=== PATIENT | female | born 1945 | race Caucasian/White ===

== ENCOUNTER 2024-11-10 23:19 | Inpatient (IN) | payer OTHER, MEDICARE, SELFPAY ==
[2024-11-10 17:27] VITALS: BP 95/51
[2024-11-10 17:58] LABS: Hematocrit 33.6 % (37.0-47.0); Hemoglobin 11.1 g/dL (12.0-16.0); Mean Corp Hgb Conc. 33.0 g/dL (33.0-37.0); Mean Corpuscular Volume 87.3 fL (81.0-99.0); Nucleated Red Blood Cells % 0 %; Platelet Count 364 10^3/uL (130-400); Red Cell Dist. Width 14.9 % (11.5-14.5)
[2024-11-10 18:18] LABS: ALT (SGPT) 15 U/L (0-35); AST (SGOT) 16 U/L (14-36); Albumin 3.5 g/dl (3.5-5.0); Alkaline Phosphatase 42 U/L (38-126); Blood Urea Nitrogen 48 mg/dl (7-17); Calcium 8.9 mg/dl (8.4-10.2); Carbon Dioxide 20 mmol/L (22-30); Chloride 105 mmol/L (98-107); Glucose 97 mg/dl (70-99); Potassium 4.3 mmol/L (3.5-5.1); Sodium 132 mmol/L (135-145); Total Protein 5.9 g/dl (6.3-8.2); eGFR 29.94
[2024-11-10 18:30] VITALS: BP 102/81
[2024-11-10 18:42] VITALS: BMI 23.0
--- NOTE | 2024-11-10 18:48 | ED.GENMED ---
History of Present Illness
General
Chief Complaint: Urinary Symptoms
Source: patient
Exam Limitations: none
Time Seen by Provider: 11/10/24 18:41
History of Present Illness
History of Present Illness:
See MDM
Past History
Past History
ED Past Medical History: HTN and NIDDM
ED Past Surgical History: Orthopedic
Social History
Tobacco: Non-smoker
Alcohol: None
Phy Exam
Physical Exam
Physical Exam:
See MDM
Course
Orders/Labs/Results
Orders:
Orders
11/10/24 17:46
CBC/With Diff [Complete Blood Count/With Diff] Urgent
Comprehensive Metabolic Panel Urgent
11/10/24 18:48
0.9% Sodium Chloride 1000 ml [Nss] 1,000 ml IV BOLUS
11/10/24 19:37
STOOL [C difficile Antigen & Toxins] Urgent
[facility] Source: Feces/Stool
Specimen Description:
Stool Culture Urgent
[facility] Source: Feces/Stool
Specimen Description:
11/10/24 20:37
Urinalysis Reflex To Culture Urgent
Abnormal Lab Results
11/10/24
17:46
WBC 11.4 H 10^3/uL
(4.8-10.8)
RBC 3.85 L 10^6/uL
(4.20-5.40)
Hgb 11.1 L g/dL
(12.0-16.0)
Hct 33.6 L %
(37.0-47.0)
RDW 14.9 H %
(11.5-14.5)
Abs Immat Gran (auto) 0.1 H 10^3/uL
(0-0.05)
Absolute Neuts (auto) 7.8 H 10^3/uL
(1.4-6.5)
Absolute Monos (auto) 0.9 H 10^3/uL
(0.1-0.6)
Immature Gran % 0.6 H %
(0-0.5)
Sodium 132 L mmol/L
(135-145)
Carbon Dioxide 20 L mmol/L
(22-30)
BUN 48 H mg/dl
(7-17)
Creatinine 1.7 H mg/dL
(0.6-1.0)
Total Protein 5.9 L g/dl
(6.3-8.2)
11/10/24 17:46
11/10/24 17:46
Vital Signs
Initial and Last Documented VS:
Initial Vital Signs
Temp Pulse Resp BP Pulse Ox
98.9 F 89 16 95/51 98
11/10/24 17:27 11/10/24 17:27 11/10/24 17:27 11/10/24 17:27 11/10/24 17:27
Last Documented Vital Signs
Temp Pulse Resp BP Pulse Ox
98.9 F 89 16 102/81 87
11/10/24 17:27 11/10/24 17:27 11/10/24 17:27 11/10/24 18:30 11/10/24 18:50
MDM/Problems Addressed
Differential Diagnosis Includes:
Note:
CHIEF COMPLAINT(S)
Diarrhea for a couple of days, concern for urinary tract infection.
HISTORY OF PRESENT ILLNESS
The patient is an 79-year-old female presenting with diarrhea for several days. She reports that the diarrhea is not constant and occasionally she takes medication, possibly loperamide, to stop it. She denies any associated abdominal pain except for
a non-tender sensation in the upper abdomen on self-examination. The patient also mentions feeling 'a little off,' as noted by family members, with respect to responding to questions. She has not experienced diarrhea today.
The patient denies any recent antibiotic use and has no history of Clostridioides difficile infection. Concerns were raised by her daughter, who is a nurse and suspects a possible urinary tract infection. The patients dehydration was noted and
likely contributes to her symptoms. There is no significant recent pain, and there was no tenderness upon abdominal palpation.
PAST MEDICAL AND SURGICAL HISTORY
The patient mentioned a past consideration for testing related to diverticulitis or diverticulosis, but she is uncertain about the specifics or outcomes of those considerations.
ADDITIONAL HISTORY OBTAINED FROM SOURCES OTHER THAN THE PATIENT
Per the patient�s daughter, there is a concern for a urinary tract infection and a suggestion of the patient being 'a little off' when answering questions.
REVIEW OF SYSTEMS
- Gastrointestinal: Diarrhea for the past few days, no abdominal pain on palpation.
- Neurological: Family reports the patient sometimes appears 'a little off' in her responses.
PHYSICAL EXAM
General: Alert, no acute distress.
Skin: Warm, dry.
Head: Normocephalic, atraumatic
Neck: Appears supple, trachea midline.
Eyes, Ears, Nose, Mouth, and Throat: Mildly dry mucous membranes
Cardiovascular: No signs of cyanosis
Respiratory: Respirations are non-labored.
Abdomen: Non-distended. Soft nontender
Musculoskeletal: No deformities
Neurological: No focal neurological deficit observed.
Psychiatric: Cooperative, appropriate mood and affect.
PLAN
1. Administer intravenous fluids to manage dehydration.
2. Obtain a urine sample to rule out a urinary tract infection.
3. Consider collecting a stool sample if diarrhea persists and symptoms warrant further investigation.
4. Monitor the patient�s overall condition and mental status.
5. Discussion with the patients daughter for continued home care and observation for further abnormalities.
DIFFERENTIAL DIAGNOSIS
The Differential Diagnosis includes, in no particular order and is not limited to:
1. Viral gastroenteritis
2. Bacterial gastroenteritis
3. Diverticulitis
4. Urinary tract infection
5. Medication-induced diarrhea
6. Clostridioides difficile infection
7. Electrolyte imbalance
8. Dehydration
9. Depression or anxiety
10. Cognitive dysfunction or delirium
11/10/24 - 19:37
Patient exhibits elevated creatinine and decreased GFR, suggesting pre-renal etiology, likely due to dehydration. Admittance for IV fluids is planned. Urinalysis is pending for further evaluation. Patient has a history of chronic pain and has not
taken morphine for four days, raising the possibility of mild opiate withdrawal contributing to diarrhea.
SUMMARY OF ENCOUNTER
The patient, an 79-year-old female, presented with diarrhea for several days and concerns for a urinary tract infection. In the emergency department, she was found to be dehydrated, with elevated creatinine and decreased GFR, suggesting acute kidney
injury. Due to her inability to provide urine and stool samples for immediate analysis and considering her age and presenting symptoms, she was admitted for further evaluation and treatment with intravenous fluids.
DISPOSITION
Admit
ASSESSMENT
The patient displays signs of acute kidney injury, dehydration, and possible urinary tract infection or gastroenteritis. Concerns for C. difficile infection are less likely as the patient was unable to provide a stool sample.
PLAN
1. Admit the patient for further evaluation.
2. Administer intravenous fluids to address dehydration and potential acute kidney injury.
3. Obtain urine and stool samples for further diagnostic investigation once feasible.
4. Conduct a comprehensive workup to assess renal function and potential infections.
5. Consultation with the hospitalist service for inpatient management and further workup.
INDEPENDENT REVIEW OF LABS AND INTERPRETATION OF TESTS
My independent review indicates elevated creatinine and decreased GFR, consistent with pre-renal etiology likely due to dehydration. Urinalysis is pending.
MEDICAL DECISION MAKING
-Complexity of Data Reviewed: Chronic conditions affecting care, including potential diverticulitis, diverticulosis, and suspicion of urinary tract infection. Differential Diagnosis includes viral gastroenteritis, bacterial gastroenteritis,
diverticulitis, urinary tract infection, medication-induced diarrhea, Clostridioides difficile infection, electrolyte imbalance, dehydration, depression or anxiety, cognitive dysfunction, or delirium.
-Data:
Category 1
Clinical information was obtained from an independent historian, the patients daughter, raising concerns about the patients condition. Testing was considered, but stool samples were not collected due to the patients inability to provide, making C.
difficile less likely.
-Risk:
The decision for hospitalization was made to ensure proper management of the patients acute kidney injury, dehydration, and potential infectious process due to her symptoms and age.
DIAGNOSIS
Acute Kidney Injury (N17.9)
Dehydration (E86.0)
Suspicion of Urinary Tract Infection (N39.0)
Suspected Viral Gastroenteritis (A08.4), pending further investigation
*Pulse Oximetry
SaO2: 87
Oxygen Mode of Delivery: Room air
Patient hypoxic: no
*Critical Care Note
Total Time (30-74mins, 75-104mins- exclusive of procedures): Not Applicable
ED Attending Note
-
Portions of this chart may have been created with voice recognition software.� Occasional wrong word or��sound alike� substitutions may have occurred due to the inherent limitations of voice recognition software.
Discharge Plan
Departure
Patient Disposition: Admit
Date of Disposition: 11/10/24
Time of Disposition: 21:51
Admit to: Med/Surg
Presentation/result/management discussed w/ accepting MD/DO: Hospitalist
Discharge Problem:
Acute dehydration, HECTOR (acute kidney injury)
Prescriptions:
No Action
diltiazem HCl [Cardizem CD] 240 MG capsule,extended release 24hr
240 mg PO DAILY
pediatric multivitamin 1 EACH tablet,chewable
1 ea PO DAILY
aspirin 81 MG tablet,delayed release (DR/EC)
81 mg PO DAILY
esomeprazole magnesium [Nexium] 40 MG capsule,delayed release(DR/EC)
40 mg PO DAILY
escitalopram oxalate 20 MG tablet
20 mg PO DAILY
fenofibrate nanocrystallized 145 MG tablet
145 mg PO DAILY
cholecalciferol (vitamin D3) [Vitamin D3] 1,000 UNIT tablet
1,000 unit PO DAILY
Referrals:
Carissa Barreto MD [Family Provider, Family Practice]
Interventions
Interventions:
*Risk Screen - Suicide Last Done: 11/10/24 17:27
*General Assessment Last Done: 11/10/24 18:43
*Neglect/Abuse Screening Last Done: 11/10/24 17:27
*ED- Fall Risk Assessment Last Done: 11/10/24 18:43
*ED COVID-19 Vaccine History Last Done: 11/10/24 18:43
ED-Female Genitourinary Assessment Last Done: 11/10/24 18:43
Discharge Date and Time
Print Language: EAST [place]
[2024-11-10] MEDS: NSS 1000 IV (18:51)
[2024-11-10 20:51] VITALS: BP 121/55
[2024-11-10 21:00] VITALS: BP 114/47
[2024-11-10 22:00] VITALS: BP 118/56
[2024-11-10 22:06] LABS: Urine Character Clear (Clear)
[2024-11-10 22:19] LABS: Urine Squamous Cell 0-2 /LPF (Few)
[2024-11-10 22:20] LABS: Urine Red Blood Cell 0-2 /HPF (0-2); Urine White Cell 0-2 /HPF (0-5)
--- NOTE | 2024-11-10 22:22 | HPS.HSE ---
Family Physician
-
Family Physician: Carissa Barreto
Chief Complaint
-
diarrhea and weakness
History of Present Illness
Ms. Sue Sexton is a 79 yo woman with hx spinal stenosis, essential HTN, NIDDM, DVT who presents to the ER complaining of several days of diarrhea and progressive weakness.
History obtained from patient and I called daughter. Patient states diarrhea started several days ago. It has been decreasing in frequency. Non-bloody. Per daughter she has been progressively weak, and not eating well. Daughter noticed some
reflux/vomit on patient's pillow. Patient denies abdominal pain.
No fevers/chills. No chest pain or trouble breathing.
Medical History
Past Medical History
Past Medical History: Reports Other (spinal stenosis, essential HTN, NIDDM, DVT )
Past Surgical History: Reports Orthopedic
Social History
Tobacco: Non-smoker
Alcohol: None
Family History
Family History: Not pertinent
Allergies / Home Medications
Allergies reflects when Allergies were last updated in [facility].
Home Medications with original date entered in [facility]
Allergy/Medication List:
Allergies
Allergy/AdvReac Type Severity Reaction Status Date / Time
No Known Allergies Allergy Verified 06/02/13 07:39
Home Medications
diltiazem HCl 240 mg capsule,extended release 24 hr (Cardizem CD) 300 mg PO DAILY 06/02/13
fenofibrate nanocrystallized 145 mg tablet 145 mg PO DAILY 06/02/13
apixaban 2.5 mg tablet (Eliquis) 2.5 mg PO BID 11/10/24
buspirone 10 mg tablet 10 mg PO BID 11/10/24
lisinopril 40 mg tablet (Zestril) 40 mg PO DAILY 11/10/24
metformin 500 mg tablet 500 mg PO DAILY 11/10/24
mirtazapine 15 mg tablet 15 mg PO HS 11/10/24
montelukast 10 mg tablet (Singulair) 10 mg PO DAILY 11/10/24
morphine 15 mg immediate release tablet 15 mg DAILY 11/10/24
oxycodone-acetaminophen 10 mg-325 mg tablet (Percocet) 1 tab PO Q4H PRN severe pain 11/10/24
trazodone 150 mg tablet 150 mg HS 11/10/24
venlafaxine 100 mg tablet 225 mg PO DAILY 11/10/24
Review of Systems
-
History Source: Patient
A 12 point ROS was completed and negative except as noted: Yes
Physical Exam
Vital Signs
Vital Signs
Temp Pulse Resp BP Pulse Ox
98.9 F 89 16 118/56 90
11/10/24 17:27 11/10/24 17:27 11/10/24 17:27 11/10/24 22:00 11/10/24 22:04
Physical Exam
General: No Apparent Distress
HEENT: PERRLA
Respiratory: Clear; No Wheezes
Cardiac: S1/S2 and Regular Rhythm
GI: Soft and Non Tender
Musculoskeletal: No Edema
Skin: Warm and Dry; No Rash
Neuro: AO x 3
Psych: Calm
Laboratory Results
-
11/10/24 17:46
11/10/24 17:46
Laboratory Results
Total Bilirubin 0.5 mg/dl (0.2-1.3) 11/10/24 17:46
AST 16 U/L (14-36) 11/10/24 17:46
ALT 15 U/L (0-35) 11/10/24 17:46
Alkaline Phosphatase 42 U/L (38-126) 11/10/24 17:46
Data Reviewed
-
Diagnostic Radiology: Report Reviewed by me
Lab Data: Labs Reviewed by me
Impression/Plan
-
Ms. Sue Sexton is a 79 yo woman with hx spinal stenosis, essential HTN, NIDDM, DVT who presents to the ER complaining of several days of diarrhea and progressive weakness.
Triage VS: T 98.9, P 89, RR 16, BP 95/51, SpO2 98%
LABS: WBC 11.4, Hg 11.1, PLT 364, Na 132, K+ 4.3, CO2 20, BUN 48, Cr 1.7, Glucose 97, liver enzymes WNL
UA with 0-2 WBC
MAR: 1L IVF
Diarrhea
Weakness
HECTOR with creatinine 1.7
-follow up C. Diff, stool culture, norovirus
-continue IVF (LR) overnight
-patient has no abdominal pain, reports being hungry - diet ordered
-PT/OT
-hold BENDING FRAME OPERATOR Lisinopril
-monitor renal function
-add on magnesium
Essential HTN
-hold Lisinopril as above
-continue BENDING FRAME OPERATOR Diltiazem
Spinal Stenosis
Hx Spinal Surgery
Chronic Pain, Opiate Dependence
-daughter states that patient hasn't received her morning Morphine in several days. Currently patient denying pain
-will continue PRN Percocet 10
-resume standing Morphine if patient has significant pain
-PT/OT
NIDDM
-hold BENDING FRAME OPERATOR Metformin
Hx DVT
-BENDING FRAME OPERATOR Eliquis, patient has not yet taken evening dose
Depression
-BENDING FRAME OPERATOR Remeron
-BENDING FRAME OPERATOR Buspar
-BENDING FRAME OPERATOR Effexor ER 225mg daily
I confirmed med rec with daughter (RN) at home
DVT PPx Eliquis
FULL CODE
[2024-11-10 23:05] VITALS: BP 132/102
[2024-11-10] MEDS: BUSPAR 10 MG PO (23:12)
[2024-11-10] MEDS: ELIQUIS 2.5 MG PO (23:12)
[2024-11-10] MEDS: REMERON 15 MG PO (23:12)
[2024-11-10 23:42] LABS: Magnesium 1.6 mg/dl (1.6-2.3)
[2024-11-11] VITALS (7 sets, daily range): BP systolic 123–169; BP diastolic 64–103; PULSE 102; O2SAT 94; BMI 23.4
[2024-11-11 00:53] LABS: Glucose - Point of Care 98 mg/dl (70-99)
[2024-11-11] MEDS: LR 1000 IV ×2 (01:09→13:27)
[2024-11-11 07:49] LABS: Glucose - Point of Care 114 mg/dl (70-99)
[2024-11-11 07:57] LABS: Hematocrit 33.4 % (37.0-47.0); Hemoglobin 11.1 g/dL (12.0-16.0); Mean Corp Hgb Conc. 33.2 g/dL (33.0-37.0); Mean Corpuscular Volume 86.5 fL (81.0-99.0); Platelet Count 363 10^3/uL (130-400); Red Cell Dist. Width 14.6 % (11.5-14.5)
[2024-11-11] MEDS: DESENEX/MITRAZOL/ZEASORB 1 APPLIC TOPICAL ×2 (08:02→19:07)
[2024-11-11] MEDS: NOVOLOG FLEXPEN-LOW RESISTANCE SC ×2 (08:02→12:51)
[2024-11-11] MEDS: ELIQUIS 2.5 MG PO ×2 (08:02→19:11)
[2024-11-11] MEDS: BUSPAR 10 MG PO ×2 (08:02→19:06)
[2024-11-11] MEDS: EFFEXOR XR 225 MG PO (08:03)
[2024-11-11] MEDS: SINGULAIR 10 MG PO (08:03)
[2024-11-11] MEDS: CARDIZEM CD 300 MG PO ×2 (08:15→08:31)
[2024-11-11 08:23] LABS: Blood Urea Nitrogen 33 mg/dl (7-17); Calcium 9.3 mg/dl (8.4-10.2); Carbon Dioxide 24 mmol/L (22-30); Chloride 109 mmol/L (98-107); Estimated Creatinine Clearance 33 ml/min; Glucose 100 mg/dl (70-99); Magnesium 1.6 mg/dl (1.6-2.3); Potassium 4.4 mmol/L (3.5-5.1); Sodium 138 mmol/L (135-145); eGFR 50.48
[2024-11-11 08:54] LABS: Glycohemoglobin (HgbA1c) 6.5 % (4.0-5.6)
[2024-11-11 12:26] LABS: Glucose - Point of Care 117 mg/dl (70-99)
--- NOTE | 2024-11-11 12:48 | W.PN.HOSP.TC ---
Today's Communication/Plan
-
Assessment / Plan
Assessment / Plan
General: No Apparent Distress, uncomfortable due to copious loose stools
HEENT: NormoCephalic, Moist mucous membranes, Atraumatic
Respiratory: Clear and Non Labored Respirations
Cardiac: S1/S2 and Regular Rhythm; No Rub or Gallop
GI: Soft, mild TTP, Non Distended and Normal Bowel Sounds
Musculoskeletal: No Edema, no deformity
Skin: Warm and dry
: NO Walls
Neuro: Awake, Alert, Nonfocal/grossly intact
Psych: Calm and cooperative
Ms. Sexton is an 79-year-old female with a medical history of spinal stenosis (on chronic pain medications), hypertension, DVT (on low-dose Eliquis), COPD/asthma, glaucoma, polymyositis, and [id number] diabetes mellitus who presented
with nonbloody diarrhea and progressive weakness. She was mildly hypotensive and found to have an HECTOR with a creatinine of 1.7. She was started on IV fluids and has been admitted for further evaluation and management.
Diarrhea:
- Unclear etiology, infectious versus possible withdrawal symptom after missing several days of her oral morphine sulfate which she takes for back pain
- Stool studies including C. difficile and norovirus pending
- Continuing IV fluids, monitor electrolytes and replete as needed
- Restarting home dose of morphine sulfate, will monitor for symptom improvement
- If infectious workup is negative, will treat supportively with loperamide as needed
HECTOR:
- Suspect prerenal in the setting of hypovolemia due to diarrhea
- Initial creatinine 1.7, improved to 1.1 on labs today
- Will continue resuscitative fluids and monitor renal function
Hypertension:
-Presenting hypotension is now resolved
- Will resume home lisinopril 40 mg daily
Spinal stenosis, chronic back pain:
- Opiate dependent, will continue home dose of morphine sulfate
- Additional Percocet as needed which is her home regimen
NIDDM:
- Holding home metformin due to presenting renal dysfunction
- Treating with sliding scale insulin for now
- Blood glucose currently well-controlled, continue Accu-Cheks
- Hemoglobin A1c 6.5%
History of DVT:
- Continue home low-dose Eliquis
Depression:
- Continue home Remeron 15 mg at night, buspirone 10 mg twice daily, and venlafaxine 225 mg daily
DVT prophylaxis: Eliquis
CODE STATUS: Full code
Total time spent on today's encounter was 41 minutes
Anticipated Discharge: 24 - 48 hours
Subjective/Interval History
-
Date of Service: November 11, 2024
Patient was seen and examined at bedside this morning. Having multiple episodes of watery diarrhea. Now experiencing abdominal pain and cramping. C. difficile testing pending.
Objective Data
-
Labs:
Laboratory Results
11/11/24
07:33
WBC 8.9
Hgb 11.1 L
Hct 33.4 L
Plt Count 363
Sodium 138
Potassium 4.4
Chloride 109 H
Carbon Dioxide 24
BUN 33 H
Creatinine 1.1 H
Glucose 100 H
Calcium 9.3
Vital Signs:
Vital Signs
Temp Pulse Resp BP Pulse Ox
98 F 98 16 165/86 96
11/11/24 07:45 11/11/24 08:31 11/11/24 07:45 11/11/24 08:31 11/11/24 07:45
I&O
11/10/24 11/11/24 11/12/24
06:59 06:59 06:59
Intake Total 680 / 680
Output Total 100 / 100
Balance 680 / 680 -100 / -100
Review of Systems
-
History Source: Patient
All other systems: Reviewed and negative
Abdomen/GI: Reports Abdominal Pain and Diarrhea
Physical Exam
-
General: No Apparent Distress
[2024-11-11] MEDS: MS CONTIN (EXTENDED RELEASE) PO (13:27)
[2024-11-11] MEDS: ZESTRIL 40 MG PO (13:27)
[2024-11-11] MEDS: ROXICODONE 5 MG PO (15:14)
[2024-11-11 17:11] LABS: Glucose - Point of Care 165 mg/dl (70-99)
[2024-11-11] MEDS: NOVOLOG FLEXPEN-LOW RESISTANCE 1 UNITS SC (17:43)
[2024-11-11] MEDS: MS CONTIN (EXTENDED RELEASE) 15 MG PO (19:06)
[2024-11-11] MEDS: DESYREL 150 MG PO (21:01)
[2024-11-11] MEDS: REMERON 15 MG PO (21:02)
[2024-11-11 21:58] LABS: Glucose - Point of Care 105 mg/dl (70-99)
[2024-11-12] MEDS: LR 1000 IV (02:13)
[2024-11-12 07:24] VITALS: BP 145/79
[2024-11-12] MEDS: ZESTRIL 40 MG PO (07:49)
[2024-11-12] MEDS: EFFEXOR XR 225 MG PO (07:49)
[2024-11-12] MEDS: SINGULAIR 10 MG PO (07:50)
[2024-11-12] MEDS: ELIQUIS 2.5 MG PO ×2 (07:50→21:01)
[2024-11-12] MEDS: BUSPAR 10 MG PO ×2 (07:50→21:01)
[2024-11-12] MEDS: MS CONTIN (EXTENDED RELEASE) 15 MG PO ×2 (07:50→20:59)
[2024-11-12] MEDS: DESENEX/MITRAZOL/ZEASORB 1 APPLIC TOPICAL ×2 (07:51→21:02)
[2024-11-12 08:04] LABS: Hematocrit 31.5 % (37.0-47.0); Hemoglobin 10.6 g/dL (12.0-16.0); Mean Corp Hgb Conc. 33.7 g/dL (33.0-37.0); Mean Corpuscular Volume 84.5 fL (81.0-99.0); Nucleated Red Blood Cells % 0 %; Red Cell Dist. Width 14.4 % (11.5-14.5)
[2024-11-12 08:17] LABS: Glucose - Point of Care 102 mg/dl (70-99)
[2024-11-12 08:23] LABS: Blood Urea Nitrogen 19 mg/dl (7-17); Calcium 9.3 mg/dl (8.4-10.2); Carbon Dioxide 23 mmol/L (22-30); Chloride 111 mmol/L (98-107); Estimated Creatinine Clearance 52 ml/min; Glucose 94 mg/dl (70-99); Magnesium 1.5 mg/dl (1.6-2.3); Potassium 4.5 mmol/L (3.5-5.1); Sodium 138 mmol/L (135-145); eGFR > 60.00
[2024-11-12] MEDS: NOVOLOG FLEXPEN-LOW RESISTANCE SC ×2 (08:26→12:02)
[2024-11-12 11:19] LABS: Glucose - Point of Care 138 mg/dl (70-99)
--- NOTE | 2024-11-12 11:31 | W.PN.HOSP.TC ---
Today's Communication/Plan
-
Assessment / Plan
Assessment / Plan
General: No Apparent Distress, uncomfortable due to copious loose stools
HEENT: NormoCephalic, Moist mucous membranes, Atraumatic
Respiratory: Clear and Non Labored Respirations
Cardiac: S1/S2 and Regular Rhythm; No Rub or Gallop
GI: Soft, mild TTP, Non Distended and Normal Bowel Sounds
Musculoskeletal: No Edema, no deformity
Skin: Warm and dry
: NO Walls
Neuro: Awake, Alert, Nonfocal/grossly intact
Psych: Calm and cooperative
Ms. Sexton is an 79-year-old female with a medical history of spinal stenosis (on chronic pain medications), hypertension, DVT (on low-dose Eliquis), COPD/asthma, glaucoma, polymyositis, and fbt-lrrffrk-ekyqgskit diabetes mellitus who presented
with nonbloody diarrhea and progressive weakness. She was mildly hypotensive and found to have an HECTOR with a creatinine of 1.7. She was started on IV fluids and has been admitted for further evaluation and management.
Diarrhea:
- Unclear etiology
- Stool studies negative for C. difficile, Salmonella/Shigella/Campylobacter pending
- No longer requiring IV fluids
- Mild hypomagnesemia today with serum level of 1.5, repleting IV
- Started loperamide for supportive care now that C. difficile is negative
- Possible that her home metformin has been causing her GI symptoms, have been holding metformin while inpatient and symptoms have resolved
- If GI symptoms remain stable and she is able to tolerate diet then would be medically stable for discharge
- Avoid overuse of laxatives
HECTOR:
- Suspect prerenal in the setting of hypovolemia due to diarrhea
- Initial creatinine 1.7, resolved to 0.7 on labs today
- No longer requiring IV fluids
Hypertension:
-Presenting hypotension is now resolved
- Resumed home lisinopril 40 mg daily
Spinal stenosis, chronic back pain:
- Opiate dependent, will continue home dose of morphine sulfate
- Additional Percocet as needed which is her home regimen
- If using bowel regimen for constipation should have holding parameters for diarrhea
NIDDM:
- Holding home metformin due to presenting renal dysfunction, will continue to hold metformin due to possible GI side effects
- Starting pioglitazone
- Additional sliding scale insulin as needed
- Blood glucose currently well-controlled, continue Accu-Cheks
- Hemoglobin A1c 6.5%
History of DVT:
- Continue home low-dose Eliquis
Depression:
- Continue home Remeron 15 mg at night, buspirone 10 mg twice daily, and venlafaxine 225 mg daily
DVT prophylaxis: Eliquis
CODE STATUS: Full code
Total time spent on today's encounter was 54 minutes
Anticipated Discharge: 24 - 48 hours
Subjective/Interval History
-
Date of Service: November 12, 2024
Patient was seen and examined at bedside this morning. Diarrhea and abdominal pain have resolved. C. difficile is negative.
Objective Data
-
Labs:
Laboratory Results
11/12/24
07:10
WBC 8.4
Hgb 10.6 L
Hct 31.5 L
Plt Count
Sodium 138
Potassium 4.5
Chloride 111 H
Carbon Dioxide 23
BUN 19 H
Creatinine 0.7
Glucose 94
Calcium 9.3
Vital Signs:
Vital Signs
Temp Pulse Resp BP Pulse Ox
98.0 F 81 16 145/79 93
11/12/24 07:24 11/12/24 07:24 11/12/24 07:24 11/12/24 07:24 11/12/24 07:24
I&O
11/11/24 11/12/24 11/13/24
06:59 06:59 06:59
Intake Total 680 / 680 480 / 480
Output Total 1000 / 1000
Balance 680 / 680 -520 / -520
Review of Systems
-
History Source: Patient
All other systems: Reviewed and negative
Physical Exam
-
General: No Apparent Distress
[2024-11-12] MEDS: MAGNESIUM SULFATE 100 IV (11:34)
[2024-11-12] MEDS: ACTOS 15 MG PO (11:34)
--- NOTE | 2024-11-12 11:44 | CM ---
CM reviewed chart, patient seen bedside, initial assessment completed. The patient is an 79-year-old female presenting with diarrhea for several days.
Patient resides with her and daughter in a multiple story home, ramp to enter. Patient reports having a cane and walker in the home. Patient reports VN in the past, unsure the name of the agency. Pharmacy [facility], confirms prescription
coverage. Patient denies insecurities at home. Therapy recommending SNF at this time- call to patients , VM left to discuss recommendations. CM will continue to follow for all discharge planning needs.
Plan; therapy recommending SNF, VM left with family to discuss
[2024-11-12] MEDS: VISBIOME 1 CAP PO (12:36)
[2024-11-12 15:16] VITALS: BP 135/70
[2024-11-12 16:12] LABS: Glucose - Point of Care 158 mg/dl (70-99)
[2024-11-12] MEDS: NOVOLOG FLEXPEN-LOW RESISTANCE 1 UNITS SC (16:59)
[2024-11-12] MEDS: XANAX 0.5 MG PO (18:05)
[2024-11-12] MEDS: DESYREL 150 MG PO (21:01)
[2024-11-12] MEDS: REMERON 15 MG PO (21:02)
[2024-11-12] MEDS: ROXICODONE 5 MG PO (21:06)
[2024-11-12 21:35] LABS: Glucose - Point of Care 147 mg/dl (70-99)
[2024-11-12 23:21] VITALS: BP 134/70
[2024-11-13 05:56] LABS: Blood Urea Nitrogen 19 mg/dl (7-17); Calcium 9.2 mg/dl (8.4-10.2); Carbon Dioxide 26 mmol/L (22-30); Chloride 109 mmol/L (98-107); Estimated Creatinine Clearance 46 ml/min; Glucose 130 mg/dl (70-99); Magnesium 1.6 mg/dl (1.6-2.3); Potassium 4.1 mmol/L (3.5-5.1); Sodium 138 mmol/L (135-145); eGFR > 60.00
[2024-11-13 06:19] LABS: Hematocrit 32.2 % (37.0-47.0); Hemoglobin 10.6 g/dL (12.0-16.0); Mean Corp Hgb Conc. 32.9 g/dL (33.0-37.0); Mean Corpuscular Volume 85.0 fL (81.0-99.0); Nucleated Red Blood Cells % 0 %; Platelet Count 405 10^3/uL (130-400); Red Cell Dist. Width 14.6 % (11.5-14.5)
[2024-11-13 07:00] VITALS: BP 141/75
[2024-11-13 07:37] LABS: Glucose - Point of Care 109 mg/dl (70-99)
[2024-11-13] MEDS: NOVOLOG FLEXPEN-LOW RESISTANCE SC ×2 (08:31→17:05)
[2024-11-13] MEDS: ZESTRIL 40 MG PO (08:32)
[2024-11-13] MEDS: EFFEXOR XR 225 MG PO (08:34)
[2024-11-13] MEDS: ACTOS 15 MG PO (08:34)
[2024-11-13] MEDS: ELIQUIS 2.5 MG PO ×2 (08:35→19:32)
[2024-11-13] MEDS: MS CONTIN (EXTENDED RELEASE) 15 MG PO ×2 (08:35→19:31)
[2024-11-13] MEDS: VISBIOME 1 CAP PO (08:35)
[2024-11-13] MEDS: SINGULAIR 10 MG PO (08:35)
[2024-11-13] MEDS: BUSPAR 10 MG PO ×2 (08:36→19:31)
[2024-11-13] MEDS: CARDIZEM CD 300 MG PO (08:36)
[2024-11-13] MEDS: DESENEX/MITRAZOL/ZEASORB 1 APPLIC TOPICAL ×2 (08:37→19:31)
[2024-11-13 11:56] LABS: Glucose - Point of Care 157 mg/dl (70-99)
[2024-11-13] MEDS: NOVOLOG FLEXPEN-LOW RESISTANCE 1 UNITS SC (12:29)
[2024-11-13] MEDS: XANAX 0.5 MG PO ×2 (12:29→21:22)
[2024-11-13 13:36] LABS: ALT (SGPT) 10 U/L (0-35); AST (SGOT) 13 U/L (14-36); Albumin 3.1 g/dl (3.5-5.0); Alkaline Phosphatase 37 U/L (38-126); Total Protein 5.3 g/dl (6.3-8.2)
[2024-11-13] MEDS: ROXICODONE 5 MG PO (15:20)
[2024-11-13] MEDS: IMODIUM 2 MG PO (15:20)
--- NOTE | 2024-11-13 15:20 | CM ---
CM reviewed chart, placed call to patients daughter, Yaya, to discuss therapy recommendations of SNF. Daughter reports she will need to speak to her sister, father, and patient about this. Daughter reports her mother is typically oriented and
not confused, patient is not currently at her baseline. Daughter reports years ago patient was in [facility], would likely be looking for SNF in [facility]. CM will continue to follow for all discharge planning needs.
Plan; family would like to discuss SNF, will need referrals/auth if agreeable
--- NOTE | 2024-11-13 15:29 | W.PN.HOSP.TC ---
Today's Communication/Plan
-
Assessment / Plan
Assessment / Plan
General: No Apparent Distress, comfortable
HEENT: NormoCephalic, Moist mucous membranes, Atraumatic
Respiratory: Clear and Non Labored Respirations
Cardiac: S1/S2 and Regular Rhythm; No Rub or Gallop
GI: Soft, mild TTP, Non Distended and Normal Bowel Sounds
Musculoskeletal: No Edema, no deformity
Skin: Warm and dry
: NO Walls
Neuro: Awake, Alert, Nonfocal/grossly intact
Psych: Calm and cooperative
Ms. Sexton is an 79-year-old female with a medical history of spinal stenosis (on chronic pain medications), hypertension, DVT (on low-dose Eliquis), COPD/asthma, glaucoma, polymyositis, and chi-cfuvpws-nxwvwfdge diabetes mellitus who presented
with nonbloody diarrhea and progressive weakness. She was mildly hypotensive and found to have an HECTOR with a creatinine of 1.7. She was started on IV fluids and has been admitted for further evaluation and management.
Diarrhea:
- Unclear etiology, improving, no more watery stools, had a large soft bowel movement this morning
- Stool studies negative for C. difficile or norovirus, Salmonella/Shigella/Campylobacter pending
- No longer requiring IV fluids, electrolytes within normal limits
- Started loperamide for supportive care now that C. difficile is negative
- Possible that her home metformin has been causing her GI symptoms, have been holding metformin while inpatient and symptoms have resolved
- Avoid overuse of laxatives
- PT/OT recommending SNF which is being arranged
Confusion:
- Patient intermittently appears confused and appears to be having hallucinations
- Suspect hospital associated delirium, also likely contributed to by acute diarrheal illness
- Will check repeat UA for possible urinary tract infection considering recent diarrhea
- Discussed with inpatient neurologist, recommended she may need to follow-up in the outpatient neurology office for neuropsychiatric testing if mental status changes continue after hospital discharge
HECTOR:
- Now resolved
- Suspect prerenal in the setting of hypovolemia due to diarrhea
- Initial creatinine 1.7, resolved to 0.8 on labs today
- No longer requiring IV fluids
Hypertension:
-Presenting hypotension is now resolved
- Resumed home lisinopril 40 mg daily
Spinal stenosis, chronic back pain:
- Opiate dependent, will continue home dose of morphine sulfate
- Additional Percocet as needed which is her home regimen
- If using bowel regimen for constipation should have holding parameters for diarrhea
NIDDM:
- Holding home metformin due to presenting renal dysfunction, will continue to hold metformin due to possible GI side effects
- Started pioglitazone
- Additional sliding scale insulin as needed
- Blood glucose currently well-controlled, continue Accu-Cheks
- Hemoglobin A1c 6.5%
History of DVT:
- Continue home low-dose Eliquis
Depression:
- Continue home Remeron 15 mg at night, buspirone 10 mg twice daily, and venlafaxine 225 mg daily
DVT prophylaxis: Eliquis
CODE STATUS: Full code
Total time spent on today's encounter was 55 minutes
Anticipated Discharge: > 48 hours
Subjective/Interval History
-
Date of Service: November 13, 2024
Patient was seen and examined at bedside. Diarrhea has resolved. She does remain confused.
Objective Data
-
Labs:
Laboratory Results
11/13/24 11/13/24
05:02 05:03
WBC 10.7
Hgb 10.6 L
Hct 32.2 L
Plt Count 405 H
Sodium 138
Potassium 4.1
Chloride 109 H
Carbon Dioxide 26
BUN 19 H
Creatinine 0.8
Glucose 130 H
Calcium 9.2
Total Bilirubin 0.2
AST 13 L
ALT 10
Alkaline Phosphatase 37 L
Vital Signs:
Vital Signs
Temp Pulse Resp BP Pulse Ox
98 F 74 16 141/75 94
11/13/24 07:00 11/13/24 08:36 11/13/24 07:00 11/13/24 08:36 11/13/24 07:00
I&O
11/12/24 11/13/24 11/14/24
06:59 06:59 06:59
Intake Total 480 / 480 930 / 930
Output Total 1000 / 1000 1100 / 1100
Balance -520 / -520 -170 / -170
Review of Systems
-
History Source: Patient
All other systems: Reviewed and negative
Physical Exam
-
General: No Apparent Distress
[2024-11-13 16:38] VITALS: BP 120/63
[2024-11-13 17:01] LABS: Glucose - Point of Care 131 mg/dl (70-99)
[2024-11-13 20:55] LABS: Glucose - Point of Care 150 mg/dl (70-99)
[2024-11-13] MEDS: DESYREL 150 MG PO (21:22)
[2024-11-13] MEDS: REMERON 15 MG PO (21:22)
[2024-11-13 23:00] VITALS: BP 127/66
[2024-11-14 07:00] VITALS: BP 114/54
[2024-11-14 07:20] LABS: Glucose - Point of Care 129 mg/dl (70-99)
[2024-11-14 08:01] LABS: Hematocrit 31.6 % (37.0-47.0); Hemoglobin 10.3 g/dL (12.0-16.0); Mean Corp Hgb Conc. 32.6 g/dL (33.0-37.0); Mean Corpuscular Volume 86.6 fL (81.0-99.0); Nucleated Red Blood Cells % 0 %; Platelet Count 379 10^3/uL (130-400); Red Cell Dist. Width 14.9 % (11.5-14.5)
[2024-11-14] MEDS: NOVOLOG FLEXPEN-LOW RESISTANCE SC (08:16)
[2024-11-14] MEDS: CARDIZEM CD 300 MG PO (08:17)
[2024-11-14] MEDS: ZESTRIL 40 MG PO (08:18)
[2024-11-14] MEDS: ELIQUIS 2.5 MG PO ×2 (08:18→19:48)
[2024-11-14] MEDS: BUSPAR 10 MG PO ×2 (08:18→19:48)
[2024-11-14] MEDS: MS CONTIN (EXTENDED RELEASE) 15 MG PO ×2 (08:18→19:48)
[2024-11-14] MEDS: EFFEXOR XR 225 MG PO (08:18)
[2024-11-14] MEDS: VISBIOME 1 CAP PO (08:18)
[2024-11-14] MEDS: SINGULAIR 10 MG PO (08:18)
[2024-11-14] MEDS: ACTOS 15 MG PO (08:18)
[2024-11-14] MEDS: DESENEX/MITRAZOL/ZEASORB 1 APPLIC TOPICAL ×2 (08:19→19:48)
[2024-11-14 08:39] LABS: Blood Urea Nitrogen 16 mg/dl (7-17); Calcium 8.7 mg/dl (8.4-10.2); Carbon Dioxide 23 mmol/L (22-30); Chloride 108 mmol/L (98-107); Estimated Creatinine Clearance 46 ml/min; Glucose 128 mg/dl (70-99); Magnesium 1.4 mg/dl (1.6-2.3); Potassium 4.2 mmol/L (3.5-5.1); Sodium 136 mmol/L (135-145); eGFR > 60.00
[2024-11-14] MEDS: PERCOCET 5/325 1 TABLET PO ×2 (10:44→15:18)
--- NOTE | 2024-11-14 10:58 | W.PN.HOSP.TC ---
Today's Communication/Plan
-
anticipate d/c to SNF
Assessment / Plan
Assessment / Plan
Ms. Sexton is an 79-year-old female with a medical history of spinal stenosis (on chronic pain medications), hypertension, DVT (on low-dose Eliquis), COPD/asthma, glaucoma, polymyositis, and mfu-jkosbzk-oaowxnsvc diabetes mellitus who presented
with nonbloody diarrhea and progressive weakness. She was mildly hypotensive and found to have an HECTOR with a creatinine of 1.7. She was started on IV fluids and has been admitted for further evaluation and management.
Diarrhea--suspect home metformin has been causing her GI symptoms, have been holding metformin while inpatient and symptoms have resolved
- Stool studies negative for C. difficile or norovirus, Salmonella/Shigella/Campylobacter pending
- Started loperamide for supportive care now that C. difficile is negative
- Avoid overuse of laxatives
- PT/OT recommending SNF which is being arranged
Confusion--on chronic narcotic meds at home--? as the cause or mild withdrawal from not receiving meds as the cause--follow
- Was Discussed with inpatient neurologist, recommended she may need to follow-up in the outpatient neurology office for neuropsychiatric testing if mental status changes continue after hospital discharge
HECTOR:
- Now resolved
- Suspect prerenal in the setting of hypovolemia due to diarrhea
- Initial creatinine 1.7, resolved to 0.8 on labs today
- No longer requiring IV fluids
Hypertension:
-Presenting hypotension is now resolved
- Resumed home lisinopril 40 mg daily
Spinal stenosis, chronic back pain:
- Opiate dependent, will continue home dose of morphine sulfate
- Additional Percocet as needed which is her home regimen
- If using bowel regimen for constipation should have holding parameters for diarrhea
NIDDM:
- Holding home metformin due to presenting renal dysfunction, will continue to hold metformin due to possible GI side effects
- Started pioglitazone
- Additional sliding scale insulin as needed
- Blood glucose currently well-controlled, continue Accu-Cheks
- Hemoglobin A1c 6.5%
History of DVT:
- Continue home low-dose Eliquis
Depression:
- Continue home Remeron 15 mg at night, buspirone 10 mg twice daily, and venlafaxine 225 mg daily
DVT prophylaxis: Eliquis
CODE STATUS: Full code
Anticipated Discharge: Within 24 hours
Subjective/Interval History
-
Date of Service: November 14, 2024
pt c/o arm pain --says she slept funny
Objective Data
-
Labs:
Laboratory Results
11/14/24 11/14/24
06:46 07:09
WBC Cancelled 10.0
Hgb Cancelled 10.3 L
Hct Cancelled 31.6 L
Plt Count Cancelled 379
Sodium Cancelled 136
Potassium Cancelled 4.2
Chloride Cancelled 108 H
Carbon Dioxide Cancelled 23
BUN Cancelled 16
Creatinine Cancelled 0.8
Glucose Cancelled 128 H
Calcium Cancelled 8.7
Vital Signs:
max temp for 24 hours
11/13/24
23:00
Temp 98.3 F
Vital Signs
Temp Pulse Resp BP Pulse Ox
97.8 F 81 14 114/54 93
11/14/24 07:00 11/14/24 07:00 11/14/24 07:00 11/14/24 07:00 11/14/24 07:00
I&O
11/13/24 11/14/24 11/15/24
06:59 06:59 06:59
Intake Total 930 / 930
Output Total 1100 / 1100
Balance -170 / -170
Review of Systems
-
All other systems: Reviewed and negative
Musculoskeletal: Reports Other (left shoulder pain)
Physical Exam
-
General: Well Developed, Well Nourished and No Apparent Distress
HEENT: Normocephalic and Atraumatic
Respiratory: Clear to Auscultation; Negative Wheezes or Rhonchi
Cardiac: Regular Rhythm and S1/S2; Negative Murmur
GI: Soft, Nontender, Nondistended and Normal Bowel Sounds
Musculoskeletal: No Clubbing, No Cyanosis and No Edema
Skin: Warm
Neuro: Awake
[2024-11-14 11:28] LABS: Glucose - Point of Care 209 mg/dl (70-99)
[2024-11-14] MEDS: NOVOLOG FLEXPEN-LOW RESISTANCE 2 UNITS SC (13:37)
[2024-11-14 15:00] VITALS: BP 118/55
[2024-11-14 16:38] LABS: Glucose - Point of Care 163 mg/dl (70-99)
[2024-11-14] MEDS: NOVOLOG FLEXPEN-LOW RESISTANCE 1 UNITS SC (17:41)
[2024-11-14 21:05] LABS: Urine Character Clear (Clear)
[2024-11-14] MEDS: DESYREL 150 MG PO (21:14)
[2024-11-14] MEDS: REMERON 15 MG PO (21:14)
[2024-11-14 21:19] LABS: Glucose - Point of Care 123 mg/dl (70-99)
[2024-11-14 21:30] LABS: Urine Squamous Cell >30 /LPF (Few)
[2024-11-14 21:31] LABS: Urine Red Blood Cell 0-2 /HPF (0-2); Urine White Cell 21-25 /HPF (0-5)
[2024-11-14] MEDS: XANAX 0.5 MG PO (21:36)
[2024-11-14 23:00] VITALS: BP 126/83
[2024-11-15 07:00] VITALS: BP 148/72
[2024-11-15 08:38] LABS: Glucose - Point of Care 132 mg/dl (70-99)
[2024-11-15 08:47] LABS: Hematocrit 31.2 % (37.0-47.0); Hemoglobin 10.1 g/dL (12.0-16.0); Mean Corp Hgb Conc. 32.4 g/dL (33.0-37.0); Mean Corpuscular Volume 87.4 fL (81.0-99.0); Platelet Count 359 10^3/uL (130-400); Red Cell Dist. Width 14.8 % (11.5-14.5)
[2024-11-15] MEDS: NOVOLOG FLEXPEN-LOW RESISTANCE SC ×2 (08:57→14:12)
[2024-11-15] MEDS: ACTOS 15 MG PO (08:58)
[2024-11-15] MEDS: PERCOCET 5/325 1 TABLET PO ×3 (08:58→23:30)
[2024-11-15] MEDS: MS CONTIN (EXTENDED RELEASE) 15 MG PO ×2 (08:58→19:27)
[2024-11-15] MEDS: CARDIZEM CD 300 MG PO (08:58)
[2024-11-15] MEDS: VISBIOME 1 CAP PO (08:59)
[2024-11-15] MEDS: EFFEXOR XR 225 MG PO (08:59)
[2024-11-15] MEDS: BUSPAR 10 MG PO ×2 (08:59→19:27)
[2024-11-15] MEDS: ZESTRIL 40 MG PO (08:59)
[2024-11-15] MEDS: ELIQUIS 2.5 MG PO ×2 (08:59→19:27)
[2024-11-15] MEDS: SINGULAIR 10 MG PO (09:00)
[2024-11-15] MEDS: DESENEX/MITRAZOL/ZEASORB 1 APPLIC TOPICAL ×2 (09:02→19:33)
[2024-11-15] MEDS: XANAX 0.5 MG PO (09:13)
[2024-11-15 09:50] LABS: ALT (SGPT) 18 U/L (0-35); AST (SGOT) 18 U/L (14-36); Albumin 2.9 g/dl (3.5-5.0); Alkaline Phosphatase 36 U/L (38-126); Blood Urea Nitrogen 17 mg/dl (7-17); Calcium 8.9 mg/dl (8.4-10.2); Carbon Dioxide 23 mmol/L (22-30); Chloride 108 mmol/L (98-107); Estimated Creatinine Clearance 46 ml/min; Glucose 131 mg/dl (70-99); Magnesium 1.5 mg/dl (1.6-2.3); Potassium 4.5 mmol/L (3.5-5.1); Sodium 135 mmol/L (135-145); Total Protein 5.0 g/dl (6.3-8.2); eGFR > 60.00
--- NOTE | 2024-11-15 10:22 | W.PN.HOSP.TC ---
Addendum entered and electronically signed by Shayy Hartman MD 11/15/24 13:45:
# Acute metabolic encephalopathy, resolved
Original Note:
Today's Communication/Plan
-
see A/P
Assessment / Plan
Assessment / Plan
HPI: 79-year-old female with medical history of spinal stenosis (on chronic pain medications), hypertension, DVT on low-dose Eliquis, COPD/asthma, glaucoma, polymyositis, and NIDDM; who presented with nonbloody diarrhea and progressive weakness.
She was mildly hypotensive and found to have an HECTOR with a creatinine of 1.7. She was started on IV fluids and has been admitted for further evaluation and management.
A/P:
# Diarrhea, suspect home metformin S/E
held metformin while inpatient and symptoms have resolved
Stool culture negative, C. difficile/Norovirus negative
Started loperamide PRN
Avoid overuse of laxatives
PT/OT recommending SNF which is being arranged
# Confusion, likely from mild opiate withdrawal
# Chronic pain with opiate dependence
resumed WIND POWER PROJECT MANAGER Morphine ER, MS improved
follow-up outpatient neurology office for neuropsychiatric testing if mental status
# HECTOR, resolved. Suspect prerenal in the setting of hypovolemia due to diarrhea
Initial creatinine 1.7, resolved to 0.8 on labs today
No longer requiring IV fluids
# Hypertension
Presenting hypotension now resolved
Resumed home lisinopril 40 mg daily
# Spinal stenosis, chronic back pain
Opiate dependent, will continue home dose of morphine sulfate
Additional Percocet as needed which is her home regimen
If using bowel regimen for constipation should have holding parameters for diarrhea
# NIDDM
Holding home metformin
Started pioglitazone
Additional sliding scale insulin as needed
Blood glucose currently well-controlled, continue Accu-Cheks
Hemoglobin A1c 6.5%
# History of DVT:
Continue home low-dose Eliquis
# Depression:
Continue home Remeron 15 mg at night, buspirone 10 mg twice daily, and venlafaxine 225 mg daily
DVT prophylaxis: Eliquis
CODE STATUS: Full code
Anticipated Discharge: 24 - 48 hours
Subjective/Interval History
-
Date of Service: November 15, 2024
Objective Data
-
Labs:
Laboratory Results
11/15/24
08:26
WBC 11.3 H
Hgb 10.1 L
Hct 31.2 L
Plt Count 359
Sodium 135
Potassium 4.5
Chloride 108 H
Carbon Dioxide 23
BUN 17
Creatinine 0.8
Glucose 131 H
Calcium 8.9
Total Bilirubin 0.2
AST 18
ALT 18
Alkaline Phosphatase 36 L
Vital Signs:
Vital Signs
Temp Pulse Resp BP Pulse Ox
36.6 C 86 18 148/72 92
11/15/24 07:00 11/15/24 08:58 11/15/24 07:00 11/15/24 08:58 11/15/24 07:00
I&O
11/14/24 11/15/24 11/16/24
06:59 06:59 06:59
Intake Total 480 / 480
Balance 480 / 480
Review of Systems
-
History Source: Patient
All other systems: Reviewed and negative
Physical Exam
-
General: Well Developed, Well Nourished, No Apparent Distress, Comfortable, Conversant and Appears Chronically Ill
HEENT: Normocephalic, Atraumatic and Hearing Impaired
Respiratory: Clear to Auscultation and Non Labored Respirations; Negative Accessory Resp Muscle Use
Cardiac: Regular Rhythm and S1/S2; Negative Murmur
GI: Soft, Nontender, Nondistended and Normal Bowel Sounds
Musculoskeletal: No Clubbing, No Cyanosis and No Edema
Skin: Warm
Neuro: Awake
Psych: Calm
Data Reviewed
-
Labs: Labs Reviewed by me
--- NOTE | 2024-11-15 12:06 | PN.CDI ---
CDI
- -
CDI:
Physician Documentation Request
Admit Date: 11/10/24 23:19
Dear Doctor Devan,
Please review the following and provide your response in the progress notes.
Clinical Indicators:
- Patient admit with diarrhea and floridalma
- 11/15 PN 'Confusion, likely from mild opiate withdrawal'
- 11/13 PN 'Patient intermittently appears confused...Suspect hospital associated delirium'
- per daughter 'reports her mother is typically oriented and not confused, patient is not currently at her baseline'
Please clarify in the Progress Notes which is the most likely etiology of the confusion.
Opioid induced delirium
Toxic metabolic encephalopathy
Baseline Dementia - indicate type, such as Alzheimer's, senile, vascular, Lewy body etc., and any associated behavioral disturbances (aggressive, combative or violent behavior) if present
Acute or subacute confusional state due to (specify known or suspected etiology)
Other (please specify)
Use of terms such as suspected, likely, concern for, or probable (associated with a specific diagnosis that is being evaluated, monitored, or treated as if it exists) are acceptable and can be coded in the inpatient setting, when documented at the
time of discharge.
Thank you,
Rolando Granado RN
CDI Specialist
Please use your independent medical judgment in providing your response.
[2024-11-15 12:14] LABS: Glucose - Point of Care 120 mg/dl (70-99)
[2024-11-15 13:19] VITALS: BP 94/53; BP 96/57; PULSE 60; O2SAT 93
[2024-11-15 13:24] VITALS: BP 94/53; BP 96/57; PULSE 63; PULSE 65
--- NOTE | 2024-11-15 13:57 | CM ---
human resources communications manager reviewed patient's chart and physical therapy are recommending skilled placement, options reviewed with patient and she has selected [facility] placement.
Plan; Skilled placement.
[2024-11-15 15:39] VITALS: BP 131/69
[2024-11-15 17:10] LABS: Glucose - Point of Care 163 mg/dl (70-99)
[2024-11-15] MEDS: NOVOLOG FLEXPEN-LOW RESISTANCE 1 UNITS SC (18:44)
[2024-11-15] MEDS: REMERON 15 MG PO (21:10)
[2024-11-15] MEDS: DESYREL 150 MG PO (21:10)
[2024-11-15 21:25] LABS: Glucose - Point of Care 139 mg/dl (70-99)
[2024-11-15 23:00] VITALS: BP 129/62
[2024-11-16 07:10] VITALS: BP 124/51
[2024-11-16 07:49] LABS: Hematocrit 30.6 % (37.0-47.0); Hemoglobin 10.0 g/dL (12.0-16.0); Mean Corp Hgb Conc. 32.7 g/dL (33.0-37.0); Mean Corpuscular Volume 88.7 fL (81.0-99.0); Platelet Count 360 10^3/uL (130-400); Red Cell Dist. Width 15.0 % (11.5-14.5)
[2024-11-16] MEDS: NOVOLOG FLEXPEN-LOW RESISTANCE SC ×3 (07:56→16:58)
[2024-11-16 07:57] LABS: Glucose - Point of Care 98 mg/dl (70-99)
[2024-11-16] MEDS: PERCOCET 5/325 1 TABLET PO ×3 (07:57→21:23)
[2024-11-16] MEDS: VISBIOME 1 CAP PO (07:57)
[2024-11-16] MEDS: CARDIZEM CD 300 MG PO (08:01)
[2024-11-16] MEDS: ZESTRIL 40 MG PO (08:02)
[2024-11-16] MEDS: ELIQUIS 2.5 MG PO ×2 (08:02→19:41)
[2024-11-16] MEDS: SINGULAIR 10 MG PO (08:03)
[2024-11-16] MEDS: MS CONTIN (EXTENDED RELEASE) 15 MG PO ×2 (08:11→19:41)
[2024-11-16] MEDS: BUSPAR 10 MG PO ×2 (08:11→19:41)
[2024-11-16] MEDS: EFFEXOR XR 225 MG PO (08:11)
[2024-11-16] MEDS: ACTOS 15 MG PO (08:11)
[2024-11-16] MEDS: DESENEX/MITRAZOL/ZEASORB 1 APPLIC TOPICAL ×2 (08:12→19:46)
[2024-11-16 08:33] LABS: Blood Urea Nitrogen 18 mg/dl (7-17); Calcium 9.1 mg/dl (8.4-10.2); Carbon Dioxide 24 mmol/L (22-30); Chloride 108 mmol/L (98-107); Estimated Creatinine Clearance 46 ml/min; Glucose 92 mg/dl (70-99); Sodium 135 mmol/L (135-145); eGFR > 60.00
[2024-11-16 08:42] LABS: Magnesium 1.6 mg/dl (1.6-2.3)
[2024-11-16 09:05] LABS: Potassium 4.7 mmol/L (3.5-5.1)
--- NOTE | 2024-11-16 09:45 | W.PN.HOSP.TC ---
Today's Communication/Plan
-
dispo planning to SNF
Assessment / Plan
Assessment / Plan
HPI: 79-year-old female with medical history of spinal stenosis (on chronic pain medications), hypertension, DVT on low-dose Eliquis, COPD/asthma, glaucoma, polymyositis, and NIDDM; who presented with nonbloody diarrhea and progressive weakness.
She was mildly hypotensive and found to have an HECTOR with a creatinine of 1.7. She was started on IV fluids and has been admitted for further evaluation and management.
A/P:
# Diarrhea, suspect home metformin S/E , resolved
held metformin while inpatient and symptoms have resolved
Stool culture negative, C. difficile/Norovirus negative
Started loperamide PRN
Avoid overuse of laxatives
PT/OT recommending SNF which is being arranged
# Confusion, likely from mild opiate withdrawal
# Chronic pain with opiate dependence
resumed ACCOUNTANT MANAGER Morphine ER, MS improved
follow-up outpatient neurology office for neuropsychiatric testing
# HECTOR, resolved. Suspect prerenal in the setting of hypovolemia due to diarrhea
Initial creatinine 1.7, resolved to 0.8 today
No longer requiring IV fluids
# Hypertension
Presenting hypotension now resolved
Resumed home lisinopril 40 mg daily
# Spinal stenosis, chronic back pain
Opiate dependent, will continue home dose of morphine sulfate
Additional Percocet as needed which is her home regimen
If using bowel regimen for constipation should have holding parameters for diarrhea
# NIDDM
Holding home metformin
Started pioglitazone
Additional sliding scale insulin as needed
Blood glucose currently well-controlled, continue Accu-Cheks
Hemoglobin A1c 6.5%
# History of DVT:
Continue home low-dose Eliquis
# Depression:
Continue home Remeron 15 mg at night, buspirone 10 mg twice daily, and venlafaxine 225 mg daily
DVT prophylaxis: Eliquis
CODE STATUS: Full code
DW CM
Anticipated Discharge: Within 24 hours
Subjective/Interval History
-
Date of Service: November 16, 2024
Objective Data
-
Labs:
Laboratory Results
11/16/24
07:05
WBC 11.5 H
Hgb 10.0 L
Hct 30.6 L
Plt Count 360
Sodium 135
Potassium 4.7
Chloride 108 H
Carbon Dioxide 24
BUN 18 H
Creatinine 0.8
Glucose 92
Calcium 9.1
Vital Signs:
Vital Signs
Temp Pulse Resp BP Pulse Ox
36.6 C 71 16 124/57 90
11/16/24 07:10 11/16/24 08:01 11/16/24 07:10 11/16/24 08:01 11/16/24 07:10
I&O
11/15/24 11/16/24 11/17/24
06:59 06:59 06:59
Intake Total 480 / 480 1919
Balance 480 / 480 1919
Review of Systems
-
History Source: Patient
All other systems: Reviewed and negative
Abdomen/GI: Denies Diarrhea (resolved )
Physical Exam
-
General: Well Developed, Well Nourished, No Apparent Distress, Comfortable, Conversant and Appears Chronically Ill
HEENT: Normocephalic, Atraumatic and Hearing Impaired
Respiratory: Clear to Auscultation and Non Labored Respirations; Negative Accessory Resp Muscle Use
Cardiac: Regular Rhythm and S1/S2; Negative Murmur
GI: Soft, Nontender, Nondistended and Normal Bowel Sounds
Musculoskeletal: No Clubbing, No Cyanosis and No Edema
Skin: Warm
Neuro: Awake
Psych: Calm
Data Reviewed
-
Labs: Labs Reviewed by me
--- NOTE | 2024-11-16 11:59 | CM ---
Addendum entered by Alexa Roebrts 11/16/24 15:47:
Patient seen bedside with daughter, explained CM has reached out to [facility] admissions several times, left another VM, awaiting response. Patient and daughter do not want to explore other SNF options until they hear from [facility] as patient has
been there in the past.
Original Note:
CM reviewed chart, referral placed to [facility], no response as of yet in [facility]. VM left for liaison, Eliana. Patient will require [employer] auth. CM will continue to follow for all discharge planning needs.
Plan; SNF pending acceptance, will require auth.
[2024-11-16 12:00] LABS: Glucose - Point of Care 129 mg/dl (70-99)
[2024-11-16 15:10] VITALS: BP 127/62
[2024-11-16 16:52] LABS: Glucose - Point of Care 128 mg/dl (70-99)
[2024-11-16] MEDS: XANAX 0.5 MG PO (19:44)
[2024-11-16 21:08] LABS: Glucose - Point of Care 163 mg/dl (70-99)
[2024-11-16] MEDS: DESYREL 150 MG PO (21:30)
[2024-11-16] MEDS: REMERON 15 MG PO (21:31)
[2024-11-16 23:00] VITALS: BP 127/64
[2024-11-17] MEDS: PERCOCET 5/325 1 TABLET PO ×4 (02:59→22:12)
[2024-11-17 07:10] VITALS: BP 139/80
[2024-11-17] MEDS: ZESTRIL 40 MG PO (07:33)
[2024-11-17] MEDS: MS CONTIN (EXTENDED RELEASE) 15 MG PO ×2 (07:34→20:06)
[2024-11-17] MEDS: EFFEXOR XR 225 MG PO (07:34)
[2024-11-17] MEDS: ACTOS 15 MG PO (07:34)
[2024-11-17] MEDS: BUSPAR 10 MG PO ×2 (07:34→20:06)
[2024-11-17] MEDS: ELIQUIS 2.5 MG PO ×2 (07:34→20:06)
[2024-11-17] MEDS: VISBIOME 1 CAP PO (07:34)
[2024-11-17] MEDS: DESENEX/MITRAZOL/ZEASORB 1 APPLIC TOPICAL ×2 (07:36→21:00)
[2024-11-17] MEDS: SINGULAIR 10 MG PO (07:36)
[2024-11-17] MEDS: CARDIZEM CD 300 MG PO (07:36)
[2024-11-17 07:50] LABS: Glucose - Point of Care 99 mg/dl (70-99)
[2024-11-17] MEDS: NOVOLOG FLEXPEN-LOW RESISTANCE SC ×2 (07:51→11:58)
[2024-11-17] MEDS: SENOKOT-S 1 TABLET PO ×2 (09:51→20:06)
--- NOTE | 2024-11-17 10:05 | W.PN.HOSP.TC ---
Today's Communication/Plan
-
dispo planning
Assessment / Plan
Assessment / Plan
HPI: 79-year-old female with medical history of spinal stenosis (on chronic pain medications), hypertension, DVT on low-dose Eliquis, COPD/asthma, glaucoma, polymyositis, and NIDDM; who presented with nonbloody diarrhea and progressive weakness.
She was mildly hypotensive and found to have an HECTOR with a creatinine of 1.7. She was started on IV fluids and has been admitted for further evaluation and management.
A/P:
# Diarrhea, suspect home metformin S/E , resolved
held metformin while inpatient and symptoms have resolved
Stool culture negative, C. difficile/Norovirus negative
Started loperamide PRN
Avoid overuse of laxatives, add back Senokot-S BID with now constipation
PT/OT recommending SNF which is being arranged by
# Confusion, likely from mild opiate withdrawal
# Chronic pain with opiate dependence
resumed FOREIGN EXCHANGE CLERK Morphine ER, MS improved
follow-up outpatient neurology office for neuropsychiatric testing
# HECTOR, resolved. Suspect prerenal in the setting of hypovolemia due to diarrhea
Initial creatinine 1.7, resolved to 0.8
No longer requiring IV fluids
# Hypertension
Presenting hypotension now resolved
Resumed home lisinopril 40 mg daily
# Spinal stenosis, chronic back pain
Opiate dependent, will continue home dose of morphine sulfate
Additional Percocet as needed which is her home regimen
If using bowel regimen for constipation should have holding parameters for diarrhea
# NIDDM
Holding home metformin
Started pioglitazone
Additional sliding scale insulin as needed
Blood glucose currently well-controlled, continue Accu-Cheks
Hemoglobin A1c 6.5%
# History of DVT:
Continue home low-dose Eliquis
# Depression:
Continue home Remeron 15 mg at night, buspirone 10 mg twice daily, and venlafaxine 225 mg daily
DVT prophylaxis: Eliquis
CODE STATUS: Full code
Anticipated Discharge: Within 24 hours
Subjective/Interval History
-
Date of Service: November 17, 2024
Objective Data
-
Vital Signs:
Vital Signs
Temp Pulse Resp BP Pulse Ox
36.4 C 105 20 139/80 98
11/17/24 07:10 11/17/24 07:10 11/17/24 07:10 11/17/24 07:10 11/17/24 07:10
I&O
11/16/24 11/17/24 11/18/24
06:59 06:59 06:59
Intake Total 1919 720 / 720
Balance 1919 720 / 720
Review of Systems
-
History Source: Patient
All other systems: Reviewed and negative
Abdomen/GI: Denies Diarrhea (resolved )
Physical Exam
-
General: Well Developed, Well Nourished, No Apparent Distress, Comfortable, Conversant and Appears Chronically Ill
HEENT: Normocephalic, Atraumatic and Hearing Impaired
Respiratory: Clear to Auscultation and Non Labored Respirations; Negative Accessory Resp Muscle Use
Cardiac: Regular Rhythm and S1/S2; Negative Murmur
GI: Soft, Nontender, Nondistended and Normal Bowel Sounds
Musculoskeletal: No Clubbing, No Cyanosis and No Edema
Skin: Warm
Neuro: Awake
Psych: Calm
Data Reviewed
-
Labs: Labs Reviewed by me
--- NOTE | 2024-11-17 10:45 | CM ---
Addendum entered by Alexa Roberts 11/17/24 11:06:
CM received call from daughter who spoke with patient, agreeable to referrals to [facility], and [facility]. [facility].
Original Note:
CM reviewed chart, spoke with Eliana liaison at [facility], reports no beds available at this time. CM met with patient bedside, patient prefers to return home with services rather than explore additional SNFS. Call to patients daughter, Yaya, aware
of no beds at [facility], patient is medically stable for d/c. CM reviewed local SNFS in [facility], provided with Medicare.gov to look at facility ratings. Daughter will speak with her sister and review facilities and call CM back with plan of
SNF vs home with services. Daughter reports patient lives with her and other daughter, also has caregivers two days a week from [facility], could look into possibly of increasing care if patient is not agreeable to SNF. CM will continue
to follow for all discharge planning needs.
Plan; awaiting family decision, SNF vs home with caregivers
[2024-11-17 11:51] LABS: Glucose - Point of Care 110 mg/dl (70-99)
[2024-11-17 15:20] VITALS: BP 156/72
[2024-11-17 15:55] LABS: Glucose - Point of Care 187 mg/dl (70-99)
[2024-11-17] MEDS: NOVOLOG FLEXPEN-LOW RESISTANCE 1 UNITS SC (16:30)
[2024-11-17] MEDS: DESYREL 150 MG PO (21:37)
[2024-11-17] MEDS: HYDROCORTISONE 1% CREAM 1 APPLIC TOPICAL (21:37)
[2024-11-17] MEDS: REMERON 15 MG PO (21:38)
[2024-11-17 21:40] LABS: Glucose - Point of Care 145 mg/dl (70-99)
[2024-11-17 23:06] VITALS: BP 151/76
[2024-11-18] MEDS: HYDROCORTISONE 1% CREAM 1 APPLIC TOPICAL ×2 (07:27→19:38)
[2024-11-18] MEDS: BUSPAR 10 MG PO ×2 (07:27→19:39)
[2024-11-18] MEDS: SINGULAIR 10 MG PO (07:27)
[2024-11-18] MEDS: ELIQUIS 2.5 MG PO ×2 (07:27→19:39)
[2024-11-18] MEDS: CARDIZEM CD 300 MG PO (07:27)
[2024-11-18] MEDS: ACTOS 15 MG PO (07:28)
[2024-11-18] MEDS: EFFEXOR XR 225 MG PO (07:28)
[2024-11-18] MEDS: ZESTRIL 40 MG PO (07:28)
[2024-11-18] MEDS: VISBIOME 1 CAP PO (07:28)
[2024-11-18] MEDS: MS CONTIN (EXTENDED RELEASE) 15 MG PO ×2 (07:28→19:39)
[2024-11-18] MEDS: SENOKOT-S 1 TABLET PO ×2 (07:28→19:39)
[2024-11-18 08:01] VITALS: BP 118/59
[2024-11-18] MEDS: DESENEX/MITRAZOL/ZEASORB 1 APPLIC TOPICAL ×2 (08:32→19:38)
[2024-11-18 08:35] LABS: Glucose - Point of Care 108 mg/dl (70-99)
[2024-11-18] MEDS: NOVOLOG FLEXPEN-LOW RESISTANCE SC ×3 (08:35→18:15)
[2024-11-18] MEDS: PERCOCET 5/325 1 TABLET PO ×2 (08:58→16:07)
[2024-11-18 09:14] VITALS: BP 113/60; PULSE 76; O2SAT 93
--- NOTE | 2024-11-18 09:18 | W.PN.HOSP.TC ---
Today's Communication/Plan
-
dispo planning to SNF
Assessment / Plan
Assessment / Plan
HPI: 79-year-old female with medical history of spinal stenosis (on chronic pain medications), hypertension, DVT on low-dose Eliquis, COPD/asthma, glaucoma, polymyositis, and NIDDM; who presented with nonbloody diarrhea and progressive weakness.
She was mildly hypotensive and found to have an HECTOR with a creatinine of 1.7. She was started on IV fluids and has been admitted for further evaluation and management.
A/P:
# Diarrhea, suspect home metformin S/E , resolved
held metformin while inpatient and symptoms have resolved
Stool culture negative, C. difficile/Norovirus negative
Started loperamide PRN
Avoid overuse of laxatives, added back Senokot-S BID with now constipation
PT/OT recommending SNF which is being arranged by
# Confusion, likely from mild opiate withdrawal, resolved
# Chronic pain with opiate dependence
resumed CREAM MAKER Morphine ER, MS improved , awake and conversant
follow-up outpatient neurology office for neuropsychiatric testing
# HECTOR, resolved. Suspect prerenal in the setting of hypovolemia due to diarrhea
Initial creatinine 1.7, resolved to 0.8
No longer requiring IV fluids
# Hypertension
Presenting hypotension now resolved
Resumed home lisinopril 40 mg daily
# Spinal stenosis, chronic back pain
Opiate dependent, will continue home dose of morphine sulfate
Additional Percocet as needed which is her home regimen
If using bowel regimen for constipation should have holding parameters for diarrhea
# NIDDM
Holding home metformin
Started pioglitazone
Additional sliding scale insulin as needed
Blood glucose currently well-controlled, continue Accu-Cheks
Hemoglobin A1c 6.5%
# History of DVT:
Continue home low-dose Eliquis
# Depression:
Continue home Remeron 15 mg at night, buspirone 10 mg twice daily, and venlafaxine 225 mg daily
DVT prophylaxis: Eliquis
CODE STATUS: Full code
Anticipated Discharge: Within 24 hours
Subjective/Interval History
-
Date of Service: November 18, 2024
Objective Data
-
Vital Signs:
Vital Signs
Temp Pulse Resp BP Pulse Ox
36.5 C 77 16 118/59 90
11/18/24 08:01 11/18/24 08:01 11/18/24 08:01 11/18/24 08:01 11/18/24 08:01
I&O
11/17/24 11/18/24 11/19/24
06:59 06:59 06:59
Intake Total 720 / 720 1440 / 1440
Balance 720 / 720 1440 / 1440
Review of Systems
-
History Source: Patient
All other systems: Reviewed and negative
Abdomen/GI: Denies Diarrhea (resolved )
Physical Exam
-
General: Well Developed, Well Nourished, No Apparent Distress, Comfortable, Conversant and Appears Chronically Ill
HEENT: Normocephalic, Atraumatic and Hearing Impaired
Respiratory: Clear to Auscultation and Non Labored Respirations; Negative Accessory Resp Muscle Use
Cardiac: Regular Rhythm and S1/S2; Negative Murmur
GI: Soft, Nontender, Nondistended and Normal Bowel Sounds
Musculoskeletal: No Clubbing, No Cyanosis and No Edema
Skin: Warm
Neuro: Awake
Psych: Calm
[2024-11-18 09:20] VITALS: BP 113/60; PULSE 76; O2SAT 91
[2024-11-18] MEDS: XANAX 0.5 MG PO ×2 (09:33→21:38)
[2024-11-18 12:44] LABS: Glucose - Point of Care 145 mg/dl (70-99)
--- NOTE | 2024-11-18 16:01 | CM ---
CM left VM for liaison at [facility], patients daughter also left VM with [facility] and [facility] regarding accepting patient. CM spoke with liaison at [facility], no beds.
Call to [facility]- inquiring about bed availability, left VM. Liaison return call, reports liaison has been out a few days and was told data integration developer team left VM for CM requesting clinicals be faxed. CM discussed no one called CM to request
clinicals, will fax to [phone]. CM followed up with liaison at [facility] ([facility]) after clinicals sent and no response from facility, liaison reports fax is not working and now provided CM with additional fax [phone]. CM
placed multiple calls to liaison to see if they can accept patient, no response from [facility] ([phone]). CM spoke with patients Alysa garcia [phone] discussed [facility] able to offer patient a bed tomorrow, patient wants to wait to
hear back from [facility] before making decision. Update to Ros at [facility], able to offer patient a bed tomorrow
Plan[facility] will need [facility]
Dr Morgan [phone]
[2024-11-18 16:09] VITALS: BP 133/68
[2024-11-18 18:13] LABS: Glucose - Point of Care 110 mg/dl (70-99)
[2024-11-18] MEDS: DESYREL 150 MG PO (21:33)
[2024-11-18] MEDS: REMERON 15 MG PO (21:33)
[2024-11-18 22:07] LABS: Glucose - Point of Care 179 mg/dl (70-99)
[2024-11-18 23:46] VITALS: BP 122/53
[2024-11-19 07:00] VITALS: BP 144/66
[2024-11-19 07:38] LABS: Glucose - Point of Care 119 mg/dl (70-99)
[2024-11-19] MEDS: ELIQUIS 2.5 MG PO ×2 (07:56→19:04)
[2024-11-19] MEDS: ZESTRIL 40 MG PO (07:56)
[2024-11-19] MEDS: CARDIZEM CD 300 MG PO (07:57)
[2024-11-19] MEDS: VISBIOME 1 CAP PO (07:57)
[2024-11-19] MEDS: SENOKOT-S 1 TABLET PO ×2 (07:57→19:05)
[2024-11-19] MEDS: BUSPAR 10 MG PO ×2 (07:57→19:05)
[2024-11-19] MEDS: EFFEXOR XR 225 MG PO (07:57)
[2024-11-19] MEDS: MS CONTIN (EXTENDED RELEASE) 15 MG PO ×2 (07:58→19:05)
[2024-11-19] MEDS: DESENEX/MITRAZOL/ZEASORB 1 APPLIC TOPICAL ×2 (07:58→19:05)
[2024-11-19] MEDS: ACTOS 15 MG PO (07:58)
[2024-11-19] MEDS: SINGULAIR 10 MG PO (07:58)
[2024-11-19] MEDS: HYDROCORTISONE 1% CREAM 1 APPLIC TOPICAL ×2 (07:59→19:06)
[2024-11-19] MEDS: NOVOLOG FLEXPEN-LOW RESISTANCE SC (07:59)
--- NOTE | 2024-11-19 09:36 | W.PN.HOSP.TC ---
Today's Communication/Plan
-
pending SNF
Assessment / Plan
Assessment / Plan
HPI: 79-year-old female with medical history of spinal stenosis (on chronic pain medications), hypertension, DVT on low-dose Eliquis, COPD/asthma, glaucoma, polymyositis, and NIDDM; who presented with nonbloody diarrhea and progressive weakness.
She was mildly hypotensive and found to have an HECTOR with a creatinine of 1.7. She was started on IV fluids and has been admitted for further evaluation and management.
A/P:
# Diarrhea, suspect home metformin S/E , resolved
held metformin while inpatient and symptoms have resolved
Stool culture negative, C. difficile/Norovirus negative
Started loperamide PRN
Avoid overuse of laxatives, added back Senokot-S BID with now constipation
PT/OT recommending SNF which is being arranged by
# Confusion, likely from mild opiate withdrawal, resolved
# Chronic pain with opiate dependence
resumed [employer] Morphine ER, MS improved , awake and conversant
follow-up outpatient neurology office for neuropsychiatric testing
# HECTOR, resolved. Suspect prerenal in the setting of hypovolemia due to diarrhea
Initial creatinine 1.7, resolved to 0.8
No longer requiring IV fluids
# Hypertension
Presenting hypotension now resolved
Resumed home lisinopril 40 mg daily
# Spinal stenosis, chronic back pain
Opiate dependent, will continue home dose of morphine sulfate
Additional Percocet as needed which is her home regimen
If using bowel regimen for constipation should have holding parameters for diarrhea
# NIDDM
Holding home metformin
Started pioglitazone
Additional sliding scale insulin as needed
Blood glucose currently well-controlled, continue Accu-Cheks
Hemoglobin A1c 6.5%
# History of DVT:
Continue home low-dose Eliquis
# Depression:
Continue home Remeron 15 mg at night, buspirone 10 mg twice daily, and venlafaxine 225 mg daily
DVT prophylaxis: Eliquis
CODE STATUS: Full code
Anticipated Discharge: Within 24 hours
Subjective/Interval History
-
Date of Service: November 19, 2024
Objective Data
-
Vital Signs:
Vital Signs
Temp Pulse Resp BP Pulse Ox
36.9 C 87 20 144/66 96
11/19/24 07:00 11/19/24 07:00 11/19/24 07:00 11/19/24 07:00 11/19/24 07:00
I&O
11/18/24 11/19/24 11/20/24
06:59 06:59 06:59
Intake Total 1440 / 1440 720 / 720
Balance 1440 / 1440 720 / 720
Review of Systems
-
History Source: Patient
All other systems: Reviewed and negative
Abdomen/GI: Denies Diarrhea (resolved )
Physical Exam
-
General: Well Developed, Well Nourished, No Apparent Distress, Comfortable, Conversant and Appears Chronically Ill
HEENT: Normocephalic, Atraumatic and Hearing Impaired
Respiratory: Clear to Auscultation and Non Labored Respirations; Negative Accessory Resp Muscle Use
Cardiac: Regular Rhythm and S1/S2; Negative Murmur
GI: Soft, Nontender, Nondistended and Normal Bowel Sounds
Musculoskeletal: No Clubbing, No Cyanosis and No Edema
Skin: Warm
Neuro: Awake
Psych: Calm and Intact Judgement/Insight
--- NOTE | 2024-11-19 10:12 | CM ---
Addendum entered by ANNAMARIE Schmitt 11/19/24 16:50:
updated [facility] that auth is pending with [employer] now.
Addendum entered by USHA SchmittW 11/19/24 16:47:
with new information on correct ID for patient was able with help of another CM to put into availity to request auth for transfer to [facility] on thursday11/20/24. Request ID number from [employer] : [id number].
Addendum entered by ANNAMARIE Schmitt 11/19/24 16:26:
numerous attempts made to call and start [employer] auth but system keeps saying they do not recognize her ID of [id number] with her 41. Dgtr [facility] [employer] and got correct Patient ID is [id number]. Name on Sue Sexton.
Addendum entered by ANNAMARIE Schmitt 11/19/24 16:03:
attempted to do precert using availity but her name not in system. Left VM for [facility] to call me to see if patient has another name her insurance is in. unable to start precert with [employer] on phone because patient ID Dh has is not one they recognize.
Addendum entered by ANNAMARIE Schmitt 11/19/24 13:52:
spoke to [facility] again, no call from [facility] agreed to transfer to [facility] if bed available.Spoke to [facility] and there is a bed for tomorrow. WIll need auth from [employer].
Original Note:
Spoke to [facility]. [facility]. dg said plan was if no response from [facility] by 1300 today to go with bed at [facility]. CM explained will need to get auth for snf once snf is
identified.
CM sent note in referral in [facility] for [facility] asking for answer by 1300 today on bed and acceptance. IF no bed at [facility] cm will call [facility] to ask when they have bed and start auth with [employer] for snf.
[2024-11-19] MEDS: PERCOCET 5/325 1 TABLET PO ×2 (10:35→17:08)
[2024-11-19 11:58] LABS: Glucose - Point of Care 193 mg/dl (70-99)
[2024-11-19] MEDS: NOVOLOG FLEXPEN-LOW RESISTANCE 1 UNITS SC ×2 (13:01→17:08)
[2024-11-19 15:00] VITALS: BP 124/56
[2024-11-19 16:25] LABS: Glucose - Point of Care 170 mg/dl (70-99)
[2024-11-19] MEDS: REMERON 15 MG PO (21:02)
[2024-11-19] MEDS: DESYREL 150 MG PO (21:02)
[2024-11-19 21:32] LABS: Glucose - Point of Care 112 mg/dl (70-99)
[2024-11-19 23:35] VITALS: BP 131/62
[2024-11-20 07:40] VITALS: BP 164/85
[2024-11-20 07:49] LABS: Glucose - Point of Care 103 mg/dl (70-99)
[2024-11-20] MEDS: SINGULAIR 10 MG PO (09:01)
[2024-11-20] MEDS: SENOKOT-S 1 TABLET PO (09:01)
[2024-11-20] MEDS: CARDIZEM CD 300 MG PO (09:01)
[2024-11-20] MEDS: ACTOS 15 MG PO (09:02)
[2024-11-20] MEDS: PERCOCET 5/325 1 TABLET PO ×2 (09:08→14:34)
[2024-11-20] MEDS: VISBIOME 1 CAP PO (09:10)
[2024-11-20] MEDS: EFFEXOR XR 225 MG PO (09:10)
[2024-11-20] MEDS: ZESTRIL 40 MG PO (09:11)
[2024-11-20] MEDS: MS CONTIN (EXTENDED RELEASE) 15 MG PO (09:12)
[2024-11-20] MEDS: BUSPAR 10 MG PO (09:12)
[2024-11-20] MEDS: DESENEX/MITRAZOL/ZEASORB 1 APPLIC TOPICAL (09:13)
[2024-11-20] MEDS: ELIQUIS 2.5 MG PO (09:13)
[2024-11-20] MEDS: HYDROCORTISONE 1% CREAM 1 APPLIC TOPICAL (09:14)
[2024-11-20] MEDS: NOVOLOG FLEXPEN-LOW RESISTANCE SC (09:14)
--- NOTE | 2024-11-20 09:15 | W.PN.HOSP.TC ---
Today's Communication/Plan
-
dispo planning to SNF
Assessment / Plan
Assessment / Plan
HPI: 79-year-old female with medical history of spinal stenosis (on chronic pain medications), hypertension, DVT on low-dose Eliquis, COPD/asthma, glaucoma, polymyositis, and NIDDM; who presented with nonbloody diarrhea and progressive weakness.
She was mildly hypotensive and found to have an HECTOR with a creatinine of 1.7. She was started on IV fluids and has been admitted for further evaluation and management.
A/P:
# Diarrhea, suspect home metformin S/E , resolved
held metformin while inpatient and symptoms have resolved
Stool culture negative, C. difficile/Norovirus negative
Started loperamide PRN
Avoid overuse of laxatives, added back Senokot-S BID with now constipation
PT/OT recommending SNF which is being arranged by
# Confusion, likely from mild opiate withdrawal, resolved
# Chronic pain with opiate dependence
resumed SPE[employer]ER Morphine ER, MS improved , awake and conversant
follow-up outpatient neurology office for neuropsychiatric testing
# HECTOR, resolved. Suspect prerenal in the setting of hypovolemia due to diarrhea
Initial creatinine 1.7, resolved to 0.8
No longer requiring IV fluids
# Hypertension
Presenting hypotension now resolved
Resumed home lisinopril 40 mg daily
# Spinal stenosis, chronic back pain
Opiate dependent, will continue home dose of morphine sulfate
Additional Percocet as needed which is her home regimen
If using bowel regimen for constipation should have holding parameters for diarrhea
# NIDDM
Holding home metformin
Started pioglitazone
Additional sliding scale insulin as needed
Blood glucose currently well-controlled, continue Accu-Cheks
Hemoglobin A1c 6.5%
# History of DVT:
Continue home low-dose Eliquis
# Depression:
Continue home Remeron 15 mg at night, buspirone 10 mg twice daily, and venlafaxine 225 mg daily
DVT prophylaxis: Eliquis
CODE STATUS: Full code
Anticipated Discharge: Within 24 hours
Subjective/Interval History
-
Date of Service: November 20, 2024
Objective Data
-
Vital Signs:
Vital Signs
Temp Pulse Resp BP Pulse Ox
36.9 C 77 20 164/85 93
11/20/24 07:40 11/20/24 07:40 11/20/24 07:40 11/20/24 07:40 11/20/24 07:40
I&O
11/19/24 11/20/24 11/21/24
06:59 06:59 06:59
Intake Total 720 / 720 840 / 840
Balance 720 / 720 840 / 840
Review of Systems
-
History Source: Patient
All other systems: Reviewed and negative
Abdomen/GI: Denies Diarrhea (resolved )
Physical Exam
-
General: Well Developed, Well Nourished, No Apparent Distress, Comfortable, Conversant and Appears Chronically Ill
HEENT: Normocephalic, Atraumatic and Hearing Impaired
Respiratory: Clear to Auscultation and Non Labored Respirations; Negative Accessory Resp Muscle Use
Cardiac: Regular Rhythm and S1/S2; Negative Murmur
GI: Soft, Nontender, Nondistended and Normal Bowel Sounds
Musculoskeletal: No Clubbing, No Cyanosis and No Edema
Skin: Warm
Neuro: Awake
Psych: Calm and Intact Judgement/Insight
--- NOTE | 2024-11-20 09:45 | CM ---
Kennedy Garcia approved #[id number] SOC 11/20, NRD 11/26
DC to [facility]
CM spoke with [facility]- they are able to accept pt today.
RN to call report to [facility] @ [phone].
--- NOTE | 2024-11-20 10:55 | W.DCSUMMARY ---
Discharge Summary
Discharge Data
Date of Admission: 11/10/24
Date of Discharge: 11/20/24
Total time spent discharging patient (in min): 40
-
Pending Results: No
Hospital Course
Principal Diagnosis:
Diarrhea, due to metformin side effect, resolved
Confusion, due to opiate withdrawal, resolved
Prerenal HECTOR in the setting of hypovolemia due to diarrhea, resolved.
Chronic Diagnoses:�
Hypertension, on lisinopril 40 mg daily
Spinal stenosis, chronic back pain
Chronic pain with opiate dependence
Opiate dependent, continue home dose morphine sulfate
NIDDM. Stopped metformin, started pioglitazone
History of DVT, on low-dose Eliquis
Depression, on Remeron 15 mg at night, buspirone 10 mg twice daily, and venlafaxine 225 mg daily
Consultations:�
None
Procedures:�
None
Clinical course:�
This is a 79-year-old female with past medical history as stated above, who presented with nonbloody diarrhea and progressive weakness.
Problem 1:
Diarrhea, due to metformin side effect, resolved after stopping metformin.
Her stool culture, C. difficile/Norovirus were negative.
She was discharged to SNF per PT OT recommendation.
Problem 2:
Confusion, due to opiate withdrawal, resolved after resuming [employer] MANAGER Morphine ER.
Her mental status improved and returned to baseline which is awake and conversant.
She can follow-up neurology outpatient for neuropsychiatric testing.
Problem 3:
Prerenal HECTOR in the setting of hypovolemia due to diarrhea, resolved.
Her admission creatinine was at 1.7, and trended down to 0.8 following IV fluid.
As for the rest of her medical problems, they were stable during her hospital stay.
Discharge Plan
-
Patient Disposition: Assisted/SNF
Discharge Diagnosis/Procedures: # Diarrhea, suspect metformin side effect, resolved after discontinuation of metformin
Condition: Fair
Diet: As tolerated and Diabetic, Carb Controlled
Activity: As tolerated
Driving Restrictions: As prior to admission
Referrals:
Carissa Barreto MD [Family Provider, [facility]] - in less than 1 week
Additional Discharge Medication Instructions: Stop Metformin and continue with pioglitazone instead
Prescriptions:
New
sennosides-docusate sodium [Senna Plus] 8.6-50 mg Tablet
1 tab PO BID PRN (Reason: Constipation) Qty: 20 0RF
pioglitazone 15 mg Tablet
15 mg PO DAILY Qty: 30 0RF
Continued
diltiazem HCl [Cardizem CD] 240 MG capsule,extended release 24hr
300 mg PO DAILY
fenofibrate nanocrystallized 145 MG tablet
145 mg PO DAILY
buspirone 10 mg Tablet
10 mg PO BID
Eliquis 2.5 mg Tablet
2.5 mg PO BID
montelukast [Singulair] 10 mg Tablet
10 mg PO DAILY
mirtazapine 15 mg Tablet
15 mg PO HS
lisinopril [Zestril] 40 mg Tablet
40 mg PO DAILY
venlafaxine [Effexor XR] 150 mg Capsule,Extended Release 24hr
225 mg PO DAILY
oxycodone-acetaminophen [Percocet] 10-325 mg Tablet
1 tab PO Q4H PRN (Reason: severe pain) Qty: 5 0RF
morphine 15 mg tablet extended release
15 mg PO BID Qty: 4 0RF
Changed
trazodone 150 mg Tablet
150 mg PO HS Qty: 7 0RF
Discontinued
metformin 500 mg Tablet
500 mg PO DAILY
Discharge Orders:
Discharge Patient (As Directed); Ordered 11/20/24
Ordered By: Shayy Hartman
Discharge Date and Time
Print Language: KYRGYZ
[2024-11-20] MEDS: XANAX 0.5 MG PO (10:59)
[2024-11-20 11:15] VITALS: BP 150/79
[2024-11-20 11:30] LABS: Glucose - Point of Care 159 mg/dl (70-99)
[2024-11-20] MEDS: NOVOLOG FLEXPEN-LOW RESISTANCE 1 UNITS SC (12:29)
== END 2024-11-20 15:00 | DRG 682 ==
LOC: 4 WEST ACU 23:19
PROVIDERS: Emergency Medicine; Internal Medicine; ADMITTING PHYSICIAN Student in an Organized Health Care Education/Training Program; ATTENDING PHYSICIAN Internal Medicine; EMERGENCY PHYSICIAN Student in an Organized Health Care Education/Training Program; FAMILY PHYSICIAN Family Medicine
DX: N17.9 Acute kidney failure, unspecified (principal); G93.41 Metabolic encephalopathy; F11.23 Opioid dependence with withdrawal; K52.1 Toxic gastroenteritis and colitis; E86.1 Hypovolemia; T40.605A Adverse effect of unspecified narcotics, initial encounter; T38.3X5A Adverse effect of insulin and oral hypoglycemic [antidiabetic] drugs, initial encounter; E86.0 Dehydration; Z79.899 Other long term (current) drug therapy; I10 Essential (primary) hypertension; G89.29 Other chronic pain; M48.00 Spinal stenosis, site unspecified; E11.9 Type 2 diabetes mellitus without complications; Z79.84 Long term (current) use of oral hypoglycemic drugs; Z79.01 Long term (current) use of anticoagulants; Z86.718 Personal history of other venous thrombosis and embolism
CPT/HCPCS: 51701; 80048; 80053; 81003; 81015; 82248; 82962; 83036; 83735; 84100; 84443; 85025; 85027; 87045; 87046; 87070; 87086; 87324; 87427; 87449; 87798; 96360; 97116; 97163; 97167; 97530; 97535; 99284

== ENCOUNTER 2024-12-15 03:19 | Observation (INO) | payer OTHER, SELFPAY ==
[2024-12-14 19:49] VITALS: BP 162/94
[2024-12-14 20:11] LABS: Hematocrit 40.1 % (37.0-47.0); Hemoglobin 13.9 g/dL (12.0-16.0); Mean Corp Hgb Conc. 34.7 g/dL (33.0-37.0); Mean Corpuscular Volume 83.5 fL (81.0-99.0); Nucleated Red Blood Cells % 0 %; Platelet Count 494 10^3/uL (130-400); Red Cell Dist. Width 13.8 % (11.5-14.5)
[2024-12-14 20:23] LABS: ALT (SGPT) 18 U/L (0-35); AST (SGOT) 27 U/L (14-36); Albumin 4.5 g/dl (3.5-5.0); Alkaline Phosphatase 46 U/L (38-126); Blood Urea Nitrogen 22 mg/dl (7-17); Calcium 10.4 mg/dl (8.4-10.2); Carbon Dioxide 18 mmol/L (22-30); Chloride 103 mmol/L (98-107); Glucose 113 mg/dl (70-99); Potassium 3.8 mmol/L (3.5-5.1); Sodium 133 mmol/L (135-145); Total Protein 7.2 g/dl (6.3-8.2); eGFR > 60.00
[2024-12-14 20:39] LABS: Troponin I < 0.012 ng/ml
[2024-12-14 23:13] VITALS: BP 156/87
[2024-12-14 23:18] VITALS: BMI 23.9
[2024-12-14] MEDS: NSS 500 IV (23:39)
[2024-12-15] VITALS (8 sets, daily range): BP systolic 121–159; BP diastolic 56–78; PULSE 72–83; O2SAT 95; BMI 22.3
[2024-12-15 00:08] LABS: APTT 33.0 Sec (23.4-35.0)
[2024-12-15 00:16] LABS: COVID-19 Antigen Negative (Negative)
[2024-12-15 00:38] LABS: Urine Character Clear (Clear)
--- NOTE | 2024-12-15 00:45 | ED.GENMED ---
History of Present Illness
General
Chief Complaint: Blood Pressure Problem
Source: patient and family
Exam Limitations: none
Time Seen by Provider: 12/14/24 23:16
History of Present Illness
History of Present Illness:
Patient presents with 2 days of not feeling well. Vague in nature. Some vague abdominal pain apparently yesterday and today. Gleason like her heart was racing earlier today. General myalgias. No diarrhea no chest pain no shortness of breath. No
urinary symptoms.
Past History
Past History
ED Past Medical History: HTN, NIDDM, Psychiatric (Anxiety) and Other (DVT)
ED Past Surgical History: Cholecystectomy, and Orthopedic
Social History
Tobacco: Non-smoker
Alcohol: None
Review of Systems
Review of Systems
All Other Systems: Not applicable
Constitutional: Denies fever
Respiratory: Denies cough
ABD/GI: Denies diarrhea
Phy Exam
Physical Exam
Physical Exam:
GENERAL: Alert and oriented in no apparent distress. Elderly and frail
EYE: Orbits normal.
NECK: Supple, no significant adenopathy.
ENT: Pharynx without erythema
CARDIAC: Regular rate and rhythm without any obvious murmurs.
LUNGS: Clear breath sounds,normal
ABDOMEN: Soft, mild vague tenderness left upper and left lower quadrant. No rebound or guarding no mass or hernia
NEUROLOGICAL: Alert and oriented , grossly non-focal
SKIN: Warm and dry, no rash or lesion, no discoloration, skin intact.
MUSCULOSKELETAL: No edema,no deformity.Good color
PSYCH: Normal and appropriate interaction.
Course
Orders/Labs/Results
Orders:
Orders
12/14/24 19:49
ECG [Electrocardiogram (*1)] Urgent
Reason for Study: Tachycardia
EKG- Treatment ONCE
12/14/24 19:52
CT Head W/o Iv Contrast Urgent
Comment:
Reason For Exam: blood pressure
12/14/24 20:02
Complete Blood Count/With Diff Urgent
Comprehensive Metabolic Panel Urgent
Troponin I Urgent
12/14/24 23:32
Cardiac Monitoring- Treatment ONCE
IV Insert/Care/Rem.- Treatment PRN
Straight cath- Treatment ONCE
PTT Urgent
Urinalysis Reflex To Culture Urgent
Date Specimen was Collected: 12/15/24
Time Specimen was Collected: 00:30
0.9% Sodium Chloride 500 ml [Nss] 500 ml IV BOLUS
12/14/24 23:33
Electrocardiogram (*1) Stat
Reason for Study: Abdominal Pain
CT Abd/Pel (IV only)-DH only Urgent
Comment:
Reason For Exam: Vague abdominal pain/leukocytosis
EKG- Treatment ONCE
12/14/24 23:34
Blood Culture Urgent
[place]OUIS Source: Blood/Venous
Specimen Description:
Blood Culture Urgent
[place]OUIS Source: Blood/Venous
Specimen Description:
Date Specimen was Collected: 12/14/24
Time Specimen was Collected: 23:30
12/14/24 23:36
COVID-19 Antigen Urgent
Source: Nasal Swab
Influenza A+B Rapid Molecular Urgent
[place]OUIS Source: Nasal Swab
Specimen Description:
12/15/24 00:02
CR Chest - 2 Views Urgent
Reason For Exam: Leukocytosis/weakness
12/15/24 00:31
Urine Microscopic Reflex Cult Urgent
12/15/24 02:10
Admit/Transfer Patient As Directed
Co-Sign Provider:
Level of Care: Observation services
Assign to:: Medical/Surgical
Physician / Group: Ulysses
Diagnosis: elevated bp
PRN Pain Medication Management As Directed
May give lesser potent ordered pain med per pt: Yes
preference::
Protocol:: Medication orders for pain may be administered in a
manner that supports deferring to patient preference
when the pt is:
- Requesting an ordered lesser potent pain medication.
Least to most potent pain medications are defined
as: acetaminophen < NSAID < tramadol < opioids
(morphine, oxycodone, hydromorphone).
- Requesting a lesser dose of the same medication IF
ORDERED.
- Requesting a less intrusive route of administration
if both routes are prescribed by the provider (PO <
IV).
12/15/24 02:14
Code Status As Directed
Resuscitation Status: Full Code
Abnormal Lab Results
12/14/24 12/15/24
20:02 00:31
WBC 16.9 H 10^3/uL
(4.8-10.8)
Plt Count 494 H 10^3/uL
(130-400)
Abs Immat Gran (auto) 0.1 H 10^3/uL
(0-0.05)
Absolute Neuts (auto) 11.1 H 10^3/uL
(1.4-6.5)
Absolute Lymphs (auto) 4.1 H 10^3/uL
(1.2-3.4)
Absolute Monos (auto) 1.5 H 10^3/uL
(0.1-0.6)
Immature Gran % 0.6 H %
(0-0.5)
Sodium 133 L mmol/L
(135-145)
Carbon Dioxide 18 L mmol/L
(22-30)
BUN 22 H mg/dl
(7-17)
Glucose 113 H mg/dl
(70-99)
Calcium 10.4 H mg/dl
(8.4-10.2)
Ur Occult Blood Reflex 1+ A
(Negative)
Urine Albumin (Reflex) 4+ A
(Neg - Trace)
10/01/25 20:02
12/14/24 20:02
Vital Signs
Initial and Last Documented VS:
Initial Vital Signs
Temp Pulse Resp BP Pulse Ox
98.5 F 104 20 162/94 97
12/14/24 19:49 12/14/24 19:49 12/14/24 19:49 12/14/24 19:49 12/14/24 19:49
Last Documented Vital Signs
Temp Pulse Resp BP Pulse Ox
98.5 F 104 20 156/87 97
12/14/24 19:49 12/14/24 19:49 12/14/24 19:49 12/14/24 23:13 12/15/24 00:47
MDM/Problems Addressed
Differential Diagnosis Includes:
With very vague symptoms. Nothing clear on exam to explain her symptoms. Some vague abdominal discomfort. Highly doubt a primary cardiac issue. To consider UTI, intra-abdominal process, viral syndrome. Moderate leukocytosis. Workup in progress
*Radiology
Radiology exam reviewed: preliminary read by ED provider (Likely rotational x-ray) and radiology read reviewed (No acute findings. Reflux into the distal esophagus. Cholecystectomy. Multiple incidental findings chronic lumbar fractures renal
cysts. Hemangioma in the spleen degenerative changes)
*Pulse Oximetry
SaO2: 97
Oxygen Mode of Delivery: Room air
Patient hypoxic: no
*EKG
Interpreted by ED Provider?: Yes
Interpretation: abnormal
Comparison EKG: changes noted
Heart Rate: 102
Rate: tachycardiac
Rhythm: sinus
[place]: normal axis
Interval: normal interval
QRS Pattern: left vent hypertrophy
Ischemia: non-specific ST changes
*Assistant Professor Of Music Interpretation
Rate: tachycardiac
Interpretation: abnormal
Heart Rate: 101
*Critical Care Note
Total Time (30-74mins, 75-104mins- exclusive of procedures): Not Applicable
Data Reviewed
Review of Other/Old Records Reveals: Labs, Records and Testing
Update Note
Update Note:
No obvious explanation for patient's symptoms. Possibly viral. With ongoing leukocytosis weakness and mild confusion for the family will be admitted for further care
ED Attending Note
-
Portions of this chart may have been created with voice recognition software.� Occasional wrong word or��sound alike� substitutions may have occurred due to the inherent limitations of voice recognition software.
Discharge Plan
Departure
Patient Disposition: Admit
Date of Disposition: 12/15/24
Time of Disposition: 01:50
Presentation/result/management discussed w/ accepting MD/DO: Hospitalist
Discharge Problem:
Fatigue weakness confusion, Leukocytosis
Prescriptions:
No Action
diltiazem HCl [Cardizem CD] 240 MG capsule,extended release 24hr
300 mg PO DAILY
fenofibrate nanocrystallized 145 MG tablet
145 mg PO DAILY
buspirone 10 mg Tablet
10 mg PO BID
Eliquis 2.5 mg Tablet
2.5 mg PO BID
montelukast [Singulair] 10 mg Tablet
10 mg PO DAILY
mirtazapine 15 mg Tablet
15 mg PO HS
lisinopril [Zestril] 40 mg Tablet
40 mg PO DAILY
sennosides-docusate sodium [Senna Plus] 8.6-50 mg Tablet
1 tab PO BID PRN (Reason: Constipation) Qty: 20 0RF
oxycodone-acetaminophen [Percocet] 10-325 mg Tablet
1 tab PO Q4H PRN (Reason: severe pain) Qty: 5 0RF
morphine 15 mg tablet extended release
15 mg PO BID Qty: 4 0RF
trazodone 150 mg Tablet
150 mg PO HS Qty: 7 0RF
venlafaxine 225 mg tablet extended release 24hr
225 mg PO DAILY Qty: 30 0RF
metformin 500 mg Tablet
500 mg PO DAILY
Referrals:
Carissa Barreto MD [Family Provider, Family Practice]
Interventions
Interventions:
*Risk Screen - Suicide Last Done: 12/14/24 23:20
*General Assessment Last Done: 12/14/24 19:49
*Neglect/Abuse Screening Last Done: 12/14/24 23:20
*ED- Fall Risk Assessment Last Done: 12/14/24 23:20
*ED COVID-19 Vaccine History Last Done: 12/14/24 23:20
*ED Influenza Vaccine History Last Done: 12/14/24 23:20
ED- Cardiac Assessment Last Done: 12/14/24 23:20
ED- Neurological Assessment Last Done: 12/14/24 23:20
ED- Pulmonary Assessment Last Done: 12/14/24 23:20
Discharge Date and Time
Print Language: GERMAN
[2024-12-15 01:49] LABS: Urine Red Blood Cell 0-2 /HPF (0-2); Urine Squamous Cell 0-2 /LPF (Few); Urine White Cell 0-2 /HPF (0-5)
--- NOTE | 2024-12-15 01:52 | HPS.HSE ---
Family Physician
-
Family Physician: Carissa Barreto
Chief Complaint
-
Confusion
History of Present Illness
This is a 79-year-old female with past medical history significant for jod-wvmjngt-pfdumhxvw diabetes, hypertension, chronic pain requiring opioids, depression history of spinal stenosis with chronic back pain who presents to the emergency
department with episode of elevated blood pressure confusion at home.
Patient reported that she had abdominal cramps this afternoon. She had a visiting nurse come by and evaluate her.
She had elevated blood pressures but she did not know how high it was. She was told to come to the emergency department. She is no longer having any abdominal cramps. She denies having any diarrhea. She denies any nausea or vomiting. She denies
any urinary symptoms. She denies having any chest pain. She denies feeling short of breath. She denies having any cough.
Patient was last seen here few weeks ago and at that time had diarrhea which was thought to be from metformin. She also had confusion which was thought to be secondary to withdrawal from opioids. She was continued on home doses of morphine and
metformin was discontinued. Patient reports that she has been well since then.
In the emergency department she was afebrile, blood pressure was 160/87 with a pulse of 64 and she was satting 97% on room air. ECG with sinus tachycardia at 102. Troponin was negative CT of the head was negative. She had leukocytosis to 16.9
with normal hemoglobin and platelets. Electrolytes showed a sodium of 133 but otherwise unremarkable. UA was negative. She had a negative COVID test. CT of the abdomen pelvis shows no acute intra-abdominal pathology.
Medical History
Past Medical History
Past Medical History: Reports Other (spinal stenosis, essential HTN, NIDDM, DVT )
Past Surgical History: Reports Orthopedic
Social History
Tobacco: Non-smoker
Alcohol: None
Family History
Family History: Not pertinent
Allergies / Home Medications
Allergies reflects when Allergies were last updated in [employer].
Home Medications with original date entered in [employer]
Allergy/Medication List:
Allergies
Allergy/AdvReac Type Severity Reaction Status Date / Time
No Known Allergies Allergy Verified 12/14/24 19:49
Home Medications
diltiazem HCl 240 mg capsule,extended release 24 hr (Cardizem CD) 300 mg PO DAILY Heart Disease/Condition 06/02/13
fenofibrate nanocrystallized 145 mg tablet 145 mg PO DAILY HIGH TRIGLYCERIDES 06/02/13
apixaban 2.5 mg tablet (Eliquis) 2.5 mg PO BID Blood Clot Prevention/Tx 11/10/24
buspirone 10 mg tablet 10 mg PO BID Mental Health/Anxiety 11/10/24
lisinopril 40 mg tablet (Zestril) 40 mg PO DAILY Blood Pressure 11/10/24
mirtazapine 15 mg tablet 15 mg PO HS Mental Health/Anxiety 11/10/24
montelukast 10 mg tablet (Singulair) 10 mg PO DAILY ALLERGY/ASTHMA 11/10/24
morphine 15 mg tablet,extended release 15 mg PO BID Pain #4 tabs 11/20/24
oxycodone-acetaminophen 10 mg-325 mg tablet (Percocet) 1 tab PO Q4H PRN severe pain #5 tabs 11/20/24
sennosides 8.6 mg-docusate sodium 50 mg tablet (Senna Plus) 1 tab PO BID PRN Constipation #20 tabs 11/20/24
trazodone 150 mg tablet 150 mg PO HS Mental Health/Anxiety #7 tabs 11/20/24
venlafaxine 225 mg tablet,extended release 24 hr 225 mg PO DAILY #30 tabs 11/20/24
metformin 500 mg tablet 500 mg PO DAILY 12/14/24
Review of Systems
-
Constitutional: Reports No Symptoms
EENT: Reports No Symptoms
Respiratory: Reports No Symptoms
Cardiac: Reports No Symptoms
Abdomen/GI: Reports No Symptoms
: Reports No Symptoms
Musculoskeletal: Reports No Symptoms
Skin: Reports No Symptoms
Neurological: Reports No Symptoms
Endocrine: Reports No Symptoms
Hematologic/Lymphatic: Reports No Symptoms
Psych: Reports No Symptoms
Physical Exam
Vital Signs
Vital Signs
Temp Pulse Resp BP Pulse Ox
98.5 F 104 20 156/87 97
12/14/24 19:49 12/14/24 19:49 12/14/24 19:49 12/14/24 23:13 12/15/24 00:47
Physical Exam
General: Well Developed, Well Nourished and No Apparent Distress
HEENT: NormoCephalic, Moist mucous membranes and Atraumatic
Respiratory: Clear
Cardiac: S1/S2 and Regular Rhythm; No Murmur or Rub
GI: Soft, Non Tender, Non Distended and Normal Bowel Sounds; No Organomegaly
Rectal: Deferred by Provider
Musculoskeletal: No Clubbing, No Cyanosis and No Edema
Skin: No Rash
Neuro: AO x 3 and Nonfocal/grossly intact
Laboratory Results
-
12/14/24 20:02
12/14/24 20:02
Laboratory Results
APTT 33.0 Sec (23.4-35.0) 12/14/24 23:32
Total Bilirubin 0.8 mg/dl (0.2-1.3) 12/14/24 20:02
AST 27 U/L (14-36) 12/14/24 20:02
ALT 18 U/L (0-35) 12/14/24 20:02
Alkaline Phosphatase 46 U/L (38-126) 12/14/24 20:02
Troponin I < 0.012 ng/ml 12/14/24 20:02
Data Reviewed
-
Diagnostic Radiology: Image Personally Visualized and interpreted
CT Scan: Report Reviewed by me
Medical Tests (Nuc Med, Echo, EKG etc): Image Personally Visualized and interpreted
Lab Data: Labs Reviewed by me
Old Records: Reviewed
Impression/Plan
-
IMPRESSION:
79-year-old female with past medical history of hypertension, maj-cjbzgbq-ectnzqmdf diabetes, depression, chronic pain with chronic opioid use, history of DVT on Eliquis for DVT prevention who presents to the emergency department with abdominal
cramps and elevated blood pressure was found to be confused. Patient's abdominal discomfort has resolved. She had normal chemistries and LFTs, CT of the abdomen pelvis was unremarkable and UA was negative. ECG was nonischemic with a negative
troponin. Chest x-ray was clear. CT of the head was unremarkable. In the ED blood pressure was moderately elevated at 160/90 with rest of vitals been unremarkable. She had a leukocytosis to 16.9 with otherwise normal hemoglobin and platelets.
The differential on the WBCs was normal. She is currently alert and oriented x 3 to me and appropriate with responses. She reports that she lives with spouse was 82 years old. Daughter is currently at alcohol rehab. She ambulates with cane and
also has a walker. She usually does activities of daily living and usually orders out for meals. At this time patient has no acute abnormalities on physical exam, mental status evaluation imaging or EKG. Daily abnormalities this leukocytosis
which is relatively new within normal differential.
PLAN:
Leukocytosis -unclear etiology. At this time there is no obvious source of infection. She has not been started on any new medications. She has no obvious skin rash. She has normal counts on the other lineages. No joint swelling erythema or
tenderness.
- Admit to [facility] observation
-Monitoring patient for the next 4 hours to see if she spikes a fever or develops any other acute symptoms such as diarrhea nausea or vomiting.
-Will hold off on antibiotics for now
-No indication for inflammatory markers
-Continue her usual medications.
Abdominal cramps -normal labs, CT is unremarkable, no current abdominal discomfort and abdominal exam was benign.
Confusion -patient is currently alert and oriented x 3, appropriate in all her responses. No acute viral infection noted. CT of the head was negative. No focal neurological deficits.
-No evidence of encephalopathy/delirium at this time
Hypertension -relatively stable
- Continue lisinopril, patient reported that she took medications later than usual does result in higher readings when visiting nurse arrived
- Continue diltiazem
DM II - metformin stopped on last admit, pioglitazone started. Current still indicates metformin and no pioglitazone. Patient says she's not taking diabetic meds ('I don't have diabetes')
- holding metformin
- sliding scale insulin
- would hold off on pioglitazone, can restart in am
Depression
- Continue Remeron, buspirone and venlafaxine
Chronic pain
� Continue morphine 15 mg p.o. twice daily
� Oxycodone/acetaminophen 07/16/2024 1 every 4 hours as needed
DVT prophylaxis�on apixaban 2.5 twice daily
CODE STATUS�full code
[2024-12-15] MEDS: MELATONIN 3 MG PO ×2 (04:05→21:17)
--- NOTE | 2024-12-15 04:16 | PTCARENOTE ---
Pt arrived to unit via stretcher. Pt walked from stretcher to bed with rolling walker. Pt oriented to room. Pt AAOx3, VSS. Call robin within reach, plan of care ongoing.
[2024-12-15 05:57] LABS: Hematocrit 35.4 % (37.0-47.0); Hemoglobin 11.9 g/dL (12.0-16.0); Mean Corp Hgb Conc. 33.6 g/dL (33.0-37.0); Mean Corpuscular Volume 83.7 fL (81.0-99.0); Platelet Count 419 10^3/uL (130-400); Red Cell Dist. Width 14.1 % (11.5-14.5)
[2024-12-15 06:22] LABS: Blood Urea Nitrogen 25 mg/dl (7-17); Calcium 9.7 mg/dl (8.4-10.2); Carbon Dioxide 19 mmol/L (22-30); Chloride 103 mmol/L (98-107); Estimated Creatinine Clearance 39 ml/min; Glucose 115 mg/dl (70-99); Magnesium 1.6 mg/dl (1.6-2.3); Potassium 3.6 mmol/L (3.5-5.1); Sodium 131 mmol/L (135-145); eGFR > 60.00
[2024-12-15 07:56] LABS: Glucose - Point of Care 110 mg/dl (70-99)
--- NOTE | 2024-12-15 08:15 | VNURNOTE ---
Chart reviewed. Patient is current with [facility]. Will continue to follow hospital course and DC plans.
[2024-12-15] MEDS: EFFEXOR XR 225 MG PO (09:42)
[2024-12-15] MEDS: ZESTRIL 40 MG PO (09:43)
[2024-12-15] MEDS: TRICOR 145 MG PO (09:43)
[2024-12-15] MEDS: MS CONTIN (EXTENDED RELEASE) 15 MG PO ×2 (09:43→20:09)
[2024-12-15] MEDS: CARDIZEM CD 300 MG PO (09:44)
[2024-12-15] MEDS: ELIQUIS 2.5 MG PO ×2 (09:44→20:09)
[2024-12-15] MEDS: NOVOLOG FLEXPEN-LOW RESISTANCE SC ×3 (09:44→17:10)
[2024-12-15] MEDS: BUSPAR 10 MG PO ×2 (09:44→20:09)
[2024-12-15] MEDS: SINGULAIR 10 MG PO (09:44)
--- NOTE | 2024-12-15 10:40 | W.PN.HOSP.TC ---
Today's Communication/Plan
-
see A/P
Assessment / Plan
Assessment / Plan
HPI: 79-year-old female with past medical history of apc-risfmoe-dairpbyze diabetes, hypertension, chronic pain requiring opioids, depression, history of spinal stenosis with chronic back pain, history of DVT on Eliquis for DVT prevention; p/w
elevated blood pressure and confusion at home.
She also c/o abdominal cramps which has resolved. She had a visiting nurse who came by and evaluated her, and she was told to come to the emergency department.
She denies to any change in BM, N/V etc.
Patient was last seen here a few weeks ago and at that time had diarrhea which was thought to be from metformin. She also had confusion which was thought to be secondary to withdrawal from opioids. She was continued on home doses of morphine and
metformin was discontinued. Patient reports that she has been well since then.
In the ED, she had normal chemistries and LFTs, CT of the abdomen pelvis was unremarkable and UA was negative. Chest x-ray was clear. CT of the head was unremarkable.
Her blood pressure was moderately elevated at 160/90 with rest of vitals been unremarkable. She had a leukocytosis to 16.9 with otherwise normal hemoglobin and platelets.
She was not confused, was alert and oriented x 3 with appropriate responses.
She reported that she lives with spouse who is 82 years old. Daughter is currently at alcohol rehab. She ambulates with cane and also has a walker. She usually does activities of daily living and usually orders take out for meals.
A/P:
# Leukocytosis of unclear etiology.
COVID/Flu negative
No obvious source of infection. She has not been started on any new medications. She has no obvious skin rash. No joint swelling erythema or tenderness.
Follow temperate curve, monitor for development of any new symptoms
Check CRP
Agree with holding off on antibiotics for now
Continue her usual medications.
# Abdominal cramps, resolved
CT AP noted mild esophageal wall thickening, suggesting esophagitis and gastroesophageal reflux or esophageal dysmotility. No other acute process in the abdomen or pelvis.
Also Moderate left hydronephrosis. No hydroureter or obstructing ureteral calculus. 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
Cover with IV Protonix 40 mg BID while in the hospital
It appears that pt never stopped taking metformin even though it was discontinued last admission, would hold further metformin in setting of abd cramp
# Confusion, resolved
patient is currently alert and oriented x 3, appropriate in all her responses.
CT of the head was negative. No focal neurological deficits.
No evidence of encephalopathy/delirium at this time
# Mild hyponatremia
Monitor
# Hypertension, relatively stable
Continue CLEARING SUPERVISOR lisinopril and diltiazem with holding parameters
# DM II
Recent A1C at 6.5%
It appears that pt never stopped taking metformin even though it was discontinued last admission, would hold further metformin in setting of abd cramp
Pt was started with pioglitazone last admission which she never did
Cover with ISS
# Depression
Continue Remeron, buspirone and venlafaxine
# Chronic pain
Continue morphine 15 mg p.o. twice daily
Oxycodone/acetaminophen 07/16/2024 1 every 4 hours as needed
DVT prophylaxis�on apixaban 2.5 twice daily
CODE STATUS�full code
pharmacy
total time 51 min today
Anticipated Discharge: 24 - 48 hours
Subjective/Interval History
-
Date of Service: December 15, 2024
Objective Data
-
Labs:
Laboratory Results
12/14/24 12/15/24
23:32 05:41
WBC 13.8 H
Hgb 11.9 L
Hct 35.4 L
Plt Count 419 H
APTT 33.0
Sodium 131 L
Potassium 3.6
Chloride 103
Carbon Dioxide 19 L
BUN 25 H
Creatinine 0.9
Glucose 115 H
Calcium 9.7
Vital Signs:
Vital Signs
Temp Pulse Resp BP Pulse Ox
36.5 C 76 14 127/56 95
12/15/24 07:35 12/15/24 09:43 12/15/24 07:35 12/15/24 09:43 12/15/24 07:35
I&O
12/14/24 12/15/24 12/16/24
06:59 06:59 06:59
Intake Total 480 / 480
Balance 480 / 480
Review of Systems
-
History Source: Patient
All other systems: Reviewed and negative
Abdomen/GI: Denies Abdominal Pain
Physical Exam
-
General: Well Developed, Well Nourished, No Apparent Distress, Comfortable, Conversant and Appears Chronically Ill
HEENT: Normocephalic, Atraumatic and Hearing Impaired
Respiratory: Clear to Auscultation and Non Labored Respirations; Negative Accessory Resp Muscle Use
Cardiac: Regular Rhythm and S1/S2; Negative Murmur
GI: Soft, Nontender, Nondistended and Normal Bowel Sounds
Musculoskeletal: No Clubbing, No Cyanosis and No Edema
Skin: Warm
Neuro: Awake
Psych: Calm and Intact Judgement/Insight
Data Reviewed
-
CT Scan: Report Reviewed by me
Labs: Labs Reviewed by me
[2024-12-15] MEDS: MAGNESIUM SULFATE 50 IV (11:12)
[2024-12-15] MEDS: PROTONIX IV 40 MG IV ×2 (11:22→20:10)
[2024-12-15] MEDS: NSS (PRESERVATIVE FREE) 10 ML IV ×2 (11:24→20:10)
[2024-12-15] MEDS: KCL 40 MEQ PO (11:38)
[2024-12-15 12:01] LABS: Glucose - Point of Care 131 mg/dl (70-99)
[2024-12-15 12:35] LABS: C-Reactive Protein < 5.00 mg/L (0.0-10.00)
[2024-12-15] MEDS: PERCOCET 5/325 2 TABLET PO (14:28)
--- NOTE | 2024-12-15 15:52 | CM ---
CM reviewed chart, call to patients Yaya garcia, to complete initial assessment, patient recognized from recent previous admission.
Patient is a 79-year-old female with past medical history significant for sla-khkvfwn-lnccmeemg diabetes, hypertension, chronic pain requiring opioids, depression history of spinal stenosis with chronic back pain who presents to the emergency
department with episode of elevated blood pressure confusion at home.
Per daughter, she is getting on a work call, shared patients other daughter should be bedside and able to speak with CM.
Patient seen bedside, no family present, IA completed with patient.
Patient resides with her and daughter in a multiple story home, patient resides on first floor, ramp to enter.
Patient recently d/c to home from [facility].
Patient has a RW and cane at home, is current with [facility].
PCP Carissa Barreto, Pharmacy [facility].
CM discussed therapy recs of SNF vs - patient would like to return home with [facility].
BECK form verbally reviewed, provided with copy, placed in chart.
Call to patients Yaya garcia, left .
CM will continue to follow for all d.c planning needs.
Plan; home with [facility]
[2024-12-15 17:07] LABS: Glucose - Point of Care 100 mg/dl (70-99)
[2024-12-15] MEDS: REMERON 15 MG PO (21:17)
[2024-12-15] MEDS: DESYREL 150 MG PO (21:18)
[2024-12-15 21:43] LABS: Glucose - Point of Care 154 mg/dl (70-99)
[2024-12-16 05:56] LABS: Hematocrit 33.3 % (37.0-47.0); Hemoglobin 11.1 g/dL (12.0-16.0); Mean Corp Hgb Conc. 33.3 g/dL (33.0-37.0); Mean Corpuscular Volume 84.7 fL (81.0-99.0); Platelet Count 348 10^3/uL (130-400); Red Cell Dist. Width 14.5 % (11.5-14.5)
[2024-12-16 06:03] LABS: Blood Urea Nitrogen 36 mg/dl (7-17); Calcium 9.4 mg/dl (8.4-10.2); Carbon Dioxide 20 mmol/L (22-30); Chloride 106 mmol/L (98-107); Estimated Creatinine Clearance 27 ml/min; Glucose 92 mg/dl (70-99); Magnesium 2.5 mg/dl (1.6-2.3); Potassium 4.1 mmol/L (3.5-5.1); Sodium 132 mmol/L (135-145); eGFR 41.31
[2024-12-16 07:36] LABS: Glucose - Point of Care 86 mg/dl (70-99)
[2024-12-16] MEDS: NOVOLOG FLEXPEN-LOW RESISTANCE SC ×3 (07:39→18:07)
[2024-12-16 08:09] VITALS: BP 110/57
[2024-12-16] MEDS: EFFEXOR XR 225 MG PO (08:32)
[2024-12-16] MEDS: CARDIZEM CD 300 MG PO (08:32)
[2024-12-16] MEDS: SINGULAIR 10 MG PO (08:32)
[2024-12-16] MEDS: BUSPAR 10 MG PO ×2 (08:32→20:37)
[2024-12-16] MEDS: MS CONTIN (EXTENDED RELEASE) 15 MG PO ×2 (08:34→20:37)
[2024-12-16] MEDS: TRICOR 145 MG PO (08:34)
[2024-12-16] MEDS: ELIQUIS 2.5 MG PO ×2 (08:34→20:37)
[2024-12-16] MEDS: NSS (PRESERVATIVE FREE) 10 ML IV ×2 (08:35→20:38)
[2024-12-16] MEDS: PROTONIX IV 40 MG IV ×2 (08:37→20:37)
[2024-12-16] MEDS: NSS 500 IV (09:03)
--- NOTE | 2024-12-16 10:35 | W.PN.HOSP.TC ---
Today's Communication/Plan
-
see A/P
Assessment / Plan
Assessment / Plan
HPI: 79-year-old female with past medical history of yqx-irzgfci-coohzpzyl diabetes, hypertension, chronic pain requiring opioids, depression, history of spinal stenosis with chronic back pain, history of DVT on Eliquis for DVT prevention; p/w
elevated blood pressure and confusion at home.
She also c/o abdominal cramps which has resolved. She had a visiting nurse who came by and evaluated her, and she was told to come to the emergency department.
She denies to any change in BM, N/V etc.
Patient was last seen here a few weeks ago and at that time had diarrhea which was thought to be from metformin. She also had confusion which was thought to be secondary to withdrawal from opioids. She was continued on home doses of morphine and
metformin was discontinued. Patient reports that she has been well since then.
In the ED, she had normal chemistries and LFTs, CT of the abdomen pelvis was unremarkable and UA was negative. Chest x-ray was clear. CT of the head was unremarkable.
Her blood pressure was moderately elevated at 160/90 with rest of vitals been unremarkable. She had a leukocytosis to 16.9 with otherwise normal hemoglobin and platelets.
She was not confused, was alert and oriented x 3 with appropriate responses.
She reported that she lives with spouse who is 82 years old. Daughter is currently at alcohol rehab. She ambulates with cane and also has a walker. She usually does activities of daily living and usually orders take out for meals.
A/P:
# Leukocytosis of unclear etiology.
COVID/Flu negative.
CRP negative
No fever
No obvious source of infection.
Monitor CBC, observe off antibiotic for now
Continue her usual medications.
# New HECTOR
SCr 1.3 from baseline 0.9
gentle IVF today,
Monitor SCr
# Abdominal cramps, resolved
CT AP noted mild esophageal wall thickening, suggesting esophagitis and gastroesophageal reflux or esophageal dysmotility. No other acute process in the abdomen or pelvis.
Also Moderate left hydronephrosis. No hydroureter or obstructing ureteral calculus. 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
Cover with IV Protonix 40 mg BID while in the hospital
Pt was instructed to stop metformin from her previous admission (2/2 severe diarrhea and HECTOR), it appears that she was still taking metformin at home.
recc to hold metformin going forward.
Informed pt to follow up with her PCP for DM Mx
# Confusion, resolved
patient is currently alert and oriented x 3, appropriate in all her responses. She answers questions slowly.
CT of the head was negative. No focal neurological deficits.
No evidence of encephalopathy/delirium at this time
# Mild hyponatremia
Monitor
# Hypertension, relatively stable
Continue FINANCIAL ASSISTANCE SPECIALIST lisinopril and diltiazem with holding parameters
# DM II
Recent A1C at 6.5%
It appears that pt never stopped taking metformin even though it was discontinued last admission, recc to hold further metformin
Pt was started with pioglitazone last admission which she never did
Cover with ISS
Informed pt to follow up with her PCP for DM Mx
# Depression
Continue Remeron, buspirone and venlafaxine
# Chronic pain
Continue morphine 15 mg p.o. twice daily
Oxycodone/acetaminophen 07/16/2024 1 every 4 hours as needed
DVT prophylaxis�on apixaban 2.5 twice daily
CODE STATUS�full code
Dispo: HH vs SNF, TBD per PT
Anticipated Discharge: 24 - 48 hours
Subjective/Interval History
-
Date of Service: December 16, 2024
Objective Data
-
Labs:
Laboratory Results
12/16/24
05:35
WBC 12.8 H
Hgb 11.1 L
Hct 33.3 L
Plt Count 348
Sodium 132 L
Potassium 4.1
Chloride 106
Carbon Dioxide 20 L
BUN 36 H
Creatinine 1.3 H
Glucose 92
Calcium 9.4
Vital Signs:
Vital Signs
Temp Pulse Resp BP Pulse Ox
36.4 C 64 16 110/57 93
12/16/24 08:09 12/16/24 08:32 12/16/24 08:09 12/16/24 08:32 12/16/24 08:09
I&O
12/15/24 12/16/24 12/17/24
06:59 06:59 06:59
Intake Total 480 / 480 720 / 720
Balance 480 / 480 720 / 720
Review of Systems
-
History Source: Patient
All other systems: Reviewed and negative
Abdomen/GI: Denies Abdominal Pain
Physical Exam
-
General: Well Developed, Well Nourished, No Apparent Distress, Comfortable, Conversant and Appears Chronically Ill
HEENT: Normocephalic and Atraumatic
Respiratory: Clear to Auscultation and Non Labored Respirations; Negative Accessory Resp Muscle Use
Cardiac: Regular Rhythm and S1/S2; Negative Murmur
GI: Soft, Nontender, Nondistended and Normal Bowel Sounds
Musculoskeletal: No Clubbing, No Cyanosis and No Edema
Skin: Warm
Neuro: Awake
Psych: Calm and Intact Judgement/Insight
Data Reviewed
-
CT Scan: Report Reviewed by me
Labs: Labs Reviewed by me
[2024-12-16 12:02] LABS: Glucose - Point of Care 96 mg/dl (70-99)
[2024-12-16 13:43] VITALS: BP 119/51; PULSE 74; O2SAT 92
[2024-12-16] MEDS: PERCOCET 5/325 2 TABLET PO (14:17)
--- NOTE | 2024-12-16 15:24 | PTCARENOTE ---
called daughter Ivelisse Yu with general update about mom as requested. Daughter will be up shortly to see her.
[2024-12-16 15:35] VITALS: BP 108/55
--- NOTE | 2024-12-16 17:12 | CM ---
CM met with Sue, her S.O., and her daughter to discuss discharge plans. Pt had been in [facility] previously and daughter and S.O. are in agreement return to [facility]; pt is not sure she wants to go to SNF. Referral sent via [facility] to [facility].
Plan: Follow up with patient and family in AM regarding transfer to [facility].
[2024-12-16 18:00] LABS: Glucose - Point of Care 122 mg/dl (70-99)
[2024-12-16 21:37] LABS: Glucose - Point of Care 117 mg/dl (70-99)
[2024-12-16] MEDS: DESYREL 150 MG PO (21:38)
[2024-12-16] MEDS: MELATONIN 3 MG PO (21:39)
[2024-12-16] MEDS: REMERON 15 MG PO (21:39)
[2024-12-16 23:00] VITALS: BP 99/52
[2024-12-17 07:16] LABS: Hematocrit 33.5 % (37.0-47.0); Hemoglobin 10.9 g/dL (12.0-16.0); Mean Corp Hgb Conc. 32.5 g/dL (33.0-37.0); Mean Corpuscular Volume 87.0 fL (81.0-99.0); Nucleated Red Blood Cells % 0 %; Platelet Count 331 10^3/uL (130-400); Red Cell Dist. Width 14.8 % (11.5-14.5)
[2024-12-17 07:33] LABS: Blood Urea Nitrogen 47 mg/dl (7-17); Calcium 9.4 mg/dl (8.4-10.2); Carbon Dioxide 22 mmol/L (22-30); Chloride 107 mmol/L (98-107); Estimated Creatinine Clearance 19 ml/min; Glucose 138 mg/dl (70-99); Potassium 4.6 mmol/L (3.5-5.1); Sodium 135 mmol/L (135-145); eGFR 27.96
[2024-12-17 08:00] VITALS: BP 100/59
[2024-12-17 08:14] LABS: Glucose - Point of Care 137 mg/dl (70-99)
[2024-12-17] MEDS: BUSPAR 10 MG PO ×2 (08:50→21:56)
[2024-12-17] MEDS: NOVOLOG FLEXPEN-LOW RESISTANCE SC ×3 (08:50→17:13)
[2024-12-17] MEDS: SINGULAIR 10 MG PO (08:50)
[2024-12-17] MEDS: NSS (PRESERVATIVE FREE) 10 ML IV ×2 (08:51→21:55)
[2024-12-17] MEDS: PROTONIX IV 40 MG IV ×2 (08:51→21:56)
[2024-12-17] MEDS: CARDIZEM CD PO (08:51)
[2024-12-17] MEDS: EFFEXOR XR PO ×2 (08:52→09:17)
[2024-12-17] MEDS: ELIQUIS 2.5 MG PO ×2 (08:52→21:56)
[2024-12-17] MEDS: TRICOR 145 MG PO (08:52)
[2024-12-17] MEDS: MS CONTIN (EXTENDED RELEASE) PO (09:09)
[2024-12-17 11:59] LABS: Glucose - Point of Care 115 mg/dl (70-99)
--- NOTE | 2024-12-17 13:37 | W.PN.HOSP.TC ---
Today's Communication/Plan
-
Continue fluids. Stop lisinopril.
Assessment / Plan
Assessment / Plan
79-year-old woman with past medical history of:
rbw-fjkgzki-fqqaszmpf diabetes,
essential hypertension,
chronic pain requiring opioids,
depression,
history of spinal stenosis with chronic back pain,
history of DVT on Eliquis for DVT prevention;
p/w elevated blood pressure and confusion at home. She also c/o abdominal cramps which has resolved. She had a visiting nurse who came by and evaluated her, and she was told to come to the emergency department. She denies to any change in BM, N/V
etc. She was last seen here a few weeks ago and at that time had diarrhea which was thought to be from metformin. She also had confusion which was thought to be secondary to withdrawal from opioids. She was continued on home doses of morphine and
metformin was discontinued. Patient reports that she has been well since then.
In the ED, she had normal chemistries and LFTs, CT of the abdomen pelvis was unremarkable and UA was negative. Chest x-ray was clear. CT of the head was unremarkable. Her blood pressure was moderately elevated at 160/90 with rest of vitals been
unremarkable. She had a leukocytosis to 16.9 with otherwise normal hemoglobin and platelets. She was not confused, was alert and oriented x 3 with appropriate responses. She reported that she lives with spouse who is 82 years old. Daughter is
currently at alcohol rehab. She ambulates with cane and also has a walker. She usually does activities of daily living and usually orders take out for meals.
A/P:
1. Leukocytosis of unclear etiology. worsening. 12.8 --> 14.4
COVID/Flu negative.
CRP negative
No fever
No obvious source of infection.
Monitor CBC, observe off antibiotic for now
Continue her usual medications.
2. New HECTOR
SCr 1.3 --> 1.8 from baseline 0.9
Continue gentle IVF
Monitor SCr
Stop lisinopril
If this continue to get worse, renal consult tomorrow
3. Abdominal cramps, resolved
CT AP noted:
mild esophageal wall thickening, suggesting esophagitis and gastroesophageal reflux or esophageal dysmotility.
No other acute process in the abdomen or pelvis.
Also Moderate left hydronephrosis.
No hydroureter or obstructing ureteral calculus.
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
Cover with IV Protonix 40 mg BID while in the hospital
Pt was instructed to stop metformin from her previous admission
(2/2 severe diarrhea and HECTOR),
it appears that she was still taking metformin at home.
recc to hold metformin going forward.
Informed pt to follow up with her PCP for DM Mx
4. Confusion, resolved
patient was alert and oriented x 3, appropriate in all her responses at time of admit.
She answers questions slowly.
CT of the head was negative.
No focal neurological deficits.
No evidence of encephalopathy/delirium at this time
5. Mild hyponatremia - resolved
Monitor
6. Essential Hypertension, relatively stable
stope FLAP CURER lisinopril
Contiue diltiazem with holding parameters
7. DM II - Recent A1C at 6.5%
It appears that pt never stopped taking metformin even though it was discontinued last admission
recc to hold further metformin
Pt was started with pioglitazone last admission which she never did continue
Cover with ISS
Informed pt to follow up with her PCP for DM Mx
8. Depression
Continue Remeron, buspirone and venlafaxine
9. Chronic pain
Continue morphine 15 mg p.o. twice daily
Oxycodone/acetaminophen 07/16/2024 1 every 4 hours as needed
DVT prophylaxis�on apixaban 2.5 twice daily
CODE STATUS�full code
Dispo: HH vs SNF, TBD per PT
Anticipated Discharge: 24 - 48 hours
Subjective/Interval History
-
Date of Service: December 17, 2024
Was sleeping comfortably.
Objective Data
-
Labs:
Laboratory Results
12/17/24
06:58
WBC 14.4 H
Hgb 10.9 L
Hct 33.5 L
Plt Count 331
Sodium 135
Potassium 4.6
Chloride 107
Carbon Dioxide 22
BUN 47 H
Creatinine 1.8 H
Glucose 138 H
Calcium 9.4
Vital Signs:
Vital Signs
Temp Pulse Resp BP Pulse Ox
98.3 F 78 14 110/59 93
12/17/24 08:00 12/17/24 08:51 12/17/24 08:00 12/17/24 08:51 12/17/24 08:45
I&O
12/16/24 12/17/24 12/18/24
06:59 06:59 06:59
Intake Total 720 / 720 720 / 720
Balance 720 / 720 720 / 720
Review of Systems
-
History Source: Patient
All other systems: Reviewed and negative
Physical Exam
-
General: Well Developed, Well Nourished, No Apparent Distress, Comfortable and Other (was sleeping when I came it, awoke briefly, then went back to sleep.)
HEENT: Normocephalic, Atraumatic, Moist Mucous Membranes, Nose Appears Normal and Ears Appear Normal
Respiratory: Clear to Auscultation
Cardiac: Regular Rhythm and S1/S2
GI: Soft, Nontender and Nondistended
Musculoskeletal: No Clubbing and No Cyanosis
Skin: Warm and Dry
Neuro: Awake
Psych: Calm
Data Reviewed
-
Labs: Labs Reviewed by me
[2024-12-17] MEDS: NSS 1000 IV (14:36)
[2024-12-17 15:11] VITALS: BP 108/55
[2024-12-17 17:08] LABS: Glucose - Point of Care 102 mg/dl (70-99)
[2024-12-17 17:11] LABS: Urine Character Cloudy (Clear)
[2024-12-17 17:19] LABS: Urine Squamous Cell 26-30 /LPF (Few); Urine White Cell 50-60 /HPF (0-5)
[2024-12-17 17:20] LABS: Urine Red Blood Cell 0-2 /HPF (0-2)
--- NOTE | 2024-12-17 18:00 | PTCARENOTE ---
Pt very drowsy in am- unable to stay awake to finish swallowing all morning medications. BP 100/59 Hr 78. Effexor not administered. Ms Tia held. Per parameters analisa ortiz held. made aware of pt status at that time and informed of medications
held. After seeing pt at bedside, IV fluids ordered and hanging. WBC elevated- 14.4. Pt straight cathed to obtain repeat UA. bedside CXR obtained. Pt woke up to eat 90% of dinner. Pt now sleeping. POC ongoing.
[2024-12-17 21:48] LABS: Glucose - Point of Care 105 mg/dl (70-99)
[2024-12-17] MEDS: MELATONIN PO (21:57)
[2024-12-17] MEDS: REMERON 15 MG PO (21:57)
[2024-12-17] MEDS: DESYREL PO (21:57)
[2024-12-17 23:20] VITALS: BP 140/69
[2024-12-18] MEDS: NSS 1000 IV ×2 (04:44→21:47)
[2024-12-18 06:47] LABS: Hematocrit 33.8 % (37.0-47.0); Hemoglobin 11.2 g/dL (12.0-16.0); Mean Corp Hgb Conc. 33.1 g/dL (33.0-37.0); Mean Corpuscular Volume 86.4 fL (81.0-99.0); Nucleated Red Blood Cells % 0 %; Platelet Count 333 10^3/uL (130-400); Red Cell Dist. Width 14.6 % (11.5-14.5)
[2024-12-18 07:00] VITALS: BP 167/87
[2024-12-18 07:31] LABS: Blood Urea Nitrogen 36 mg/dl (7-17); Calcium 9.3 mg/dl (8.4-10.2); Carbon Dioxide 23 mmol/L (22-30); Chloride 109 mmol/L (98-107); Estimated Creatinine Clearance 29 ml/min; Glucose 98 mg/dl (70-99); Potassium 4.6 mmol/L (3.5-5.1); Sodium 137 mmol/L (135-145); eGFR 45.48
[2024-12-18 08:36] LABS: Glucose - Point of Care 131 mg/dl (70-99)
[2024-12-18] MEDS: NOVOLOG FLEXPEN-LOW RESISTANCE SC ×2 (08:36→16:54)
[2024-12-18] MEDS: ELIQUIS 2.5 MG PO ×2 (08:37→21:50)
[2024-12-18] MEDS: EFFEXOR XR 225 MG PO (08:37)
[2024-12-18] MEDS: CARDIZEM CD 300 MG PO (08:37)
[2024-12-18] MEDS: ROCEPHIN 1000 MG IV (08:41)
[2024-12-18] MEDS: SINGULAIR 10 MG PO (08:41)
[2024-12-18] MEDS: NSS (PRESERVATIVE FREE) 10 ML IV ×2 (08:41→21:51)
[2024-12-18] MEDS: STERILE WATER FOR INJECTION 10 ML IV (08:41)
[2024-12-18] MEDS: TRICOR 145 MG PO (08:41)
[2024-12-18] MEDS: BUSPAR 10 MG PO ×2 (08:41→21:50)
[2024-12-18] MEDS: PROTONIX IV 40 MG IV ×2 (08:41→21:51)
[2024-12-18] MEDS: PERCOCET 5/325 1 TABLET PO ×4 (10:00→21:59)
[2024-12-18] MEDS: DESENEX/MITRAZOL/ZEASORB 1 APPLIC TOPICAL ×2 (10:00→21:53)
--- NOTE | 2024-12-18 11:11 | W.PN.HOSP.TC ---
Today's Communication/Plan
-
Continue antibiotics and fluids.
Assessment / Plan
Assessment / Plan
79-year-old woman with past medical history of:
llt-urlzupg-urxlnmzpq diabetes,
essential hypertension,
chronic pain requiring opioids,
depression,
history of spinal stenosis with chronic back pain,
history of DVT on Eliquis for DVT prevention;
p/w elevated blood pressure and confusion at home. She also c/o abdominal cramps which has resolved. She had a visiting nurse who came by and evaluated her, and she was told to come to the emergency department. She denies to any change in BM, N/V
etc. She was last seen here a few weeks ago and at that time had diarrhea which was thought to be from metformin. She also had confusion which was thought to be secondary to withdrawal from opioids. She was continued on home doses of morphine and
metformin was discontinued. Patient reports that she has been well since then.
In the ED, she had normal chemistries and LFTs, CT of the abdomen pelvis was unremarkable and UA was negative. Chest x-ray was clear. CT of the head was unremarkable. Her blood pressure was moderately elevated at 160/90 with rest of vitals been
unremarkable. She had a leukocytosis to 16.9 with otherwise normal hemoglobin and platelets. She was not confused, was alert and oriented x 3 with appropriate responses. She reported that she lives with spouse who is 82 years old. Daughter is
currently at alcohol rehab. She ambulates with cane and also has a walker. She usually does activities of daily living and usually orders take out for meals.
on 12/17/24 the patient had lethargy. UA was checked. Probable infection. Ceftriaxone started. Pain med dose reduced.
on 12/18/24 the patient is much more alert.
A/P:
1. Leukocytosis of unclear etiology. worsening. 12.8 --> 14.4 --> 10.2
COVID/Flu negative.
CRP negative
No fever
No obvious initial source of infection.
Monitored CBC, observed off antibiotics
Continued her usual medications.
She became lethargic
UA shows probable infection
Ceftriaxone
IV fluids
Reduced opioids
2. New HECTOR
SCr 1.3 --> 1.8 --> 1.2 from baseline 0.9
Continue gentle IVF
Monitor SCr
Stopped lisinopril
3. Abdominal cramps, resolved
CT AP noted:
mild esophageal wall thickening, suggesting esophagitis and gastroesophageal reflux or esophageal dysmotility.
No other acute process in the abdomen or pelvis.
Also Moderate left hydronephrosis.
No hydroureter or obstructing ureteral calculus.
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
Cover with IV Protonix 40 mg BID while in the hospital
Pt was instructed to stop metformin from her previous admission
(2/2 severe diarrhea and HECTOR),
it appears that she was still taking metformin at home.
recc to hold metformin going forward.
Informed pt to follow up with her PCP for DM Mx
4. Confusion, resolved
patient was alert and oriented x 3, appropriate in all her responses at time of admit.
She answers questions slowly.
CT of the head was negative.
No focal neurological deficits.
No evidence of encephalopathy/delirium at this time
Change of mental status on 12/17/24 seems to have been infections and pain pills
Pain meds reduced
Infection being treated
5. Mild hyponatremia - resolved
Monitor
6. Essential Hypertension, relatively stable
stope RENTAL REPRESENTATIVE lisinopril
Contiue diltiazem with holding parameters
7. DM II - Recent A1C at 6.5%
It appears that pt never stopped taking metformin even though it was discontinued last admission
recc to hold further metformin
Pt was started with pioglitazone last admission which she never did continue
Cover with ISS
Informed pt to follow up with her PCP for DM Mx
8. Depression
Continue Remeron, buspirone and venlafaxine
9. Chronic pain
morphine 15 mg p.o. twice daily [on hold]
Oxycodone/acetaminophen 07/16/2024 reduced to 1 every 4 hours as needed
DVT prophylaxis�on apixaban 2.5 twice daily
CODE STATUS�full code
Dispo: HH vs SNF, TBD per PT
Daughter updated on the phone
Anticipated Discharge: 24 - 48 hours
Subjective/Interval History
-
Date of Service: December 18, 2024
Awake, alert, no complaints. states 'I feel pretty good'
Objective Data
-
Labs:
Laboratory Results
12/18/24
05:54
WBC 10.2
Hgb 11.2 L
Hct 33.8 L
Plt Count 333
Sodium 137
Potassium 4.6
Chloride 109 H
Carbon Dioxide 23
BUN 36 H
Creatinine 1.2 H
Glucose 98
Calcium 9.3
Vital Signs:
Vital Signs
Temp Pulse Resp BP Pulse Ox
99.4 F 85 16 140/69 94
12/18/24 07:00 12/18/24 08:37 12/18/24 07:00 12/18/24 08:37 12/18/24 07:00
I&O
12/17/24 12/18/24 12/19/24
06:59 06:59 06:59
Intake Total 720 / 720 600 / 600
Output Total 700 / 700
Balance 720 / 720 -100 / -100
Review of Systems
-
History Source: Patient
All other systems: Reviewed and negative
Physical Exam
-
General: Well Developed, Well Nourished, No Apparent Distress, Comfortable and Conversant
HEENT: Normocephalic, Atraumatic and Moist Mucous Membranes
Respiratory: Clear to Auscultation and Decreased Breath Sounds (left side)
Cardiac: Regular Rhythm and S1/S2
GI: Soft, Nontender and Nondistended
Musculoskeletal: No Clubbing and No Cyanosis
Skin: Warm, Dry and Rash
Neuro: Awake and Alert
Psych: Calm
Data Reviewed
-
Labs: Labs Reviewed by me
[2024-12-18 11:51] LABS: Glucose - Point of Care 258 mg/dl (70-99)
[2024-12-18] MEDS: NOVOLOG FLEXPEN-LOW RESISTANCE 3 UNITS SC (14:19)
[2024-12-18 15:00] VITALS: BP 129/62
[2024-12-18 16:49] LABS: Glucose - Point of Care 135 mg/dl (70-99)
[2024-12-18] MEDS: REMERON 15 MG PO (21:50)
[2024-12-18] MEDS: MELATONIN 3 MG PO (21:50)
[2024-12-18 22:12] LABS: Glucose - Point of Care 168 mg/dl (70-99)
[2024-12-18 22:45] VITALS: BP 155/71
[2024-12-19] MEDS: DESYREL 150 MG PO ×2 (00:31→21:57)
[2024-12-19 07:00] VITALS: BP 144/67
[2024-12-19 07:22] LABS: Hematocrit 33.5 % (37.0-47.0); Hemoglobin 10.8 g/dL (12.0-16.0); Mean Corp Hgb Conc. 32.2 g/dL (33.0-37.0); Mean Corpuscular Volume 87.2 fL (81.0-99.0); Platelet Count 307 10^3/uL (130-400); Red Cell Dist. Width 14.3 % (11.5-14.5)
[2024-12-19 07:28] LABS: Blood Urea Nitrogen 27 mg/dl (7-17); Calcium 8.7 mg/dl (8.4-10.2); Carbon Dioxide 21 mmol/L (22-30); Chloride 109 mmol/L (98-107); Estimated Creatinine Clearance 35 ml/min; Glucose 130 mg/dl (70-99); Potassium 4.3 mmol/L (3.5-5.1); Sodium 135 mmol/L (135-145); eGFR 56.60
[2024-12-19 07:44] LABS: Glucose - Point of Care 127 mg/dl (70-99)
[2024-12-19] MEDS: NOVOLOG FLEXPEN-LOW RESISTANCE SC ×2 (08:11→12:26)
[2024-12-19] MEDS: TRICOR 145 MG PO (08:16)
[2024-12-19] MEDS: ELIQUIS 2.5 MG PO ×2 (08:16→20:13)
[2024-12-19] MEDS: EFFEXOR XR 225 MG PO (08:16)
[2024-12-19] MEDS: SINGULAIR 10 MG PO (08:17)
[2024-12-19] MEDS: STERILE WATER FOR INJECTION 10 ML IV (08:17)
[2024-12-19] MEDS: BUSPAR 10 MG PO ×2 (08:17→20:13)
[2024-12-19] MEDS: CARDIZEM CD 300 MG PO (08:17)
[2024-12-19] MEDS: NSS (PRESERVATIVE FREE) 10 ML IV ×2 (08:18→20:11)
[2024-12-19] MEDS: DESENEX/MITRAZOL/ZEASORB 1 APPLIC TOPICAL ×2 (08:18→21:58)
[2024-12-19] MEDS: PROTONIX IV 40 MG IV ×2 (08:18→20:11)
[2024-12-19] MEDS: ROCEPHIN 1000 MG IV (08:18)
[2024-12-19] MEDS: PERCOCET 5/325 1 TABLET PO ×4 (08:29→21:56)
[2024-12-19] MEDS: SENOKOT-S 1 TABLET PO ×2 (10:37→22:18)
[2024-12-19] MEDS: TYLENOL 650 MG PO (10:37)
[2024-12-19 12:20] LABS: Glucose - Point of Care 121 mg/dl (70-99)
--- NOTE | 2024-12-19 13:00 | W.PN.HOSP.TC ---
Today's Communication/Plan
-
Monitor vitals
See plan
Monitor mental status
Restart morphine, hold for sedation
Continue with antibiotic
Discussed with daughter
Assessment / Plan
Assessment / Plan
79-year-old woman with past medical history of:
kxg-pmgbqke-nqyrvzxmn diabetes,
essential hypertension,
chronic pain requiring opioids,
depression,
history of spinal stenosis with chronic back pain,
history of DVT on Eliquis for DVT prevention;
p/w elevated blood pressure and confusion at home. She also c/o abdominal cramps which has resolved. She had a visiting nurse who came by and evaluated her, and she was told to come to the emergency department. She denies to any change in BM, N/V
etc. She was last seen here a few weeks ago and at that time had diarrhea which was thought to be from metformin. She also had confusion which was thought to be secondary to withdrawal from opioids. She was continued on home doses of morphine and
metformin was discontinued. Patient reports that she has been well since then.
In the ED, she had normal chemistries and LFTs, CT of the abdomen pelvis was unremarkable and UA was negative. Chest x-ray was clear. CT of the head was unremarkable. Her blood pressure was moderately elevated at 160/90 with rest of vitals been
unremarkable. She had a leukocytosis to 16.9 with otherwise normal hemoglobin and platelets. She was not confused, was alert and oriented x 3 with appropriate responses. She reported that she lives with spouse who is 82 years old. Daughter is
currently at alcohol rehab. She ambulates with cane and also has a walker. She usually does activities of daily living and usually orders take out for meals.
on 12/17/24 the patient had lethargy. UA was checked. Probable infection. Ceftriaxone started. Pain med dose reduced.
on 12/18/24 the patient is much more alert.
A/P:
Suspected UTI
On ceftriaxone
Urine culture
Suspect some TME likely secondary to UTI and opioids
HECTOR
baseline 0.9
Now improving
Hold lisinopril
Abdominal cramps, resolved
CT AP noted:
mild esophageal wall thickening, suggesting esophagitis and gastroesophageal reflux or esophageal dysmotility.
No other acute process in the abdomen or pelvis.
Also Moderate left hydronephrosis.
No hydroureter or obstructing ureteral calculus.
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
cw Protonix 40 mg BID while in the hospital
Pt was instructed to stop metformin from her previous admission
(2/2 severe diarrhea and HECTOR),
it appears that she was still taking metformin at home.
recc to hold metformin going forward.
Informed pt to follow up with her PCP for DM Mx
Mild hyponatremia - resolved
Monitor
Essential Hypertension, relatively stable
stop OPERATIONS SUPPORT REPRESENTATIVE lisinopril
Contiue diltiazem with holding parameters
DM II - Recent A1C at 6.5%
It appears that pt never stopped taking metformin even though it was discontinued last admission
recc to hold further metformin
Pt was started with pioglitazone last admission which she never did continue
Cover with ISS
Informed pt to follow up with her PCP for DM Mx
Depression
Continue Remeron, buspirone and venlafaxine
Needs neurocognitive testing outpatient with neurology
Chronic pain
Spinal stenosis
Suspect opioid dependence
Follows up with pain management outpatient
morphine 15 mg p.o. twice daily, resume and hold for sedation
Oxycodone/acetaminophen 07/16/2024 reduced to 1 every 4 hours as needed
History of DVT
DVT prophylaxis�on apixaban 2.5 twice daily
CODE STATUS�full code
General: Well Developed, Well Nourished, No Apparent Distress, Comfortable, Conversant and Appears Chronically Ill
HEENT: Normocephalic and Atraumatic
Respiratory: Clear to Auscultation and Non Labored Respirations
Cardiac: Regular Rhythm and S1/S2; Negative Murmur
GI: Soft, Nontender, Nondistended and Normal Bowel Sounds
Musculoskeletal:No Edema
Neuro: Awake
Psych: Calm
Anticipated Discharge: Within 24 hours
Subjective/Interval History
-
Date of Service: December 19, 2024
denies nausea
Objective Data
-
Labs:
Laboratory Results
12/19/24
06:36
WBC 9.5
Hgb 10.8 L
Hct 33.5 L
Plt Count 307
Sodium 135
Potassium 4.3
Chloride 109 H
Carbon Dioxide 21 L
BUN 27 H
Creatinine 1.0
Glucose 130 H
Calcium 8.7
Vital Signs:
Vital Signs
Temp Pulse Resp BP Pulse Ox
97.9 F 84 16 144/67 95
12/19/24 07:00 12/19/24 08:17 12/19/24 07:00 12/19/24 08:17 12/19/24 10:18
I&O
12/18/24 12/19/24 12/20/24
06:59 06:59 06:59
Intake Total 600 / 600 1080 / 1080
Output Total 700 / 700 550 / 550
Balance -100 / -100 530 / 530
[2024-12-19 14:22] VITALS: BP 124/68; PULSE 85
[2024-12-19 15:00] VITALS: BP 122/64
[2024-12-19 16:43] LABS: Glucose - Point of Care 182 mg/dl (70-99)
[2024-12-19] MEDS: NOVOLOG FLEXPEN-LOW RESISTANCE 1 UNITS SC (17:39)
[2024-12-19] MEDS: MS CONTIN (EXTENDED RELEASE) 15 MG PO (20:13)
[2024-12-19 21:24] LABS: Glucose - Point of Care 154 mg/dl (70-99)
[2024-12-19] MEDS: MELATONIN 3 MG PO (21:57)
[2024-12-19] MEDS: REMERON 15 MG PO (21:57)
[2024-12-19 23:00] VITALS: BP 139/75
--- NOTE | 2024-12-20 01:27 | PTCARENOTE ---
Pt aaox3, forgetful at times. Hard of hearing. Medsurg, not on continuous heart monitor. Lungs diminished on RA. SaO2 95%. Incontinent at times. Blanchable red sacrum Assist x1 with RW. C/o pain in lower back radiating down L leg. Scheduled morphine
given at 20:13. PRN percocet given at 21:56. Pt requested stool softener, reports no bm in the past couple days. Active bowel sounds. Soft nontender abdomen. PRN senokot given. No further complaints. Pt resting comfortably in bed at this time. Call
robin within reach. VSS. Care ongoing.
[2024-12-20 07:00] VITALS: BP 145/64
[2024-12-20 07:59] LABS: Glucose - Point of Care 90 mg/dl (70-99)
[2024-12-20] MEDS: NOVOLOG FLEXPEN-LOW RESISTANCE SC (08:04)
[2024-12-20] MEDS: NSS (PRESERVATIVE FREE) 10 ML IV (08:19)
[2024-12-20] MEDS: PROTONIX IV 40 MG IV (08:19)
[2024-12-20] MEDS: ROCEPHIN 1000 MG IV (08:19)
[2024-12-20] MEDS: STERILE WATER FOR INJECTION 10 ML IV (08:20)
[2024-12-20] MEDS: ELIQUIS 2.5 MG PO ×2 (08:20→19:44)
[2024-12-20] MEDS: BUSPAR 10 MG PO ×2 (08:20→19:45)
[2024-12-20] MEDS: CARDIZEM CD 300 MG PO (08:20)
[2024-12-20] MEDS: SINGULAIR 10 MG PO (08:20)
[2024-12-20] MEDS: DESENEX/MITRAZOL/ZEASORB 1 APPLIC TOPICAL (08:21)
[2024-12-20] MEDS: TRICOR 145 MG PO (08:24)
[2024-12-20] MEDS: MS CONTIN (EXTENDED RELEASE) 15 MG PO ×2 (08:24→19:44)
[2024-12-20] MEDS: EFFEXOR XR 225 MG PO (08:24)
[2024-12-20 09:44] LABS: Hematocrit 36.4 % (37.0-47.0); Hemoglobin 12.2 g/dL (12.0-16.0); Mean Corp Hgb Conc. 33.5 g/dL (33.0-37.0); Mean Corpuscular Volume 85.6 fL (81.0-99.0); Nucleated Red Blood Cells % 0 %; Platelet Count 333 10^3/uL (130-400); Red Cell Dist. Width 14.5 % (11.5-14.5)
[2024-12-20 09:45] LABS: Blood Urea Nitrogen 21 mg/dl (7-17); Calcium 9.6 mg/dl (8.4-10.2); Carbon Dioxide 23 mmol/L (22-30); Chloride 107 mmol/L (98-107); Estimated Creatinine Clearance 44 ml/min; Glucose 101 mg/dl (70-99); Potassium 4.6 mmol/L (3.5-5.1); Sodium 136 mmol/L (135-145); eGFR > 60.00
[2024-12-20] MEDS: MIRALAX 17 GRAMS PO (11:05)
[2024-12-20 11:50] LABS: Glucose - Point of Care 199 mg/dl (70-99)
[2024-12-20 12:06] VITALS: BMI 22.3
--- NOTE | 2024-12-20 12:07 | W.PN.HOSP.TC ---
Addendum entered and electronically signed by Ramone Hines MD 12/20/24 14:12:
Time of discharge 38 minutes
Original Note:
Today's Communication/Plan
-
Monitor vitals
See plan
Mental status appears to be improving
Finished antibiotic
miralax
called daughter; left voicemail
dc planning; CM aware
Assessment / Plan
Assessment / Plan
79-year-old woman with past medical history of:
ref-dqcbkmd-vlqfpsvme diabetes,
essential hypertension,
chronic pain requiring opioids,
depression,
history of spinal stenosis with chronic back pain,
history of DVT on Eliquis for DVT prevention;
p/w elevated blood pressure and confusion at home. She also c/o abdominal cramps which has resolved. She had a visiting nurse who came by and evaluated her, and she was told to come to the emergency department. She denies to any change in BM, N/V
etc. She was last seen here a few weeks ago and at that time had diarrhea which was thought to be from metformin. She also had confusion which was thought to be secondary to withdrawal from opioids. She was continued on home doses of morphine and
metformin was discontinued. Patient reports that she has been well since then.
In the ED, she had normal chemistries and LFTs, CT of the abdomen pelvis was unremarkable and UA was negative. Chest x-ray was clear. CT of the head was unremarkable. Her blood pressure was moderately elevated at 160/90 with rest of vitals been
unremarkable. She had a leukocytosis to 16.9 with otherwise normal hemoglobin and platelets. She was not confused, was alert and oriented x 3 with appropriate responses. She reported that she lives with spouse who is 82 years old. Daughter is
currently at alcohol rehab. She ambulates with cane and also has a walker. She usually does activities of daily living and usually orders take out for meals.
on 12/17/24 the patient had lethargy. UA was checked. Probable infection. Ceftriaxone started. Pain med dose reduced.
on 12/18/24 the patient is much more alert.
A/P:
Suspected UTI
Finished treatment, was on ceftriaxone
Urine culture appears mixed simona
Suspect TME likely secondary to UTI and opioids. Appears to be improving
HECTOR
baseline 0.9
Now improving
Restart lisinopril
Abdominal cramps, resolved
CT AP noted:
mild esophageal wall thickening, suggesting esophagitis and gastroesophageal reflux or esophageal dysmotility.
No other acute process in the abdomen or pelvis.
Also Moderate left hydronephrosis.
No hydroureter or obstructing ureteral calculus.
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
cw Protonix 40 mg BID while in the hospital
Pt was instructed to stop metformin from her previous admission
(2/2 severe diarrhea and HECTOR),
it appears that she was still taking metformin at home.
recc to hold metformin going forward.
Informed pt to follow up with her PCP for DM Mx
Mild hyponatremia - resolved
Monitor
Essential Hypertension, relatively stable
Restart WORKERS COMPENSATION CLAIMS ANALYST lisinopril
Contiue diltiazem with holding parameters
Constipation
Laxative
DM II - Recent A1C at 6.5%
It appears that pt never stopped taking metformin even though it was discontinued last admission
recc to hold further metformin
Pt was started with pioglitazone last admission which she never did continue
Cover with ISS
Informed pt to follow up with her PCP for DM Mx
Depression
Continue Remeron, buspirone and venlafaxine
Needs neurocognitive testing outpatient with neurology
Chronic pain
Spinal stenosis
Suspect opioid dependence
Follows up with pain management outpatient
morphine 15 mg p.o. twice daily, resume and hold for sedation
Oxycodone/acetaminophen 07/16/2024 reduced to 1 every 4 hours as needed
History of DVT
DVT prophylaxis�on apixaban 2.5 twice daily
CODE STATUS�full code
General: Well Developed, Well Nourished, No Apparent Distress, Comfortable, Conversant and Appears Chronically Ill
HEENT: Normocephalic and Atraumatic
Respiratory: Clear to Auscultation and Non Labored Respirations
Cardiac: Regular Rhythm and S1/S2; Negative Murmur
GI: Soft, Nontender, Nondistended and Normal Bowel Sounds
Musculoskeletal:No Edema
Neuro: Awake
Psych: Calm
Anticipated Discharge: Today
Subjective/Interval History
-
Date of Service: December 20, 2024
denies nausea
Objective Data
-
Labs:
Laboratory Results
12/20/24
09:16
WBC 7.9
Hgb 12.2
Hct 36.4 L
Plt Count 333
Sodium 136
Potassium 4.6
Chloride 107
Carbon Dioxide 23
BUN 21 H
Creatinine 0.8
Glucose 101 H
Calcium 9.6
Vital Signs:
Vital Signs
Temp Pulse Resp BP Pulse Ox
98.4 F 67 18 145/64 95
12/20/24 07:00 12/20/24 08:20 12/20/24 07:00 12/20/24 08:20 12/20/24 07:00
I&O
12/19/24 12/20/24 12/21/24
06:59 06:59 06:59
Intake Total 1080 / 1080 1120 / 1120
Output Total 550 / 550
Balance 530 / 530 1120 / 1120
[2024-12-20] MEDS: NOVOLOG FLEXPEN-LOW RESISTANCE 1 UNITS SC (13:06)
[2024-12-20] MEDS: PERCOCET 5/325 1 TABLET PO ×2 (13:40→17:42)
[2024-12-20 14:11] VITALS: BP 120/62
--- NOTE | 2024-12-20 14:12 | W.DCSUMMARY ---
Discharge Summary
Discharge Data
Date of Admission: 12/15/24
Date of Discharge: 12/20/24
-
Pending Results: No
Hospital Course
79-year-old female with past medical history of bqk-gjrtbyg-rhzaazqiz diabetes mellitus, essential hypertension, chronic pain on opioids, depression, spinal stenosis, DVT came to the hospital with confusion which was likely thought was secondary to
toxic metabolic encephalopathy possibly from urinary tract infection and opioids. Patient was treated with antibiotics for UTI. Urine culture later came back as mixed simona however given her symptoms she was treated for UTI. Mental status
appeared to improve over time. She also had some abdominal cramping which over time continue to improve. CT scan was done which showed could be possible esophagitis with GERD or esophageal dysmotility. Patient was instructed to follow-up with GI
outpatient. She also had acute kidney injury which continued to improve over time. Her lisinopril was restarted prior to discharge. Patient was also seen by physical therapy and was recommended rehab. Once her symptoms continue to improve, she
was then discharged to rehab with instructions to follow-up with all her physicians outpatient.
Discharge Plan
-
Patient Disposition: Assisted/SNF
Discharge Diagnosis/Procedures: Suspected UTI
Suspect toxic metabolic encephalopathy secondary to UTI and opioids
Acute kidney injury
Hyponatremia
Constipation
Condition: Fair
Diet: Diabetic, Carb Controlled
Activity: As tolerated
Driving Restrictions: Not until seen by your Dr
Bathing Restrictions: None
Referrals:
Carissa Barreto MD [Family Provider, [facility]] - in less than 1 week
Prescriptions:
New
miconazole nitrate [Miconazorb AF] 2 % Powder
1 applic topical BID Qty: 0 0RF
polyethylene glycol 3350 17 gram Powder In Packet
17 g PO DAILY Qty: 0 0RF
pantoprazole 40 mg Tablet,Delayed Release (Dr/Ec)
40 mg PO BID Qty: 0 0RF
oxycodone-acetaminophen 5-325 mg Tablet
1 tab PO Q4HPRN PRN (Reason: severe pain) Qty: 5 0RF
bisacodyl 10 mg Suppository
10 mg SC [id number] PRN (Reason: constipation) Qty: 0 0RF
Continued
diltiazem HCl [Cardizem CD] 240 MG capsule,extended release 24hr
300 mg PO DAILY
fenofibrate nanocrystallized 145 MG tablet
145 mg PO DAILY
buspirone 10 mg Tablet
10 mg PO BID
Eliquis 2.5 mg Tablet
2.5 mg PO BID
montelukast [Singulair] 10 mg Tablet
10 mg PO DAILY
mirtazapine 15 mg Tablet
15 mg PO HS
lisinopril [Zestril] 40 mg Tablet
40 mg PO DAILY
sennosides-docusate sodium [Senna Plus] 8.6-50 mg Tablet
1 tab PO BID PRN (Reason: Constipation) Qty: 20 0RF
trazodone 150 mg Tablet
150 mg PO HS Qty: 7 0RF
venlafaxine 225 mg tablet extended release 24hr
225 mg PO DAILY Qty: 30 0RF
metformin 500 mg Tablet
500 mg PO DAILY
morphine 15 mg tablet extended release
15 mg PO BID Qty: 4 0RF
Rx Instructions:
Hold for sedation
Discontinued
oxycodone-acetaminophen [Percocet] 10-325 mg Tablet
1 tab PO Q4H PRN (Reason: severe pain) Qty: 5 0RF
Discharge Orders:
Discharge Patient (As Directed); Ordered 12/20/24
Ordered By: Ramone Hines
Discharge Date and Time
Discharge Date/Time: 12/20/24 20:23
Print Language: SWAZI
[2024-12-20 15:00] VITALS: BP 129/63
--- NOTE | 2024-12-20 15:12 | CM ---
Pt cleared for discharge to SNF today. [facility] a bed which is where pt wanted to go for rehab services. Authorization obtained via [employer]; auth #[id number] starting today for 7 days.
IMM given to Sue, signed and copy placed in chart.
[facility] Report: [phone]
[facility]
[2024-12-20 17:16] LABS: Glucose - Point of Care 224 mg/dl (70-99)
[2024-12-20] MEDS: NOVOLOG FLEXPEN-LOW RESISTANCE 2 UNITS SC (17:43)
--- NOTE | 2024-12-20 18:05 | PTCARENOTE ---
Attempted to call Chadwick De Leon to give report x1. No answer.
[2024-12-20 19:26] VITALS: BP 144/66
[2024-12-20] MEDS: PROTONIX 40 MG PO (19:44)
== END 2024-12-20 20:23 ==
LOC: 3 WEST ACU 03:19
PROVIDERS: Emergency Medicine; Internal Medicine; ADMITTING PHYSICIAN Internal Medicine; ATTENDING PHYSICIAN Internal Medicine; EMERGENCY PHYSICIAN Emergency Medicine; FAMILY PHYSICIAN Family Medicine
DX: N17.9 Acute kidney failure, unspecified (principal); E87.1 Hypo-osmolality and hyponatremia; K59.00 Constipation, unspecified; D72.829 Elevated white blood cell count, unspecified; R41.0 Disorientation, unspecified; I10 Essential (primary) hypertension; E11.9 Type 2 diabetes mellitus without complications; F32.A Depression, unspecified; G89.29 Other chronic pain; Z79.01 Long term (current) use of anticoagulants; N13.30 Unspecified hydronephrosis; Z11.52 Encounter for screening for COVID-19; Z79.899 Other long term (current) drug therapy; F41.9 Anxiety disorder, unspecified; M48.00 Spinal stenosis, site unspecified; Z86.718 Personal history of other venous thrombosis and embolism; Z79.84 Long term (current) use of oral hypoglycemic drugs; Z79.891 Long term (current) use of opiate analgesic
CPT/HCPCS: 70450; 71045; 71046; 74177; 80048; 80053; 81003; 81015; 82962; 83735; 84484; 85025; 85027; 85730; 86140; 87040; 87086; 87502; 87811; 93005; 97116; 97163; 97167; 97530; 97535; 99285; G0378; Q9967

== ENCOUNTER 2025-01-23 17:05 | Inpatient (IN) | payer OTHER, SELFPAY ==
[2025-01-23] VITALS (11 sets, daily range): BP systolic 54–119; BP diastolic 37–74
[2025-01-23] MEDS: LEVOPHED 250 IV (14:47)
[2025-01-23 14:57] LABS: Hematocrit 43.4 % (37.0-47.0); Hemoglobin 14.5 g/dL (12.0-16.0); Mean Corp Hgb Conc. 33.4 g/dL (33.0-37.0); Mean Corpuscular Volume 85.4 fL (81.0-99.0); Nucleated Red Blood Cells % 0 %; Platelet Count 395 10^3/uL (130-400); Red Cell Dist. Width 14.6 % (11.5-14.5)
--- NOTE | 2025-01-23 14:59 | ED.GENMED ---
History of Present Illness
General
Chief Complaint: Breathing Problem
Source: patient, records and previous hospital records
Exam Limitations: clinical condition and altered mental status
Time Seen by Provider: 01/23/25 14:32
Nursing documentation reviewed up to this point in time: agreed with
History of Present Illness
History of Present Illness:
80-year-old female presents via EMS, apparently has been feeling unwell for a day or so worse last night EMS was called she was hypoxic in the low 80s hypotensive in the 60s started on BiPAP and norepinephrine by EMS when I evaluated the patient she
was awake alert oriented quickly taken off the BiPAP to confirm her history, placed on supplemental oxygen, apparently has a history of DVT she admits to not taking her meds religiously, perhaps missed 1 or 2 doses denies any fevers, on exam she has
crackles at her left base, oriented x 3 moving all extremities
Past History
Past History
ED Past Medical History: HTN, NIDDM, Psychiatric (Anxiety) and Other (DVT)
ED Past Surgical History: Cholecystectomy, and Orthopedic
Social History
Tobacco: Non-smoker
Alcohol: None
Phy Exam
Physical Exam
Physical Exam:
Physical Exam
General: Ill-appearing female hypotensive hypoxic
Neck: Flat neck
Heart: Tachycardia
Lungs: Crackles left greater than
Abdomen: Mild
Neuro: alert and oriented. no focal neurological deficits
Skin: no rash
Psychiatric: cooperative
Extremities: Trace edema
Scores
Heart Failure Risk
Heart Failure Risk Score: Not Applicable
Course
Orders/Labs/Results
Orders:
Orders
01/23/25 14:37
Cardiac Monitoring- Treatment ONCE
Ipratropium/Albuterol Sulfate [Duoneb] 3 ml INH R NOW STA
O2 Therapy [RESP] Stat
Titrate/Wean O2 to maintain O2 sat greater than (%): 95
01/23/25 14:38
Electrocardiogram (*1) Stat
Reason for Study: Other
Other Reason for Exam: pneumonia
EKG- Treatment ONCE
CR Chest Portable - 1 View Urgent
Comment:
Reason For Exam: sob
Reason Study Needs to be Portable: Patient Unstable
01/23/25 14:39
Urinalysis Reflex To Culture Urgent
01/23/25 14:40
CT Chest PE Study Stat
Comment:
Reason For Exam: sob dvt no labs
0.9% Sodium Chloride 1000 ml [Nss] 1,000 ml IV BOLUS
01/23/25 14:44
Basic Metabolic Panel Urgent
Complete Blood Count/With Diff Urgent
Lactic Acid Q4H
Comment: CANCEL 2nd LACTIC ACID IF 1st LACTIC ACID IS LESS THAN 2
NT-proBNP Urgent
Troponin I Urgent
Blood Culture Q30M
LOUIS Source: Blood/Venous
Specimen Description:
Blood Culture Q30M
LOUIS Source: Blood/Venous
Specimen Description:
01/23/25 14:45
NORepinephrine 4 MG/250 ML [Levophed] 4 mg in 250 ml IV PER PROTOCOL
Initial dose in mcg/min, then titrate:: 2
Titrate to keep:: SBP > 90 mmHg
Titrate by mcg/min:: 1-2 mcg/min
Frequency of titrations (minutes):: 5
Maximum dose in ICU in mcg/min:: 30
Maximum dose in IMU in mcg/min:: 8
Maximum dose in IVU in mcg/min:: 4
Begin to taper infusion when:: Remained at goal for 4hrs
Taper by mcg/min:: 1-2 mcg/min
Frequency of taper (minutes) if patient maintains goal:: 30
Taper to off?: Yes
If infusion off & no longer maintaining goal:: Contact Provider
01/23/25 Dinner
Cholesterol Lowering
At Your Request: Limited Participation
Cholesterol Lowering: Sodium, 2 Gram
01/23/25 15:33
0.9% Sodium Chloride 1000 ml [Nss] 2,000 ml IV BOLUS
Cefepime HCl [Maxipime] 2,000 mg IV NOW STA
01/23/25 15:57
Vancomycin [Vancocin] 1,500 mg 0.9% Sodium Chloride 500 ml [Nss] 500 ml IV NOW
01/23/25 16:13
Admit/Transfer Patient As Directed
Co-Sign Provider:
Level of Care: Inpatient admission
Assign to:: IMU- Intermediate Care
Physician / Group: Devan/hospitalist
Diagnosis: sepsis
Reason for Hospitalization: sepsis
Expected length of stay greater than two midnights?: Yes
ELOS- Estimated Length of Stay in days: 4
I certify the patient meets the requirements for IP care: Yes
PRN Pain Medication Management As Directed
May give lesser potent ordered pain med per pt: Yes
preference::
Protocol:: Medication orders for pain may be administered in a
manner that supports deferring to patient preference
when the pt is:
- Requesting an ordered lesser potent pain medication.
Least to most potent pain medications are defined
as: acetaminophen < NSAID < tramadol < opioids
(morphine, oxycodone, hydromorphone).
- Requesting a lesser dose of the same medication IF
ORDERED.
- Requesting a less intrusive route of administration
if both routes are prescribed by the provider (PO <
IV).
01/23/25 16:14
Code Status As Directed
Resuscitation Status: Full Code
01/23/25 16:30
0.9% Sodium Chloride 1000 ml [Nss] 1,000 ml IV 80 mls/hr
01/23/25 16:52
COVID-19 Antigen Routine
Source: Nasal Swab
Influenza A+B Rapid Molecular Routine
[facility]OUIS Source: Nasal Swab
Specimen Description:
MRSA Screen Routine
[facility]OUIS Source: Nose
Specimen Description:
01/23/25 17:52
Lactic Acid Q4H
Comment: repeat q4 hours x 4 or until less than 2 mmol/L
Dextrose 50%-Water [Dextrose 50% Syringe] 12.5 grams IV [id number] PRN
Glucagon [GlucaGen] 1 mg IM PRN PRN
Insulin Aspart Corrective Low [Novolog Flexpen-Low Resistance] See Protocol SC AC
Oxycodone/Acetaminophen [Percocet 5/325] 1 tablet PO Q4HPRN PRN severe pain
VANCOMYCIN Pharmacy to Dose [VANCOCIN Pharmacy to Dose] 1 each Pharmacy To Prepare [Call Pharmacy To Prepare] 0 ml IV PER PROTOCOL
01/23/25 17:52
Activity As Directed
Activity Level: As Tolerated
Bedside Glucose Monitoring As Directed
Frequency: AC&HS
Additional Instructions:: Change to q6h if pt on TPN, tube feeding or not eating
Intake/ Output As Directed
Frequency: Per unit guidelines
Vital Signs As Directed
Frequency: Per unit guidelines
Speech Therapy Eval & Treat Routine
01/23/25 18:00
Piperacillin/Tazo 3.375 Gram [Zosyn] 3.375 gram in 50 ml IV Q6H
01/23/25 18:45
Lactic Acid Q4H
Comment: CANCEL 2nd LACTIC ACID IF 1st LACTIC ACID IS LESS THAN 2
01/23/25 20:00
Apixaban [Eliquis] 2.5 mg PO BID
Buspirone [Buspar] 10 mg PO BID
Morphine Sulfate Extended Rel. [Ms Contin (Extended Release)] 15 mg PO Q12
01/23/25 21:52
Lactic Acid Q4H
Comment: repeat q4 hours x 4 or until less than 2 mmol/L
01/23/25 22:00
Mirtazapine [Remeron] 15 mg PO HS
trazodone 150 mg PO HS
01/23/25 23:59
Troponin I Routine
01/24/25 01:52
Lactic Acid Q4H
Comment: repeat q4 hours x 4 or until less than 2 mmol/L
01/24/25 05:52
Lactic Acid Q4H
Comment: repeat q4 hours x 4 or until less than 2 mmol/L
01/24/25 06:00
Complete Blood Count/With Diff IN AM
Comprehensive Metabolic Panel IN AM
Glycohemoglobin (HgbA1c) IN AM
Troponin I IN AM
01/24/25 08:00
METFORMIN HCl [Glucophage] 500 mg PO DAILY
Pantoprazole [Protonix IV] 40 mg IV DAILY
venlafaxine 225 mg PO DAILY
01/25/25 06:00
Complete Blood Count/With Diff IN AM
Comprehensive Metabolic Panel IN AM
01/26/25 06:00
Complete Blood Count/With Diff IN AM
Comprehensive Metabolic Panel IN AM
01/27/25 06:00
Complete Blood Count/With Diff IN AM
Comprehensive Metabolic Panel IN AM
01/28/25 06:00
Complete Blood Count/With Diff IN AM
Comprehensive Metabolic Panel IN AM
01/29/25 06:00
Complete Blood Count/With Diff IN AM
Comprehensive Metabolic Panel IN AM
01/30/25 06:00
Complete Blood Count/With Diff IN AM
Comprehensive Metabolic Panel IN AM
Abnormal Lab Results
01/23/25
14:44
WBC 14.9 H 10^3/uL
(4.8-10.8)
RDW 14.6 H %
(11.5-14.5)
Abs Immat Gran (auto) 0.1 H 10^3/uL
(0-0.05)
Absolute Neuts (auto) 12.2 H 10^3/uL
(1.4-6.5)
Immature Gran % 0.9 H %
(0-0.5)
Neutrophils % 81.7 H %
(42.2-75.2)
Lymphocytes % 12.5 L %
(20.5-51.1)
Sodium 130 L mmol/L
(135-145)
Carbon Dioxide 20 L mmol/L
(22-30)
BUN 29 H mg/dl
(7-17)
Creatinine 1.5 H mg/dL
(0.6-1.0)
Glucose 146 H mg/dl
(70-99)
Lactic Acid 3.0 H mmol/L
(0.7-2.0)
Troponin I 0.202 H* ng/ml
01/23/25 14:44
01/23/25 14:44
Vital Signs
Initial and Last Documented VS:
Initial Vital Signs
Pulse Resp BP Pulse Ox
124 28 68/52 88
01/23/25 14:32 01/23/25 14:32 01/23/25 14:32 01/23/25 14:32
Last Documented Vital Signs
Pulse Resp BP Pulse Ox
93 17 119/72 88
01/23/25 18:15 01/23/25 18:15 01/23/25 18:10 01/23/25 14:59
MDM/Problems Addressed
Differential Diagnosis Includes:
Acute massive PE sepsis GI bleeding thoracic dissection
MDM/Problems Addressed:
Low blood pressure hypoxic
*Radiology
Radiology exam reviewed: radiology read reviewed
*Pulse Oximetry
SaO2: 88
Nasal Cannula flow liters per minute: 6
Oxygen Mode of Delivery: Room air
Patient hypoxic: yes
*EKG
Interpreted by ED Provider?: Yes
Interpretation: abnormal
Comparison EKG: changes noted
Heart Rate: 112
Rate: tachycardiac
Rhythm: sinus
Ischemia: non-specific ST changes
*Certified Nursing Assistant Interpretation
Rate: tachycardiac
Interpretation: abnormal
Heart Rate: 112
Rhythm: sinus
*Critical Care Note
Total Time (30-74mins, 75-104mins- exclusive of procedures): 40
Update Note
Update Note:
3:30 PM update patient sent for CT of the chest urgently to rule out PE, started on volume resuscitation Levophed
Chest x-ray noted CT chest noted report noted will start on antibiotics check cultures,
CRITICAL CARE STATEMENT: A total of 40 minutes of critical care time was provided for this patient. This includes management of unstable vital signs, evaluation of the patient at bedside, reviewing the patient's pertinent medical records discussion
with EMS providers and patient's family in addition to discussion with consultants, review of old EKGs and review of pertinent medical records. This time with separate from time utilized to perform the aforementioned documented procedures
ED Attending Note
-
Portions of this chart may have been created with voice recognition software.� Occasional wrong word or��sound alike� substitutions may have occurred due to the inherent limitations of voice recognition software.
Discharge Plan
Departure
Patient Disposition: Admit
Date of Disposition: 01/23/25
Time of Disposition: 15:38
Admit to: ICU
Presentation/result/management discussed w/ accepting MD/DO: Hospitalist
Patient with high blood pressure during this ER visit?: No
Condition: Serious
Covid-19: Not Applicable
Discharge Problem:
Sepsis
Interventions
Interventions:
*Risk Screen - Suicide Last Done: 01/23/25 14:32
*General Assessment Last Done: 01/23/25 14:32
*Neglect/Abuse Screening Last Done: 01/23/25 14:32
*ED COVID-19 Vaccine History Last Done: 01/23/25 14:32
*ED Influenza Vaccine History Last Done: 01/23/25 14:32
*Nursing Disposition Last Done: 01/23/25 18:29
ED- Cardiac Assessment Last Done: 01/23/25 15:32
ED- Pulmonary Assessment Last Done: 01/23/25 15:32
Discharge Date and Time
Discharge Date/Time: 01/23/25 18:30
[2025-01-23] MEDS: NSS 1000 IV ×2 (15:00→18:47)
[2025-01-23] MEDS: DUONEB 3 ML INH (15:03)
[2025-01-23 15:30] LABS: Troponin I 0.202 ng/ml
[2025-01-23 15:31] LABS: Carbon Dioxide 20 mmol/L (22-30); Glucose 146 mg/dl (70-99); eGFR 34.58
[2025-01-23] MEDS: MAXIPIME 2000 MG IV (15:37)
[2025-01-23] MEDS: NSS 2000 IV (15:37)
--- NOTE | 2025-01-23 15:42 | HPS.HSE ---
Family Physician
-
Family Physician:
Chief Complaint
-
lethargy
History of Present Illness
HPI: 80-year-old female PMH [id number] diabetes, hypertension, chronic pain requiring opioids, depression, history of spinal stenosis with chronic back pain, history of DVT on Eliquis for DVT prevention; p/w feeling unwell for about a
day.
She was found hypoxic (80's) and hypotensive (SBP 60's) and was placed on BiPAP and started with levo by EMS. She denies to other symptoms, does not endorse to significant cough.
She was taken off BiPAP in the ED and placed on 15L mid flow.
She admits to not taking her meds regularly, except for her opiates
Medical History
Past Medical History
Past Medical History: Reports Other (spinal stenosis, essential HTN, NIDDM, DVT )
Past Surgical History: Reports Orthopedic
Social History
Tobacco: Non-smoker
Alcohol: None
Family History
Family History: Not pertinent
Allergies / Home Medications
Allergies reflects when Allergies were last updated in [facility].
Home Medications with original date entered in [facility]
Allergy/Medication List:
Allergies
Allergy/AdvReac Type Severity Reaction Status Date / Time
No Known Allergies Allergy Verified 12/14/24 19:49
Home Medications
diltiazem HCl 240 mg capsule,extended release 24 hr (Cardizem CD) 300 mg PO DAILY Heart Disease/Condition 06/02/13
fenofibrate nanocrystallized 145 mg tablet 145 mg PO DAILY HIGH TRIGLYCERIDES 06/02/13
apixaban 2.5 mg tablet (Eliquis) 2.5 mg PO BID Blood Clot Prevention/Tx 11/10/24
buspirone 10 mg tablet 10 mg PO BID Mental Health/Anxiety 11/10/24
lisinopril 40 mg tablet (Zestril) 40 mg PO DAILY Blood Pressure 11/10/24
mirtazapine 15 mg tablet 15 mg PO HS depression/sleep 11/10/24
montelukast 10 mg tablet (Singulair) 10 mg PO DAILY allergy/asthma 11/10/24
trazodone 150 mg tablet 150 mg PO HS Mental Health/Anxiety #7 tabs 11/20/24
venlafaxine 225 mg tablet,extended release 24 hr 225 mg PO DAILY #30 tabs 11/20/24
metformin 500 mg tablet 500 mg PO DAILY Diabetes 12/14/24
miconazole nitrate 2 % topical powder (Miconazorb AF) 1 applic topical BID #0 grams 12/20/24
morphine 15 mg tablet,extended release 15 mg PO BID Pain #4 tabs 12/20/24
oxycodone-acetaminophen 5 mg-325 mg tablet 1 tab PO Q4HPRN PRN severe pain #5 tabs 12/20/24
diltiazem HCl 300 mg capsule,extended release 24 hr (Cartia XT) 300 mg PO DAILY Blood Pressure 01/23/25
Review of Systems
-
Constitutional: Reports See HPI and Other (lethargic)
Physical Exam
Vital Signs
Vital Signs
Pulse Resp BP Pulse Ox
101 16 68/49 88
01/23/25 15:00 01/23/25 15:00 01/23/25 14:55 01/23/25 14:59
Physical Exam
General: Well Developed, Well Nourished, Comfortable, Conversant and Appears Chronically Ill
HEENT: NormoCephalic, Moist mucous membranes, Atraumatic and Oxygen (15L mid flow )
Respiratory: Clear, Crackles (base) and Non Labored Respirations; No Accessory Resp Muscle Use
Cardiac: S1/S2 and Regular Rhythm; No Murmur or Rub
GI: Soft, Non Tender, Non Distended and Normal Bowel Sounds; No Organomegaly
Rectal: Deferred by Provider
Musculoskeletal: No Clubbing, No Cyanosis and No Edema
Skin: No Rash
Neuro: Awake and Alert
Psych: Calm and Intact Judgment/Insight
Laboratory Results
-
01/23/25 14:44
01/23/25 14:44
Laboratory Results
Lactic Acid 3.0 mmol/L (0.7-2.0) H 01/23/25 14:44
AST 60 U/L (14-36) H 01/23/25 14:44
ALT 46 U/L (0-35) H 01/23/25 14:44
Alkaline Phosphatase 24 U/L (38-126) L 01/23/25 14:44
Troponin I 0.202 ng/ml H* 01/23/25 14:44
Data Reviewed
-
CT Scan: Report Reviewed by me, Discussed with Patient and Discussed with Family
Lab Data: Labs Reviewed by me
Impression/Plan
-
HPI: 80-year-old female PMH [id number] diabetes, hypertension, chronic pain requiring opioids, depression, history of spinal stenosis with chronic back pain, history of DVT on Eliquis for DVT prevention; p/w feeling unwell for about a
day.
She was found hypoxic (80's) and hypotensive (SBP 60's) and was placed on BiPAP and started with levo by EMS. She denies to other symptoms, does not endorse to significant cough.
She was taken off BiPAP in the ED and placed on 15L mid flow.
She admits to not taking her meds regularly, except for her opiates
CT Chest:
1. No pulmonary embolism is identified.
2. Bilateral consolidation most consistent with pneumonia, apparently greater in the left lung as compared to the right.
3. Small pulmonary nodules as above, 4 mm diameter. Likely to have a benign etiology given the size. If there are risk factors, consider follow-up scan in 12 months as below.
4. Small hiatal hernia. Ingested material throughout the esophagus consistent with significant dysmotility or reflux.
5. Multiple mild compression deformities of the thoracic spine with probable chronic appearance.
6. Splenic low-attenuation lesions as seen on previous CT abdomen and pelvis.
A/P:
# Likely septic shock POA 2/2 CAP
# Acute hypoxic resp failure POA
# Other end organ damages evidenced by lactic acidosis, elevated trop, HECTOR, elevated LFT, all POA
s/p 2L NSS bolus, then cont with NSS at 80 cc/hr
Levophed PRN for BP support
Cont O2 support as needed, currently on 15L mid flow, wean O2 as tolerated, pt not on home O2
CT Chest noted BL consolidation L > R
Check blood cultures
Check MRSA screen, COVID/Flu
cont Zosyn/Vanc
SPL eval
Follow lactate
Follow LFT
# likely prerenal HECTOR
SCr 1.5 from baseline 0.8
IVF
Monitor SCr
# likely non-PA troponin elevation
Cont to trend troponin until peak/plateau
# h/o HTN
Hold SPINE NURSE lisinopril and diltiazem with current shock
# DM II
Follow A1C
cont SPINE NURSE metformin
# Depression
Continue Remeron, buspirone and venlafaxine
# history of spinal stenosis with chronic back pain
# opiate dependence
Continue SPINE NURSE morphine 15 mg p.o. twice daily
Cont SPINE NURSE Percocet PRN
# history of DVT on Eliquis
DVT prophylaxis� SPINE NURSE Eliquis
CODE STATUS�full code
DW care with daughters and at bedside
CC time for severe sepsis POA 40 min
[2025-01-23 15:49] LABS: Blood Urea Nitrogen 29 mg/dl (7-17); Calcium 9.5 mg/dl (8.4-10.2); Chloride 100 mmol/L (98-107); Sodium 130 mmol/L (135-145)
[2025-01-23] MEDS: VANCOCIN 530 MG IV (16:40)
[2025-01-23 17:23] LABS: COVID-19 Antigen Negative (Negative)
--- NOTE | 2025-01-23 18:23 | PHA.VAN.IN ---
Assessment
- Assessment
Renal Function: SCR Appears Elevated from baseline (1.5 from 0.8)
Concomitant Antimicrobials: Zosyn
Plan
- Plan
Initial / Loading Dose: 1500MG
Maintenance Regimen: Dosing by level
Monitoring: Random vancomycin on 01/24/25 @0600 (approximately 13 hours post-dose)
MRSA Screen: Ordered per protocol (MRSA culture pending)
Pharmacokinetics Vancomycin I
- -
Patient Age: 80
Patient Sex: Female
Vancomycin Day #: 1
Indication: Pulmonary/Respiratory
Requesting Provider: Devan
Pertinent Antimicrobial Allergies:
NKDA
Height / Weight:
Height 5 ft 2 in
Actual Weight 64.41 kg
- Vital Signs / Lab Results
Pulse Resp BP Pulse Ox
101 16 68/49 88
01/23/25 15:00 01/23/25 15:00 01/23/25 14:55 01/23/25 14:59
Lab Results - Hematology
01/23/25
14:44
WBC 14.9 H
Lab Results - Chemistry
01/23/25
14:44
BUN 29 H
Creatinine 1.5 H
Albumin Cancelled
01/23/25
14:44
Lactic Acid 3.0 H
Microbiology Results
01/23/25 16:52 Influenza Types A & B (TONIO) - Final
Nasal Swab Negative for Influenza A & B, NAAT
Negative results must be combined with clinical observations
and patient history.
Nucleic Acid Amplification test (NAAT)performed on the
[employer] platform.
--- NOTE | 2025-01-23 18:33 | PTCARENOTE ---
Patient received from ED. Patient accompanied with some family members. DINESH TOBAR. Admission questions done. 2 RN skin performed. Oriented to room. Call robin in reach.
[2025-01-23 18:36] LABS: Troponin I 0.305 ng/ml
[2025-01-23 19:23] LABS: Glucose - Point of Care 125 mg/dl (70-99)
[2025-01-23] MEDS: NOVOLOG FLEXPEN-LOW RESISTANCE SC (19:48)
[2025-01-23] MEDS: ZOSYN 50 IV (20:59)
[2025-01-23] MEDS: DESYREL 150 MG PO (20:59)
[2025-01-23] MEDS: ELIQUIS 2.5 MG PO (20:59)
[2025-01-23] MEDS: REMERON 15 MG PO (21:00)
[2025-01-23] MEDS: DESENEX/MITRAZOL/ZEASORB 1 APPLIC TOPICAL (21:00)
[2025-01-23] MEDS: BUSPAR 10 MG PO (21:00)
[2025-01-23] MEDS: MS CONTIN (EXTENDED RELEASE) 15 MG PO (21:00)
[2025-01-23 23:05] LABS: Glucose - Point of Care 247 mg/dl (70-99)
[2025-01-24] VITALS (17 sets, daily range): BP systolic 81–144; BP diastolic 44–69; BMI 24.6
[2025-01-24 01:17] LABS: Troponin I 0.288 ng/ml
[2025-01-24] MEDS: ZOSYN 50 IV ×2 (01:46→08:04)
[2025-01-24 06:37] LABS: Hematocrit 31.5 % (37.0-47.0); Hemoglobin 10.3 g/dL (12.0-16.0); Mean Corp Hgb Conc. 32.7 g/dL (33.0-37.0); Mean Corpuscular Volume 90.0 fL (81.0-99.0); Nucleated Red Blood Cells % 0 %; Platelet Count 248 10^3/uL (130-400); Red Cell Dist. Width 15.0 % (11.5-14.5)
[2025-01-24] MEDS: NSS 1000 IV ×2 (06:38→20:47)
[2025-01-24 06:58] LABS: Troponin I 0.320 ng/ml
[2025-01-24 07:09] LABS: ALT (SGPT) 28 U/L (0-35); AST (SGOT) 23 U/L (14-36); Albumin 2.4 g/dl (3.5-5.0); Alkaline Phosphatase 25 U/L (38-126); Blood Urea Nitrogen 27 mg/dl (7-17); Calcium 8.1 mg/dl (8.4-10.2); Carbon Dioxide 22 mmol/L (22-30); Chloride 107 mmol/L (98-107); Estimated Creatinine Clearance 31 ml/min; Glucose 121 mg/dl (70-99); Potassium 3.7 mmol/L (3.5-5.1); Sodium 130 mmol/L (135-145); Total Protein 4.6 g/dl (6.3-8.2); eGFR 50.17
[2025-01-24] MEDS: LEVOPHED 250 IV (07:34)
[2025-01-24 07:40] LABS: Glucose - Point of Care 132 mg/dl (70-99)
[2025-01-24] MEDS: NSS (PRESERVATIVE FREE) 10 ML IV (07:42)
[2025-01-24] MEDS: PROTONIX IV 40 MG IV (07:43)
[2025-01-24] MEDS: NOVOLOG FLEXPEN-LOW RESISTANCE SC ×3 (07:44→18:46)
[2025-01-24] MEDS: BUSPAR 10 MG PO ×2 (07:47→20:47)
[2025-01-24] MEDS: GLUCOPHAGE 500 MG PO (07:47)
[2025-01-24 07:48] LABS: Urine Character Clear (Clear)
[2025-01-24] MEDS: ELIQUIS 2.5 MG PO ×2 (07:48→20:46)
[2025-01-24] MEDS: EFFEXOR XR 225 MG PO (07:48)
[2025-01-24] MEDS: DESENEX/MITRAZOL/ZEASORB 1 APPLIC TOPICAL ×2 (07:49→21:23)
--- NOTE | 2025-01-24 07:56 | PTCARENOTE ---
attending notified pt is hypotensive- levo started see MAR
[2025-01-24 07:57] LABS: Glycohemoglobin (HgbA1c) 6.0 % (4.0-5.9)
[2025-01-24] MEDS: MS CONTIN (EXTENDED RELEASE) 15 MG PO ×2 (08:04→20:46)
[2025-01-24 08:14] LABS: Urine Urothelial Cell 0-2 /LPF (FEW)
[2025-01-24 08:15] LABS: Urine Red Blood Cell 0-2 /HPF (0-2)
--- NOTE | 2025-01-24 08:22 | VNURNOTE ---
Chart reviewed. Patient is current with [facility]. Will continue to follow hospital course and DC plans.
--- NOTE | 2025-01-24 08:33 | PTCARENOTE ---
144/60 manual bp levo stopped. IVF and IV abt continue
--- NOTE | 2025-01-24 08:44 | W.PN.HOSP.TC ---
Addendum entered and electronically signed by Shayy Hartman MD 01/24/25 09:09:
daughter called back, updated daughter on the phone
Original Note:
Today's Communication/Plan
-
see A/P
Assessment / Plan
Assessment / Plan
HPI: 80-year-old female PMH [id number]-zkagnbfme diabetes, hypertension, chronic pain requiring opioids, depression, history of spinal stenosis with chronic back pain, history of DVT on Eliquis for DVT prevention; p/w feeling unwell for about a
day.
She was found hypoxic (80's) and hypotensive (SBP 60's) and was placed on BiPAP and started with levo by EMS. She denies to other symptoms, does not endorse to significant cough.
She was taken off BiPAP in the ED and placed on 15L mid flow.
She admits to not taking her meds regularly, except for her opiates
CT Chest:
1. No pulmonary embolism is identified.
2. Bilateral consolidation most consistent with pneumonia, apparently greater in the left lung as compared to the right.
3. Small pulmonary nodules as above, 4 mm diameter. Likely to have a benign etiology given the size. If there are risk factors, consider follow-up scan in 12 months as below.
4. Small hiatal hernia. Ingested material throughout the esophagus consistent with significant dysmotility or reflux.
5. Multiple mild compression deformities of the thoracic spine with probable chronic appearance.
6. Splenic low-attenuation lesions as seen on previous CT abdomen and pelvis.
A/P:
# Likely septic shock POA 2/2 CAP
# Acute hypoxic resp failure POA
# Other end organ damages evidenced by lactic acidosis, elevated trop, HECTOR, all POA
s/p 2L NSS bolus, then cont with NSS at 80 cc/hr
Levophed PRN for BP support
Cont O2 support as needed, weaned from 15L mid flow to 6L NC, cont to wean as tolerated, pt not on home O2
CT Chest noted BL consolidation L > R
Check blood cultures, Check MRSA screen,
COVID/Flu negative
cont Zosyn/Vanc
SPL eval
ID CS
# likely prerenal HECTOR
SCr 1.5 -> 1.1 today
from baseline 0.8
Cont IVF
Monitor SCr
# likely non-TX troponin elevation
# h/o HTN
Hold OPERATIONS MANAGER lisinopril and diltiazem with current shock
# DM II
Follow A1C
cont OPERATIONS MANAGER metformin
# Depression
Continue Remeron, buspirone and venlafaxine
# history of spinal stenosis with chronic back pain
# opiate dependence
Continue OPERATIONS MANAGER morphine 15 mg p.o. twice daily
Cont OPERATIONS MANAGER Percocet PRN
# history of DVT on Eliquis
DVT prophylaxis� OPERATIONS MANAGER Eliquis
CODE STATUS�full code
DW RN
called daughter twice to update, calls not answered
CC for septic shock , CC time 40 min
Anticipated Discharge: > 48 hours
Subjective/Interval History
-
Date of Service: January 24, 2025
Objective Data
-
Labs:
Laboratory Results
01/24/25 01/24/25
06:11 06:12
WBC 12.3 H
Hgb 10.3 L D
Hct 31.5 L
Plt Count 248 D
Sodium 130 L
Potassium 3.7
Chloride 107
Carbon Dioxide 22
BUN 27 H
Creatinine 1.1 H
Glucose 121 H
Calcium 8.1 L
Total Bilirubin 0.6
AST 23
ALT 28
Alkaline Phosphatase 25 L
Vital Signs:
Vital Signs
Temp Pulse Resp BP Pulse Ox
36.6 C 102 24 81/52 95
01/24/25 07:00 01/24/25 07:52 01/24/25 07:52 01/24/25 07:24 01/24/25 07:52
I&O
01/23/25 01/24/25 01/25/25
06:59 06:59 06:59
Output Total 650 / 650
Balance -650 / -650
Review of Systems
-
History Source: Patient
Constitutional: Reports Weakness
Physical Exam
-
General: Well Developed, Well Nourished, Comfortable, Respiratory Distress, Conversant and Appears Chronically Ill
HEENT: Normocephalic, Atraumatic, Moist Mucous Membranes and Oxygen (6L NC)
Respiratory: Clear to Auscultation, Crackles (base) and Non Labored Respirations; Negative Accessory Resp Muscle Use
Cardiac: Regular Rhythm and S1/S2
GI: Soft, Nontender and Nondistended
Musculoskeletal: No Clubbing and No Cyanosis
Skin: Warm, Dry and Rash
Neuro: Awake and Alert
Psych: Calm and Intact Judgement/Insight
Data Reviewed
-
CT Scan: Report Reviewed by me
Labs: Labs Reviewed by me
--- NOTE | 2025-01-24 09:46 | PTOTSP ---
Speech Therapy Evaluation:
Pt without predisposing risk factors of dysphagia. Precipitating risk factors include tenuous respiratory status in the setting of PNA (community-acquired per chart). At bedside, oropharyngeal swallow appeared grossly WFL. Risk of post-prandial
aspiration increased with chest CT showing small hiatal hernia and significant dysmotility or reflux. Pt without dysphagia hx.
Recommend:
1. Regular solids and thin liquids
2. Meds as tolerated
3. General aspiration precautions
4. Strict reflux precautions
5. TESTER SOUND to follow to monitor tolerance of diet, likely brief
[2025-01-24 10:41] LABS: Glucose - Point of Care 219 mg/dl (70-99)
--- NOTE | 2025-01-24 12:27 | CON.ID ---
Consultation
-
Date/Time Consultation Requested: 01/24/2025 0734
Date/Time Consultation Performed: 01/24/2025 0900
Requesting Provider: Dr. Hartman
Performing Provider: Dr. Viera
Reason for Consultation: Leukocytosis
Chief Complaint / Past History
History of Present Illness
Sue Sexton is an 80-year-old female being evaluated in infectious ease consultation at the request of Dr. Hartman regarding leukocytosis. History is obtained from chart review, along with patient interview.
The patient has an underlying history of diabetes mellitus, along with anxiety/depression and chronic low back pain. She presented to [facility] on 01/23 following the development of generalized malaise over the prior 24 hours. She notes
that she recently was hospitalized here at [facility] in early December, at which time she was brought in with confusion felt secondary to TME. She overall improved, and was discharged on 12/20/2024 to home, where she lives with her
and her daughter. She notes she was in her usual state of health until approximately 24 hours prior to admission when she woke up and felt quite fatigued and generally unwell. She denies any recent fevers, but did note chills prior to presenting
to the hospital. She notes chronic left-sided radicular pain without significant change. She admits to some cough and some yellow sputum. There has been no sick contacts in the home. Cough had only been going on for 1 day. She notes no recent
travel. There is 1 dog in the house.
At presentation to the ER she was not febrile, but was found to have a leukocytosis. She has been started on empiric antibiotics, and Infectious Diseases is asked to comment upon further antimicrobial management.
At this time, she denies any headache. She denies any shortness of breath, but is on mid flow O2. She denies any chest pain. She admits to yellow sputum production over the prior 24 hours. She denies any hemoptysis. She denies any nausea,
vomiting, diarrhea or abdominal pain. She denies any dysuria.
Past History
Additional Past Medical History:
HTN
DM
Anxiety/depression
Hx DVT
Chronic low back pain
Additional Past Surgical History:
Cholecystectomy
Spinal surgery
Allergy History:
No Known Allergies Allergy (Verified 12/14/24 19:49)
Medications Reviewed: Yes
Current Antibiotics:
Vancomycin (dosing per pharmacy)
Zosyn 2.25 gm IV q.6 hours
Social History
Tobacco: Non-Smoker
Alcohol: None
Personal:
Living: With Family
Employment: Retired
Family History
Family History: Not Pertinent
Review of Systems
Vital Signs
Temp Pulse Resp BP Pulse Ox
97.9 F 85 18 98/58 98
01/24/25 07:00 01/24/25 11:10 01/24/25 11:10 01/24/25 11:10 01/24/25 10:35
Physical Exam
Physical Exam
Constitutional: No Acute Distress, Comfortable, Chronically Ill and Non-toxic
Head: Normocephalic
Eyes: Pupils Equal, Pupils Round, No Conjunctival Hemorrhage and Sclera Anicteric
Oral: No Thrush and No Ulcers
Cardiovascular: Regular Rate and S1/S2; Negative S3/S4
Pulmonary: Clear; Negative Wheezes, Rales or Rhonchi
Gastrointestinal: Soft, Non Tender, Non Distended and Normal Bowel Sounds
Extremities: Negative Edema, Cyanosis or Erythema
Neurological: Awake and Alert
Psychological: Calm
.
Lab / Diagnostic Study Results
01/24/25 06:12
01/24/25 06:11
Abs Immat Gran (auto) 0.1 10^3/uL (0-0.05) H 01/24/25 06:12
Absolute Neuts (auto) 10.0 10^3/uL (1.4-6.5) H 01/24/25 06:12
Absolute Lymphs (auto) 1.6 10^3/uL (1.2-3.4) 01/24/25 06:12
Absolute Monos (auto) 0.5 10^3/uL (0.1-0.6) 01/24/25 06:12
Absolute Basos (auto) 0.0 10^3/uL (0-0.2) 01/24/25 06:12
Immature Gran % 0.6 % (0-0.5) H 01/24/25 06:12
Neutrophils % 81.6 % (42.2-75.2) H 01/24/25 06:12
Lymphocytes % 13.1 % (20.5-51.1) L 01/24/25 06:12
Monocytes % 4.4 % (1.7-9.3) 01/24/25 06:12
Eosinophils % 0.1 % (0-6) 01/24/25 06:12
Basophils % 0.2 % (0-2) 01/24/25 06:12
Lactic Acid Cancelled 01/24/25 05:52
Ur Squamous Epith Cells 6-10 /LPF (Few) 01/24/25 06:46
Microbiology Results
Micro:
01/23/25 16:52 Nasal Screen MRSA (PCR) - Final
Nose MRSA not detected - performed by PCR methodology.
01/23/25 16:52 Influenza Types A & B (TONIO) - Final
Nasal Swab Negative for Influenza A & B, NAAT
Negative results must be combined with clinical observations
and patient history.
Nucleic Acid Amplification test (NAAT)performed on the
MEETii[employer] platform.
01/23/25 14:44 Blood Culture - Pending
Blood/Venous
01/23/25 14:44 Blood Culture - Pending
Blood/Venous
Imaging:
01/23/2025 CT chest (PE study): no pulmonary embolism identified. There is bilateral consolidation consistent with pneumonia, greater in the left lung as compared to the right. There are small pulmonary nodules noted. A small hiatal hernia is
noted. Ingested material throughout the esophagus is consistent with significant dysmotility or reflux. There are multiple mild compression deformities of the thoracic spine with probable chronic appearance. Please see full dictation for
additional detail. Film personally viewed.
01/23/2025 CXR (portable): consolidation throughout the left lung seen on CT is indistinct in the study. There is a small amount of consolidation over the right lower lung. Please see full dictation for additional detail.
Assessment / Plan
General malaise
PNA (CAP)
Leukocytosis
HTN
DM
Anxiety/depression
Hx DVT
Chronic low back pain
Recommendations:
Respiratory MRSA PCR screen negative. Will discontinue further vancomycin.
Transition abx to ceftriaxone 2 gm IV q24h
Check sputum culture.
Check Legionella and pneumococcal urinary antigen.
Trend white count and temperature curve.
Wean O2 as tolerated.
Continue supportive care
[2025-01-24 12:31] LABS: Glucose - Point of Care 147 mg/dl (70-99)
[2025-01-24] MEDS: ROCEPHIN 2000 MG IV (13:13)
[2025-01-24] MEDS: STERILE WATER FOR INJECTION 20 ML IV (13:13)
--- NOTE | 2025-01-24 15:00 | PTCARENOTE ---
BP improved, pt has family at bedside, IV aBT change. No further retention, No change in physical assessment
--- NOTE | 2025-01-24 15:03 | CM ---
I.A: Completed By DENEEN Bañuelos.
Patient lives with her in a [address] with 0 [address], uses a rollator, rolling walker, VN/PT with [facility] in the past, and No Inpatient Rehab.
PCP: Dr. Carissa Orr
Pharmacy: [facility] (could not recall the street)
Patient has transportation home. PLAN: Anticipate Home No Needs vs. VN/PT.
[2025-01-24] MEDS: PERCOCET 5/325 1 TABLET PO (15:13)
--- NOTE | 2025-01-24 18:28 | PTCARENOTE ---
bladder scan >400. assisted to BSC, voided roughly 300ml PVR: <100
[2025-01-24 18:41] LABS: Glucose - Point of Care 109 mg/dl (70-99)
[2025-01-24] MEDS: DESYREL 150 MG PO (21:24)
[2025-01-24] MEDS: REMERON 15 MG PO (21:24)
[2025-01-24 21:28] LABS: Glucose - Point of Care 213 mg/dl (70-99)
[2025-01-25] VITALS (13 sets, daily range): BP systolic 123–163; BP diastolic 50–82; PULSE 85–89; O2SAT 95
[2025-01-25] MEDS: PERCOCET 5/325 1 TABLET PO ×3 (03:14→16:34)
--- NOTE | 2025-01-25 03:26 | PTCARENOTE ---
Patient saturated incontinent of urine, PVR 221. Pt assisted OOB to BSC for attempt to empty bladder and voided 175ml lavinia urine. Pt assisted with hygiene care and support to get from bed to BSC and return to bed. 2 assist needed as pt very week
and seem to be confused with the process. She tells me she lives at home with her and that she is independent in self care. Pt denies any safety issues at home.
[2025-01-25 06:17] LABS: Hematocrit 29.3 % (37.0-47.0); Hemoglobin 9.7 g/dL (12.0-16.0); Mean Corp Hgb Conc. 33.1 g/dL (33.0-37.0); Mean Corpuscular Volume 89.1 fL (81.0-99.0); Nucleated Red Blood Cells % 0 %; Platelet Count 248 10^3/uL (130-400); Red Cell Dist. Width 15.1 % (11.5-14.5)
[2025-01-25 06:47] LABS: ALT (SGPT) 20 U/L (0-35); AST (SGOT) 15 U/L (14-36); Albumin 2.3 g/dl (3.5-5.0); Alkaline Phosphatase 33 U/L (38-126); Blood Urea Nitrogen 21 mg/dl (7-17); Calcium 8.1 mg/dl (8.4-10.2); Carbon Dioxide 21 mmol/L (22-30); Chloride 108 mmol/L (98-107); Estimated Creatinine Clearance 34 ml/min; Glucose 108 mg/dl (70-99); Potassium 3.5 mmol/L (3.5-5.1); Sodium 130 mmol/L (135-145); Total Protein 4.7 g/dl (6.3-8.2); eGFR 56.25
[2025-01-25] MEDS: NSS (PRESERVATIVE FREE) 10 ML IV (08:05)
[2025-01-25] MEDS: ELIQUIS 2.5 MG PO ×2 (08:05→20:10)
[2025-01-25] MEDS: PROTONIX IV 40 MG IV (08:05)
[2025-01-25] MEDS: EFFEXOR XR 225 MG PO (08:05)
[2025-01-25] MEDS: BUSPAR 10 MG PO ×2 (08:05→20:10)
[2025-01-25] MEDS: MS CONTIN (EXTENDED RELEASE) 15 MG PO ×2 (08:05→20:11)
[2025-01-25] MEDS: DESENEX/MITRAZOL/ZEASORB 1 APPLIC TOPICAL ×2 (08:06→20:11)
[2025-01-25] MEDS: NSS 1000 IV (08:09)
[2025-01-25] MEDS: NOVOLOG FLEXPEN-LOW RESISTANCE SC ×3 (08:26→18:21)
[2025-01-25 08:36] LABS: Glucose - Point of Care 119 mg/dl (70-99)
--- NOTE | 2025-01-25 08:39 | W.PN.HOSP.TC ---
Today's Communication/Plan
-
see A/P
Assessment / Plan
Assessment / Plan
HPI: 80-year-old female PMH [id number] diabetes, hypertension, chronic pain requiring opioids, depression, history of spinal stenosis with chronic back pain, history of DVT on Eliquis for DVT prevention; p/w feeling unwell for about a
day.
She was found hypoxic (80's) and hypotensive (SBP 60's) and was placed on BiPAP and started with levo by EMS. She denies to other symptoms, does not endorse to significant cough.
She was taken off BiPAP in the ED and placed on 15L mid flow.
She admits to not taking her meds regularly, except for her opiates
CT Chest:
1. No pulmonary embolism is identified.
2. Bilateral consolidation most consistent with pneumonia, apparently greater in the left lung as compared to the right.
3. Small pulmonary nodules as above, 4 mm diameter. Likely to have a benign etiology given the size. If there are risk factors, consider follow-up scan in 12 months as below.
4. Small hiatal hernia. Ingested material throughout the esophagus consistent with significant dysmotility or reflux.
5. Multiple mild compression deformities of the thoracic spine with probable chronic appearance.
6. Splenic low-attenuation lesions as seen on previous CT abdomen and pelvis.
A/P:
# Likely septic shock POA 2/2 CAP
# Acute hypoxic resp failure POA
# Other end organ damages evidenced by lactic acidosis, elevated trop, HECTOR, all POA
CT Chest noted BL consolidation L > R
Stop further IVF
DCed pressor Levophed
O2 weaned from 15L mid flow to 2L NC today, cont to wean as tolerated, pt not on home O2
blood cultures negative, MRSA screen negative, urine Legionella/Strep Ag negative, COVID/Flu negative
Zosyn/Vanc -> Ceftriaxone
SPL cleared for solid/thin
ID on board
# prerenal HECTOR, resolved
SCr 1.5 -> 1.0 today; baseline 0.8
Monitor off IVF
Monitor SCr
# likely non-TX troponin elevation
# HTN
resume low dose Cardizem 120 mg daily
Cont to hold ASSOCIATE COUNSEL lisinopril
# DM II
A1C 6%
ASSOCIATE COUNSEL metformin
# Depression
Continue Remeron, buspirone and venlafaxine
# history of spinal stenosis with chronic back pain
# opiate dependence
Continue ASSOCIATE COUNSEL morphine 15 mg p.o. twice daily
Cont ASSOCIATE COUNSEL Percocet PRN
# history of DVT on Eliquis
DVT prophylaxis� ASSOCIATE COUNSEL Eliquis
CODE STATUS�full code
left voicemail for daughter
Anticipated Discharge: 24 - 48 hours
Subjective/Interval History
-
Date of Service: January 25, 2025
Objective Data
-
Labs:
Laboratory Results
01/25/25
06:04
WBC 15.0 H
Hgb 9.7 L
Hct 29.3 L
Plt Count 248
Sodium 130 L
Potassium 3.5
Chloride 108 H
Carbon Dioxide 21 L
BUN 21 H
Creatinine 1.0
Glucose 108 H
Calcium 8.1 L
Total Bilirubin 0.3
AST 15
ALT 20
Alkaline Phosphatase 33 L
Vital Signs:
Vital Signs
Temp Pulse Resp BP Pulse Ox
36.5 C 84 17 130/66 92
01/25/25 03:37 01/25/25 06:16 01/25/25 06:16 01/25/25 06:16 01/25/25 04:08
I&O
01/24/25 01/25/25 01/26/25
06:59 06:59 06:59
Intake Total 1330 / 1330
Output Total 650 / 650 175 / 175
Balance -650 / -650 1155 / 1155
Review of Systems
-
History Source: Patient
All other systems: Reviewed and negative
Physical Exam
-
General: Well Developed, Well Nourished, Comfortable, Respiratory Distress, Conversant and Appears Chronically Ill
HEENT: Normocephalic, Atraumatic, Moist Mucous Membranes and Oxygen (2L NC)
Respiratory: Clear to Auscultation and Non Labored Respirations; Negative Accessory Resp Muscle Use
Cardiac: Regular Rhythm and S1/S2
GI: Soft, Nontender and Nondistended
Musculoskeletal: No Clubbing and No Cyanosis
Skin: Warm, Dry and Rash
Neuro: Awake and Alert
Psych: Calm and Intact Judgement/Insight
Data Reviewed
-
CT Scan: Report Reviewed by me
Labs: Labs Reviewed by me
[2025-01-25] MEDS: CARDIZEM CD 120 MG PO (10:11)
--- NOTE | 2025-01-25 10:12 | W.PN.ID1 ---
Date of Service
Date of Service: January 25, 2025
Today's Communication
Continue antibiotics
Assessment / Plan
General malaise
PNA (CAP)
Leukocytosis
Positive blood culture (1 of 4; anaerobic bottle); possible contaminant
HTN
DM
Anxiety/depression
Hx DVT
Chronic low back pain
Recommendations:
Respiratory MRSA PCR screen negative. Vancomycin previously discontinued.
Continue ceftriaxone 2 gm IV q24h
Check sputum culture; collection cup provided to patient.
Legionella and pneumococcal urinary antigen -negative
Trend white count and temperature curve.
Wean O2 as tolerated.
Continue supportive care
����������������������������������������������������������
Chief Complaint
-: Leukocytosis and Pneumonia
Subjective / Review of Systems
Patient seen and examined. Reports ongoing sputum production. Denies shortness of breath at present.
Review of Systems: No Fever, No Chills, Cough and Sputum Production
Vital Signs / Physical Exam
Vital Signs
Vital Signs
Temp Pulse Resp BP Pulse Ox
97.8 F 84 17 130/66 92
01/25/25 07:50 01/25/25 06:16 01/25/25 06:16 01/25/25 06:16 01/25/25 04:08
Physical Exam
Constitutional: Comfortable, Chronically Ill, Non-toxic and Obese
Eyes: Pupils Equal, Pupils Round and Sclera Anicteric
Cardiovascular: S1/S2; Negative S3/S4
Pulmonary: Coarse, Non Labored and Other (Bibasilar crackles)
Gastrointestinal: Soft, Non Tender, Non Distended, Normal Bowel Sounds, No Rebound and No Guarding
Extremities: Edema; Negative Cyanosis or Erythema
Skin: Warm and Dry; Negative Rash or Jaundice
Neurological: Awake and Alert
Psychological: Calm
Objective Data
Lab Data
Lab Results
01/25/25 06:04
01/25/25 06:04
Estimated Creat Clear 34 ml/min 01/25/25 06:04
Lactic Acid Cancelled 01/24/25 05:52
Total Bilirubin 0.3 mg/dl (0.2-1.3) 01/25/25 06:04
AST 15 U/L (14-36) 01/25/25 06:04
ALT 20 U/L (0-35) 01/25/25 06:04
Alkaline Phosphatase 33 U/L (38-126) L 01/25/25 06:04
Most recent labs reviewed.
Micro Results:
01/23/25 14:44 Blood Culture - Preliminary
Blood/Venous Positive culture in progress
Gram Stain - GPC's in clusters (LIVAN bottle)
01/24/25 06:46 Legionella Urinary Antigen - Final
Urine Negative for Legionella pneumophila Serogroup 1 antigen.
A negative result does not rule out the possiblity of
Legionella infection due to other serogroups or species of
Legionella. Clinical correlation is recommended.
Streptococcus pneumoniae Antigen (M - Final
Negative for Streptococcus pneumoniae antigen.
A negative result does not exclude infection with
Streptococcus pneumoniae. Clinical correlation is
recommended.
01/23/25 14:44 Blood Culture - Preliminary
Blood/Venous No Growth in 24 hours- Final report to follow
01/23/25 16:52 Nasal Screen MRSA (PCR) - Final
Nose MRSA not detected - performed by PCR methodology.
01/23/25 16:52 Influenza Types A & B (TONIO) - Final
Nasal Swab Negative for Influenza A & B, NAAT
Negative results must be combined with clinical observations
and patient history.
Nucleic Acid Amplification test (NAAT)performed on the
[employer] platform.
Imaging:
01/23/2025 CT chest (PE study): no pulmonary embolism identified. There is bilateral consolidation consistent with pneumonia, greater in the left lung as compared to the right. There are small pulmonary nodules noted. A small hiatal hernia is
noted. Ingested material throughout the esophagus is consistent with significant dysmotility or reflux. There are multiple mild compression deformities of the thoracic spine with probable chronic appearance. Please see full dictation for
additional detail. Film personally viewed.
01/23/2025 CXR (portable): consolidation throughout the left lung seen on CT is indistinct in the study. There is a small amount of consolidation over the right lower lung. Please see full dictation for additional detail.
[2025-01-25 12:31] LABS: Glucose - Point of Care 128 mg/dl (70-99)
--- NOTE | 2025-01-25 12:36 | PTCARENOTE ---
Got up to BSC/recliner chair- c/o dizziness when standing. Sitting bp 155/77 84 standing bp 123/[address] Devan NAIDU.
[2025-01-25] MEDS: STERILE WATER FOR INJECTION 20 ML IV (14:14)
[2025-01-25] MEDS: ROCEPHIN 2000 MG IV (14:14)
--- NOTE | 2025-01-25 16:24 | PTCARENOTE ---
OOB all day, O2 at 2L NC 94% - 89% on RAIR. SR on tele. Continent voided on bsc. No stool today- refused med intervention - will order prune juice on her trays. PRN Percocet given x1 this shift for chronic back pain. Report given to Tayo
transfer to [id number].
[2025-01-25 16:48] LABS: Glucose - Point of Care 186 mg/dl (70-99)
--- NOTE | 2025-01-25 16:48 | CM ---
F/U: Patient was seen by PT/OT and recommended SNF, but when DENEEN Bañuelos met with patient, she refused. Patient would not allow me to call any family, 'she' wants to tell her , son, and 3 daughters her decision for Home and not SNF.
PLAN: Home w/ [facility] for Home PT.
[2025-01-25] MEDS: REMERON 15 MG PO (20:10)
[2025-01-25] MEDS: DESYREL 150 MG PO (20:10)
[2025-01-25 23:06] LABS: Glucose - Point of Care 96 mg/dl (70-99)
[2025-01-26] MEDS: EFFEXOR XR 225 MG PO (07:25)
[2025-01-26] MEDS: NSS (PRESERVATIVE FREE) 10 ML IV (07:26)
[2025-01-26] MEDS: BUSPAR 10 MG PO ×2 (07:26→20:58)
[2025-01-26] MEDS: CARDIZEM CD 120 MG PO (07:26)
[2025-01-26] MEDS: MS CONTIN (EXTENDED RELEASE) 15 MG PO ×2 (07:26→21:02)
[2025-01-26] MEDS: PROTONIX IV 40 MG IV (07:26)
[2025-01-26] MEDS: ELIQUIS 2.5 MG PO ×2 (07:26→20:58)
[2025-01-26 07:27] LABS: Glucose - Point of Care 101 mg/dl (70-99)
[2025-01-26] MEDS: NOVOLOG FLEXPEN-LOW RESISTANCE SC (07:27)
[2025-01-26] MEDS: DESENEX/MITRAZOL/ZEASORB 1 APPLIC TOPICAL ×2 (07:27→20:58)
--- NOTE | 2025-01-26 07:46 | W.PN.HOSP.TC ---
Addendum entered and electronically signed by Shayy Hartman MD 01/26/25 12:58:
noted BP trending up, resume prior to admission Cardizem and lisinopril with holding parameters
Addendum entered and electronically signed by Shayy Hartman MD 01/26/25 12:01:
# Stage 1 bilateral heel pressure injuries.
# Hyponatremia
Original Note:
Today's Communication/Plan
-
see A/P
Assessment / Plan
Assessment / Plan
HPI: 80-year-old female PMH [id number]-youzlyhra diabetes, hypertension, chronic pain requiring opioids, depression, history of spinal stenosis with chronic back pain, history of DVT on Eliquis for DVT prevention; p/w feeling unwell for about a
day.
She was found hypoxic (80's) and hypotensive (SBP 60's) and was placed on BiPAP and started with levo by EMS. She denies to other symptoms, does not endorse to significant cough.
She was taken off BiPAP in the ED and placed on 15L mid flow.
She admits to not taking her meds regularly, except for her opiates
CT Chest:
1. No pulmonary embolism is identified.
2. Bilateral consolidation most consistent with pneumonia, apparently greater in the left lung as compared to the right.
3. Small pulmonary nodules as above, 4 mm diameter. Likely to have a benign etiology given the size. If there are risk factors, consider follow-up scan in 12 months as below.
4. Small hiatal hernia. Ingested material throughout the esophagus consistent with significant dysmotility or reflux.
5. Multiple mild compression deformities of the thoracic spine with probable chronic appearance.
6. Splenic low-attenuation lesions as seen on previous CT abdomen and pelvis.
A/P:
# Septic shock POA 2/2 CAP
# Acute hypoxic resp failure POA, improving
# Other end organ damages evidenced by lactic acidosis, elevated trop, HECTOR, all POA
CT Chest noted BL consolidation L > R
Off pressor, off IVF
O2 weaned from 15L mid flow to 2L NC, cont to wean as tolerated, pt not on home O2
blood cultures negative, MRSA screen negative, urine Legionella/Strep Ag negative, COVID/Flu negative
Zosyn/Vanc -> Ceftriaxone per ID
SPL cleared for solid/thin
# prerenal HECTOR, resolved
SCr 1.5 -> 1.0; baseline 0.8
Monitor off IVF
Monitor SCr
# non-MT troponin elevation
# HTN
resume low dose Cardizem 120 mg daily
Cont to hold DROP PRESS HAND lisinopril
# DM II
A1C 6%
DROP PRESS HAND metformin
# Depression
Continue Remeron, buspirone and venlafaxine
# history of spinal stenosis with chronic back pain
# opiate dependence
Continue DROP PRESS HAND morphine 15 mg p.o. twice daily
Cont DROP PRESS HAND Percocet PRN
# history of DVT on Eliquis
DVT prophylaxis� DROP PRESS HAND Eliquis
CODE STATUS�full code
Dispo: PT recc SNF
Anticipated Discharge: 24 - 48 hours
Subjective/Interval History
-
Date of Service: January 26, 2025
Objective Data
-
Labs:
Laboratory Results
01/26/25
07:02
WBC Pending
Hgb Pending
Hct Pending
Plt Count Pending
Sodium Pending
Potassium Pending
Chloride Pending
Carbon Dioxide Pending
BUN Pending
Creatinine Pending
Glucose Pending
Calcium Pending
Total Bilirubin Pending
AST Pending
ALT Pending
Alkaline Phosphatase Pending
Vital Signs:
Vital Signs
Temp Pulse Resp BP Pulse Ox
36.4 C 95 18 146/82 95
01/25/25 23:24 01/25/25 23:24 01/25/25 23:24 01/25/25 23:24 01/25/25 23:24
I&O
01/25/25 01/26/25 01/27/25
06:59 06:59 06:59
Intake Total 1330 / 1330 600 / 600
Output Total 175 / 175 450 / 450
Balance 1155 / 1155 150 / 150
Review of Systems
-
History Source: Patient
All other systems: Reviewed and negative
Physical Exam
-
General: Well Developed, Well Nourished, Comfortable, Respiratory Distress, Conversant and Appears Chronically Ill
HEENT: Normocephalic, Atraumatic, Moist Mucous Membranes and Oxygen (2L NC)
Respiratory: Clear to Auscultation and Non Labored Respirations; Negative Accessory Resp Muscle Use
Cardiac: Regular Rhythm and S1/S2
GI: Soft, Nontender and Nondistended
Musculoskeletal: No Clubbing and No Cyanosis
Skin: Warm, Dry and Rash
Neuro: Awake and Alert
Psych: Calm and Intact Judgement/Insight
Data Reviewed
-
CT Scan: Report Reviewed by me
Labs: Labs Reviewed by me
[2025-01-26 08:11] VITALS: BP 182/111
[2025-01-26 08:22] LABS: ALT (SGPT) 20 U/L (0-35); AST (SGOT) 19 U/L (14-36); Albumin 2.8 g/dl (3.5-5.0); Alkaline Phosphatase 44 U/L (38-126); Blood Urea Nitrogen 12 mg/dl (7-17); Calcium 9.0 mg/dl (8.4-10.2); Carbon Dioxide 22 mmol/L (22-30); Chloride 105 mmol/L (98-107); Estimated Creatinine Clearance 57 ml/min; Glucose 90 mg/dl (70-99); Potassium 3.6 mmol/L (3.5-5.1); Sodium 132 mmol/L (135-145); Total Protein 5.4 g/dl (6.3-8.2); eGFR > 60.00
[2025-01-26 08:34] LABS: Hematocrit 35.4 % (37.0-47.0); Hemoglobin 11.4 g/dL (12.0-16.0); Mean Corp Hgb Conc. 32.2 g/dL (33.0-37.0); Mean Corpuscular Volume 91.2 fL (81.0-99.0); Nucleated Red Blood Cells % 0 %; Platelet Count 292 10^3/uL (130-400); Red Cell Dist. Width 15.3 % (11.5-14.5)
[2025-01-26 11:08] LABS: Glucose - Point of Care 195 mg/dl (70-99)
--- NOTE | 2025-01-26 11:12 | PN.CDI ---
CDI
- -
CDI:
Physician Documentation Request
Admit Date: 01/23/25 17:05
Dear Doctor Devan,
Patient admitted with sepsis.
01/25 Nursing skin assessment, 'Stage 1 bilateral heel pressure injuries.'
Physician documentation of the type and location of wounds is required for compliant documentation. Based on the above clinical findings and your assessment, please provide the following in your progress note:
Type (etiology) of ulcer/wound:
- Pressure (decubitus) ulcer
- Other
- Unable to determine
For a pressure ulcer, please also include the stage* of the ulcer:
- Stage 1 - Skin intact, non-blanchable redness
- Stage 2 - Partial thickness loss of dermis, includes intact or open blister
- Stage 3 - Full thickness tissue not including bone, tendon or muscle
- Stage 4 - Full thickness tissue loss, including exposed bone, tendon or muscle
- Unstageable - Full thickness loss in which the base of the ulcer is covered by slough (yellow, rosario, pascual, green or brown) and/or eschar (rosario, brown or black) in the wound bed.
- Unable to determine
Use of terms such as suspected, likely, concern for, or probable (associated with a specific diagnosis that is being evaluated, monitored, or treated as if it exists) are acceptable and can be coded in the inpatient setting, when documented at the
time of discharge.
Thank you,
Lexi JACK,RN,CCDS
CDI Specialist
Available via tiger text
Please use your independent medical judgment in providing your response.
*Source: National Pressure Ulcer Advisory Panel (NPUAP)
--- NOTE | 2025-01-26 11:46 | PN.CDI ---
CDI
- -
CDI:
Physician Documentation Request
Admit Date: 01/23/25 17:05
Dear Doctor Devan,
Patient admitted with sepsis.
Patient received IV NSS.
Na levels documented below:
Laboratory Tests
01/23/25 01/24/25 01/25/25
14:44 06:11 06:04
Sodium 130 L 130 L 130 L
01/26/25
07:02
Sodium 132 L
Based on the above, could you clarify in the progress notes, the appropriate diagnosis, if significant, that supports the above abnormalities and additional evaluation, monitoring and/or treatment rendered:
Hyponatremia
Insignificant abnormal lab findings
Other
Use of terms such as suspected, likely, concern for, or probable (associated with a specific diagnosis that is being evaluated, monitored, or treated as if it exists) are acceptable and can be coded in the inpatient setting, when documented at the
time of discharge.
Thank you,
Lexi JACK,RN,CCDS
CDI Specialist
Available via Merrill text
Please use your independent medical judgment in providing your response.
[2025-01-26] MEDS: PERCOCET 5/325 1 TABLET PO ×2 (12:24→18:33)
[2025-01-26 13:17] VITALS: BP 162/87
[2025-01-26] MEDS: NOVOLOG FLEXPEN-LOW RESISTANCE 1 UNITS SC ×2 (13:18→17:08)
[2025-01-26] MEDS: ZESTRIL 40 MG PO (13:44)
[2025-01-26] MEDS: CARDIZEM CD 180 MG PO (13:44)
[2025-01-26] MEDS: ROCEPHIN 2000 MG IV (13:45)
[2025-01-26] MEDS: STERILE WATER FOR INJECTION 20 ML IV (13:45)
--- NOTE | 2025-01-26 13:55 | W.PN.ID1 ---
Date of Service
Date of Service: January 26, 2025
Today's Communication
Continue antibiotics. Follow WBC, temp curve and pending cultures.
Assessment / Plan
General malaise
PNA (CAP)
Leukocytosis
Positive blood culture (1 of 4; anaerobic bottle); possible contaminant
HTN
DM
Anxiety/depression
Hx DVT
Chronic low back pain
Recommendations:
Respiratory MRSA PCR screen negative. Vancomycin previously discontinued. Sputum culture with only usual respiratory simona.
Continue ceftriaxone 2 gm IV q24h
Legionella and pneumococcal urinary antigen -negative
Trend white count and temperature curve. Upward trend of white count noted today.
Wean O2 as tolerated.
Continue supportive care
����������������������������������������������������������
Chief Complaint
-: Leukocytosis and Pneumonia
Subjective / Review of Systems
Patient seen and examined. Reports ongoing sputum production. Denies shortness of breath.
Review of Systems: No Fever, No Chills, Cough and Sputum Production
Vital Signs / Physical Exam
Vital Signs
Vital Signs
Temp Pulse Resp BP Pulse Ox
98.4 F 84 19 162/87 95
01/26/25 08:11 01/26/25 13:17 01/26/25 08:11 01/26/25 13:17 01/26/25 08:11
Physical Exam
Constitutional: Comfortable, Chronically Ill and Non-toxic
Cardiovascular: S1/S2; Negative S3/S4
Pulmonary: Coarse, Non Labored and Other (Bibasilar crackles)
Gastrointestinal: Soft, Non Tender, Non Distended, Normal Bowel Sounds, No Rebound and No Guarding
Extremities: Edema; Negative Cyanosis or Erythema
Skin: Negative Rash or Jaundice
Neurological: Awake and Alert
Psychological: Calm
Objective Data
Lab Data
Lab Results
01/26/25 07:02
01/26/25 07:02
Estimated Creat Clear 57 ml/min 01/26/25 07:02
Lactic Acid Cancelled 01/24/25 05:52
Total Bilirubin 0.4 mg/dl (0.2-1.3) 01/26/25 07:02
AST 19 U/L (14-36) 01/26/25 07:02
ALT 20 U/L (0-35) 01/26/25 07:02
Alkaline Phosphatase 44 U/L (38-126) 01/26/25 07:02
Most recent labs reviewed.
Micro Results:
01/25/25 14:30 Respiratory Culture - Preliminary
Sputum Usual Respiratory Simona
Gram Stain - Preliminary
01/23/25 14:44 Blood Culture - Preliminary
Blood/Venous Coagulase neg. staphylococcus
Additional testing on request
Gram Stain - Preliminary
01/23/25 14:44 Blood Culture - Preliminary
Blood/Venous No Growth in 48 hours- Final report to follow
01/24/25 06:46 Legionella Urinary Antigen - Final
Urine Negative for Legionella pneumophila Serogroup 1 antigen.
A negative result does not rule out the possiblity of
Legionella infection due to other serogroups or species of
Legionella. Clinical correlation is recommended.
Streptococcus pneumoniae Antigen (M - Final
Negative for Streptococcus pneumoniae antigen.
A negative result does not exclude infection with
Streptococcus pneumoniae. Clinical correlation is
recommended.
01/23/25 16:52 Nasal Screen MRSA (PCR) - Final
Nose MRSA not detected - performed by PCR methodology.
01/23/25 16:52 Influenza Types A & B (TONIO) - Final
Nasal Swab Negative for Influenza A & B, NAAT
Negative results must be combined with clinical observations
and patient history.
Nucleic Acid Amplification test (NAAT)performed on the
[employer] platform.
Imaging:
01/23/2025 CT chest (PE study): no pulmonary embolism identified. There is bilateral consolidation consistent with pneumonia, greater in the left lung as compared to the right. There are small pulmonary nodules noted. A small hiatal hernia is
noted. Ingested material throughout the esophagus is consistent with significant dysmotility or reflux. There are multiple mild compression deformities of the thoracic spine with probable chronic appearance. Please see full dictation for
additional detail. Film personally viewed.
01/23/2025 CXR (portable): consolidation throughout the left lung seen on CT is indistinct in the study. There is a small amount of consolidation over the right lower lung. Please see full dictation for additional detail.
--- NOTE | 2025-01-26 14:06 | VNURNOTE ---
Chart reviewed. Appears that patient refusing SNF. PM [facility] Resumption referral placed in [facility].
[2025-01-26 15:39] VITALS: BP 157/75
--- NOTE | 2025-01-26 15:49 | CM ---
Reviewed PT eval with -pt and dgt in room .
Dgt convinced patient to accept SNF .
Tyrese Ibarra Pt requested SNF referrals placed inc are port.
Will need auth
PLAN Locate SNF obtain Auth
--- NOTE | 2025-01-26 16:13 | WOUNDNOTE ---
WOC RN NOTE: Patient visited to follow up on stage 1 PI to bilateral heels noted during Prevalence study today. Upon assessment, bilateral heels are blanchable red. Heel foams replaced. Will sign off.
[2025-01-26 16:52] VITALS: BP 128/74; PULSE 81; O2SAT 93
[2025-01-26 16:54] LABS: Glucose - Point of Care 190 mg/dl (70-99)
[2025-01-26] MEDS: DESYREL 150 MG PO (21:02)
[2025-01-26] MEDS: REMERON 15 MG PO (21:21)
[2025-01-26 21:55] LABS: Glucose - Point of Care 170 mg/dl (70-99)
[2025-01-26 23:07] VITALS: BP 143/73
[2025-01-27] MEDS: PERCOCET 5/325 1 TABLET PO ×4 (04:27→21:05)
[2025-01-27 07:00] VITALS: BP 143/71
[2025-01-27 07:06] LABS: Hematocrit 30.6 % (37.0-47.0); Hemoglobin 10.2 g/dL (12.0-16.0); Mean Corp Hgb Conc. 33.3 g/dL (33.0-37.0); Mean Corpuscular Volume 86.2 fL (81.0-99.0); Nucleated Red Blood Cells % 0 %; Platelet Count 320 10^3/uL (130-400); Red Cell Dist. Width 15.0 % (11.5-14.5)
[2025-01-27 07:17] LABS: ALT (SGPT) 19 U/L (0-35); AST (SGOT) 18 U/L (14-36); Albumin 2.6 g/dl (3.5-5.0); Alkaline Phosphatase 34 U/L (38-126); Blood Urea Nitrogen 10 mg/dl (7-17); Calcium 8.5 mg/dl (8.4-10.2); Carbon Dioxide 26 mmol/L (22-30); Chloride 103 mmol/L (98-107); Estimated Creatinine Clearance 49 ml/min; Glucose 110 mg/dl (70-99); Potassium 3.6 mmol/L (3.5-5.1); Sodium 132 mmol/L (135-145); Total Protein 5.0 g/dl (6.3-8.2); eGFR > 60.00
[2025-01-27 07:32] LABS: Glucose - Point of Care 108 mg/dl (70-99)
[2025-01-27] MEDS: ELIQUIS 2.5 MG PO ×2 (08:22→19:48)
[2025-01-27] MEDS: EFFEXOR XR 225 MG PO (08:23)
[2025-01-27] MEDS: CARDIZEM CD 300 MG PO (08:23)
[2025-01-27] MEDS: DESENEX/MITRAZOL/ZEASORB 1 APPLIC TOPICAL ×2 (08:23→19:52)
[2025-01-27] MEDS: MS CONTIN (EXTENDED RELEASE) 15 MG PO ×2 (08:23→19:48)
[2025-01-27] MEDS: ZESTRIL 40 MG PO (08:23)
[2025-01-27] MEDS: BUSPAR 10 MG PO ×2 (08:23→19:48)
[2025-01-27] MEDS: PROTONIX 40 MG PO (08:23)
[2025-01-27] MEDS: NOVOLOG FLEXPEN-LOW RESISTANCE SC ×2 (08:25→11:56)
[2025-01-27 10:29] VITALS: BP 134/65; PULSE 72; O2SAT 94
[2025-01-27 11:52] LABS: Glucose - Point of Care 139 mg/dl (70-99)
--- NOTE | 2025-01-27 12:24 | W.PN.HOSP.TC ---
Today's Communication/Plan
-
Still on IV antibiotics, defer to ID on changing to p.o.
SNF placement Still pending
Assessment / Plan
Assessment / Plan
HPI: 80-year-old female PMH [id number] diabetes, hypertension, chronic pain requiring opioids, depression, history of spinal stenosis with chronic back pain, history of DVT on Eliquis for DVT prevention; p/w feeling unwell for about a
day.
She was found hypoxic (80's) and hypotensive (SBP 60's) and was placed on BiPAP and started with levo by EMS. She denies to other symptoms, does not endorse to significant cough.
She was taken off BiPAP in the ED and placed on 15L mid flow.
She admits to not taking her meds regularly, except for her opiates
A/P:
# Septic shock POA 2/2 CAP
# Acute hypoxic resp failure POA, improving
# Other end organ damages evidenced by lactic acidosis, elevated trop, HECTOR, all POA
CT Chest noted BL consolidation L > R
Off pressor, off IVF
O2 weaned from 15L mid flow to 2L NC, cont to wean as tolerated, pt not on home O2
blood cultures coag neg staph, on 01/23 and 1 out of 2, MRSA screen negative, urine Legionella/Strep Ag negative, COVID/Flu negative
Zosyn/Vanc -> Ceftriaxone per ID. Today is day 5 of antibiotics
SPL cleared for solid/thin
# prerenal HECTOR, resolved
SCr 1.5 -> 1.0; baseline 0.8
Monitor off IVF
Monitor SCr
# non-OH troponin elevation
# HTN
resumed Cardizem
BP better controlled
Cont lisinopril
# DM II
A1C 6%
SSI
PIPE STRAIGHTENER metformin hold while inpatient
BG control
# Depression
Continue Remeron, buspirone and venlafaxine
# history of spinal stenosis with chronic back pain
# opiate dependence
Continue PIPE STRAIGHTENER morphine 15 mg p.o. twice daily
Cont PIPE STRAIGHTENER Percocet PRN
# history of DVT on Eliquis
DVT prophylaxis� PIPE STRAIGHTENER Eliquis
CODE STATUS�full code
Dispo: PT rec SNF, referrals placed, pending acceptance
Anticipated Discharge: 24 - 48 hours
Subjective/Interval History
-
Date of Service: January 27, 2025
Patient states she is tired, denies any acute issues overnight. Notes chronic back pain
Objective Data
-
Labs:
Laboratory Results
01/27/25
05:55
WBC 11.5 H
Hgb 10.2 L
Hct 30.6 L
Plt Count 320
Sodium 132 L
Potassium 3.6
Chloride 103
Carbon Dioxide 26
BUN 10
Creatinine 0.7
Glucose 110 H
Calcium 8.5
Total Bilirubin 0.2
AST 18
ALT 19
Alkaline Phosphatase 34 L
Vital Signs:
Vital Signs
Temp Pulse Resp BP Pulse Ox
98.3 F 71 16 143/71 95
01/27/25 07:00 01/27/25 08:23 01/27/25 07:00 01/27/25 08:23 01/27/25 07:00
I&O
01/26/25 01/27/25 01/28/25
06:59 06:59 06:59
Intake Total 600 / 600 480 / 480
Output Total 450 / 450
Balance 150 / 150 480 / 480
Review of Systems
-
History Source: Patient
All other systems: Reviewed and negative
Physical Exam
-
General: No Apparent Distress
HEENT: Moist Mucous Membranes, Anicteric and PERRLA
Respiratory: Clear to Auscultation and Rales; Negative Wheezes or Rhonchi
Cardiac: Regular Rhythm and S1/S2; Negative Murmur, Rub or Gallop
GI: Soft, Nontender, Nondistended and Normal Bowel Sounds
Musculoskeletal: No Edema
Skin: Warm and Dry; Negative Rash, Ulcers or Lesions
Neuro: Awake and AO x 3
Hematologic / Lymphatic: No Lymphadenopathy
Psych: Calm
Data Reviewed
-
CT Scan: Report Reviewed by me
Labs: Labs Reviewed by me
--- NOTE | 2025-01-27 12:57 | CM ---
CM reviewed chart, patient seen in chair, remains on O2.
CM discussed at this time, no response from [facility], [facility] will have a bed tomorrow. Patient agreeable to [facility].
Auth submitted via [employer]- pending reference #[id number], faxed to [phone].
Patient will require ambulance transport upon d/c.
CM will continue to follow for d/c needs.
Plan; [facility], tomorrow 01/28, pending auth-call nursing tipple supervisor with auth
[facility]
Report: [phone]
--- NOTE | 2025-01-27 13:19 | W.PN.ID1 ---
Date of Service
Date of Service: January 27, 2025
Today's Communication
Continue antibiotics. Transition to oral cefdinir. See below�
Assessment / Plan
General malaise
PNA (CAP)
Leukocytosis
Positive blood culture (1 of 4; anaerobic bottle); possible contaminant
HTN
DM
Anxiety/depression
Hx DVT
Chronic low back pain
Recommendations:
Respiratory MRSA PCR screen negative. Vancomycin previously discontinued. Sputum culture with only usual respiratory simona.
White count improved today.
Transition to oral cefdinir, to continue through 02/03/25
Legionella and pneumococcal urinary antigen -negative
Trend white count and temperature curve.
Wean O2 as tolerated.
Continue supportive care
����������������������������������������������������������
Chief Complaint
-: Leukocytosis and Pneumonia
Subjective / Review of Systems
Review of Systems: No Fever
Vital Signs / Physical Exam
Vital Signs
Vital Signs
Temp Pulse Resp BP Pulse Ox
98.3 F 71 16 143/71 95
01/27/25 07:00 01/27/25 08:23 01/27/25 07:00 01/27/25 08:23 01/27/25 07:00
Physical Exam
Constitutional: Comfortable, Chronically Ill and Non-toxic
Cardiovascular: S1/S2; Negative S3/S4
Pulmonary: Coarse, Non Labored and Other (Bibasilar crackles)
Gastrointestinal: Soft, Non Tender, Non Distended, Normal Bowel Sounds, No Rebound and No Guarding
Extremities: Edema; Negative Cyanosis or Erythema
Skin: Negative Rash or Jaundice
Psychological: Calm
Objective Data
Lab Data
Lab Results
01/27/25 05:55
01/27/25 05:55
Estimated Creat Clear 49 ml/min 01/27/25 05:55
Lactic Acid Cancelled 01/24/25 05:52
Total Bilirubin 0.2 mg/dl (0.2-1.3) 01/27/25 05:55
AST 18 U/L (14-36) 01/27/25 05:55
ALT 19 U/L (0-35) 01/27/25 05:55
Alkaline Phosphatase 34 U/L (38-126) L 01/27/25 05:55
Most recent labs reviewed.
Micro Results:
01/25/25 14:30 Respiratory Culture - Final
Sputum Usual Respiratory Simona
Gram Stain - Final
01/23/25 14:44 Blood Culture - Preliminary
Blood/Venous Coagulase neg. staphylococcus
Additional testing on request
Gram Stain - Preliminary
01/23/25 14:44 Blood Culture - Preliminary
Blood/Venous No Growth in 72 hours- Final report to follow
01/24/25 06:46 Legionella Urinary Antigen - Final
Urine Negative for Legionella pneumophila Serogroup 1 antigen.
A negative result does not rule out the possiblity of
Legionella infection due to other serogroups or species of
Legionella. Clinical correlation is recommended.
Streptococcus pneumoniae Antigen (M - Final
Negative for Streptococcus pneumoniae antigen.
A negative result does not exclude infection with
Streptococcus pneumoniae. Clinical correlation is
recommended.
01/23/25 16:52 Nasal Screen MRSA (PCR) - Final
Nose MRSA not detected - performed by PCR methodology.
01/23/25 16:52 Influenza Types A & B (TONIO) - Final
Nasal Swab Negative for Influenza A & B, NAAT
Negative results must be combined with clinical observations
and patient history.
Nucleic Acid Amplification test (NAAT)performed on the
[employer] platform.
Imaging:
01/23/2025 CT chest (PE study): no pulmonary embolism identified. There is bilateral consolidation consistent with pneumonia, greater in the left lung as compared to the right. There are small pulmonary nodules noted. A small hiatal hernia is
noted. Ingested material throughout the esophagus is consistent with significant dysmotility or reflux. There are multiple mild compression deformities of the thoracic spine with probable chronic appearance. Please see full dictation for
additional detail. Film personally viewed.
01/23/2025 CXR (portable): consolidation throughout the left lung seen on CT is indistinct in the study. There is a small amount of consolidation over the right lower lung. Please see full dictation for additional detail.
Chest X-Ray: Image Reviewed and Report Reviewed
[2025-01-27] MEDS: OMNICEF 300 MG PO ×2 (14:10→19:48)
[2025-01-27 15:51] VITALS: BP 134/66
[2025-01-27 16:40] LABS: Glucose - Point of Care 175 mg/dl (70-99)
[2025-01-27] MEDS: NOVOLOG FLEXPEN-LOW RESISTANCE 1 UNITS SC (18:39)
[2025-01-27] MEDS: DESYREL 150 MG PO (21:05)
[2025-01-27] MEDS: REMERON 15 MG PO (21:06)
[2025-01-27 21:23] LABS: Glucose - Point of Care 154 mg/dl (70-99)
[2025-01-27 23:46] VITALS: BP 145/68
[2025-01-28 07:08] LABS: Hematocrit 33.5 % (37.0-47.0); Hemoglobin 10.7 g/dL (12.0-16.0); Mean Corp Hgb Conc. 31.9 g/dL (33.0-37.0); Mean Corpuscular Volume 87.9 fL (81.0-99.0); Nucleated Red Blood Cells % 0 %; Platelet Count 355 10^3/uL (130-400); Red Cell Dist. Width 15.0 % (11.5-14.5)
[2025-01-28 07:12] VITALS: BP 140/65
[2025-01-28 07:27] LABS: ALT (SGPT) 17 U/L (0-35); AST (SGOT) 17 U/L (14-36); Albumin 2.7 g/dl (3.5-5.0); Alkaline Phosphatase 33 U/L (38-126); Blood Urea Nitrogen 13 mg/dl (7-17); Calcium 8.8 mg/dl (8.4-10.2); Carbon Dioxide 25 mmol/L (22-30); Chloride 102 mmol/L (98-107); Estimated Creatinine Clearance 49 ml/min; Glucose 108 mg/dl (70-99); Potassium 4.0 mmol/L (3.5-5.1); Sodium 133 mmol/L (135-145); Total Protein 5.0 g/dl (6.3-8.2); eGFR > 60.00
[2025-01-28 08:08] LABS: Glucose - Point of Care 109 mg/dl (70-99)
--- NOTE | 2025-01-28 08:16 | PTCARENOTE ---
pt sleepy this am, loose bus person dishwasher cough, c/o of chronic leg pain,see mar. pt oob to commode with assist this am. awaiting breakfast. call robin in reach
[2025-01-28] MEDS: NOVOLOG FLEXPEN-LOW RESISTANCE SC ×2 (08:23→17:31)
[2025-01-28] MEDS: ZESTRIL 40 MG PO (08:23)
[2025-01-28] MEDS: PROTONIX 40 MG PO (08:23)
[2025-01-28] MEDS: EFFEXOR XR 225 MG PO (08:24)
[2025-01-28] MEDS: OMNICEF 300 MG PO ×2 (08:26→20:22)
[2025-01-28] MEDS: MS CONTIN (EXTENDED RELEASE) 15 MG PO ×2 (08:26→20:21)
[2025-01-28] MEDS: CARDIZEM CD 300 MG PO (08:26)
[2025-01-28] MEDS: BUSPAR 10 MG PO ×2 (08:26→20:21)
[2025-01-28] MEDS: ELIQUIS 2.5 MG PO ×2 (08:27→20:21)
--- NOTE | 2025-01-28 10:20 | W.DCSUMMARY ---
Discharge Summary
Discharge Data
Date of Admission: 01/23/25
Date of Discharge: 01/28/25
Total time spent discharging patient (in min): 51
-
Pending Results: No
Hospital Course
Discharge diagnosis:
Community Acquired pneumonia (CAP)
Septic shock Present on admit 2/2 CAP
Acute hypoxic resp failure Present on admit from CAP
End organ damages evidenced by lactic acidosis, elevated trop, HECTOR, all POA
prerenal HECTOR,
troponin elevation from acute illness, supply demand mismatch
Diagnosis present prior to admit:
dfz-bmqmove-cssehuayg diabetes,
essential hypertension,
chronic pain requiring opioids,
depression,
history of spinal stenosis with chronic back pain,
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
s/p Cholecystectomy, , Spinal surgery
Initial presentation and hospital course by problem:
80-year-old woman with a PMH described above, presented after feeling unwell for about a day. She was found hypoxic (80's) and hypotensive (SBP 60's) and was placed on BiPAP and started with levo by EMS. She denied other symptoms, and did not
endorse to significant cough. She was taken off BiPAP in the ED and placed on 15L mid flow. She admited to not taking her meds regularly, except for her opiates.
1. Septic shock POA /2 CAP, complicated by:
Acute hypoxic resp failure POA
end organ damages evidenced by lactic acidosis, elevated trop, HECTOR, all POA
A CT Chest showed BL consolidation L > R. She responded to antibiotics and was taken Off pressor, off IVF. Her O2 supplementation was weaned from 15L mid flow to 2L NC, which she continues to wean as tolerated. Of note the pt is not on home O2.
Her blood cultures showed coag neg staph, on 01/23 and 1 out of 2, (this was thought to be a contaminant by ID). Her MRSA screen was negative, as was her urine Legionella/Strep Ag. Lastly, her COVID/Flu tests were negative as well. The initial
Zosyn/Vanc was transitioned to Ceftriaxone, and then to oral cefdinir. The cefdinir is to be continued until 02/03/25. She had a SPL evaluation and was cleared for solid/thin. She continue to have occasional cough, but is stable enough to
continue the rest of her recovery at a SNF.
2. prerenal HECTOR, resolved
SCr 1.5 -> 0.7; her baseline is 0.8
3. Non-ACS troponin elevation. No chest pain or further symptoms during admit.
4. Essential HTN - chronic
She was resumed on her ususal dose Cardizem
Her BP became better controlled
We recommend to Continue the outpatient lisinopril as well.
5. Non-insulin dependent DM II with an A1C of 6%
The CIRCULAR STUFFER metformin was on hold while inpatient. This can be resumed at discharge given renal function is back to baseline.
6. Depression - chronic
Continue Remeron, buspirone and venlafaxine
She appears to be in a reasonable mood at time of discharge
7. history of spinal stenosis with chronic back pain, complicated by opiate dependence
Continue CIRCULAR STUFFER morphine 15 mg p.o. twice daily
Cont CIRCULAR STUFFER Percocet PRN
8. 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
DVT prophylaxis while in hospital was the CIRCULAR STUFFER Eliquis
CODE STATUS while in hospital was full code
Physical exam at day of discharge:
General: No Apparent Distress
HEENT: Moist Mucous Membranes
Respiratory: Clear to Auscultation with a few scattered Rhonchi
Cardiac: Regular Rhythm and S1/S2
GI: Soft, Nontender, Nondistended
Musculoskeletal: No Edema
Skin: Warm and Dry
Neuro: Awake
Psych: Calm
Discharge Plan
-
Patient Disposition: Usp/SNF
Discharge Diagnosis/Procedures: Pneumonia
Diet: Regular
Activity: As tolerated
Driving Restrictions: As prior to admission
Referrals:
Carissa Barreto MD [Family Provider, [facility]]
Additional Discharge Medication Instructions: oral cefdinir, to continue through 02/03/25
Prescriptions:
New
cefdinir 300 mg Capsule
300 mg PO Q12 Qty: 0 0RF
Continued
fenofibrate nanocrystallized 145 MG tablet
145 mg PO DAILY
buspirone 10 mg Tablet
10 mg PO BID
Eliquis 2.5 mg Tablet
2.5 mg PO BID
montelukast [Singulair] 10 mg Tablet
10 mg PO DAILY
mirtazapine 15 mg Tablet
15 mg PO HS
lisinopril [Zestril] 40 mg Tablet
40 mg PO DAILY
trazodone 150 mg Tablet
150 mg PO HS Qty: 7 0RF
venlafaxine 225 mg tablet extended release 24hr
225 mg PO DAILY Qty: 30 0RF
metformin 500 mg Tablet
500 mg PO DAILY
morphine 15 mg tablet extended release
15 mg PO BID Qty: 4 0RF
Rx Instructions:
Hold for sedation
oxycodone-acetaminophen 5-325 mg Tablet
1 tab PO Q4HPRN PRN (Reason: severe pain) Qty: 5 0RF
diltiazem HCl [Cartia XT] 300 mg capsule,extended release 24hr
300 mg PO DAILY
miconazole nitrate [Miconazorb AF] 2 % powder
1 applic topical BID
Discontinued
diltiazem HCl [Cardizem CD] 240 MG capsule,extended release 24hr
300 mg PO DAILY
Discharge Orders:
Discharge Patient (As Directed); Ordered 01/28/25
Ordered By: Jayden Kent
Discharge Date and Time
Print Language: MACEDONIAN
[2025-01-28] MEDS: PERCOCET 5/325 1 TABLET PO ×3 (10:43→22:58)
--- NOTE | 2025-01-28 11:26 | W.PN.ID1 ---
Date of Service
Date of Service: January 28, 2025
Today's Communication
continue oral cefdinir through 02/03/25
Assessment / Plan
PNA (CAP)
Leukocytosis
Positive blood culture (1 of 4; anaerobic bottle); possible contaminant
HTN
DM
Anxiety/depression
Hx DVT
Chronic low back pain
Recommendations:
Sputum culture with only usual respiratory simona.
continue oral cefdinir through 02/03/25
Trend white count and temperature curve.
Wean O2 as tolerated.
Continue supportive care
����������������������������������������������������������
Chief Complaint
-: Leukocytosis and Pneumonia
Subjective / Review of Systems
afebrile
bp stable
tolerating current therapies
no complaints
Vital Signs / Physical Exam
Vital Signs
Vital Signs
Temp Pulse Resp BP Pulse Ox
98.7 F 89 18 140/65 91
01/28/25 07:12 01/28/25 07:12 01/28/25 07:12 01/28/25 07:12 01/28/25 07:12
Physical Exam
Constitutional: No Acute Distress
Cardiovascular: Regular Rate and S1/S2; Negative Murmur or Rub
Pulmonary: Clear and Symmetric; Negative Wheezes or Rales
Gastrointestinal: Soft, Non Tender, Non Distended and Normal Bowel Sounds
Skin: Warm and Dry; Negative Rash or Jaundice
Objective Data
Lab Data
Lab Results
01/28/25 06:37
01/28/25 06:37
Estimated Creat Clear 49 ml/min 01/28/25 06:37
Lactic Acid Cancelled 01/24/25 05:52
Total Bilirubin 0.3 mg/dl (0.2-1.3) 01/28/25 06:37
AST 17 U/L (14-36) 01/28/25 06:37
ALT 17 U/L (0-35) 01/28/25 06:37
Alkaline Phosphatase 33 U/L (38-126) L 01/28/25 06:37
Most recent labs reviewed.
Micro Results:
01/23/25 14:44 Blood Culture - Preliminary
Blood/Venous No Growth in 4 days- Final report to follow
01/25/25 14:30 Respiratory Culture - Final
Sputum Usual Respiratory Simona
Gram Stain - Final
01/23/25 14:44 Blood Culture - Preliminary
Blood/Venous Coagulase neg. staphylococcus
Additional testing on request
Gram Stain - Preliminary
01/24/25 06:46 Legionella Urinary Antigen - Final
Urine Negative for Legionella pneumophila Serogroup 1 antigen.
A negative result does not rule out the possiblity of
Legionella infection due to other serogroups or species of
Legionella. Clinical correlation is recommended.
Streptococcus pneumoniae Antigen (M - Final
Negative for Streptococcus pneumoniae antigen.
A negative result does not exclude infection with
Streptococcus pneumoniae. Clinical correlation is
recommended.
01/23/25 16:52 Nasal Screen MRSA (PCR) - Final
Nose MRSA not detected - performed by PCR methodology.
01/23/25 16:52 Influenza Types A & B (TONIO) - Final
Nasal Swab Negative for Influenza A & B, NAAT
Negative results must be combined with clinical observations
and patient history.
Nucleic Acid Amplification test (NAAT)performed on the
[employer] platform.
Imaging:
01/23/2025 CT chest (PE study): no pulmonary embolism identified. There is bilateral consolidation consistent with pneumonia, greater in the left lung as compared to the right. There are small pulmonary nodules noted. A small hiatal hernia is
noted. Ingested material throughout the esophagus is consistent with significant dysmotility or reflux. There are multiple mild compression deformities of the thoracic spine with probable chronic appearance. Please see full dictation for
additional detail. Film personally viewed.
01/23/2025 CXR (portable): consolidation throughout the left lung seen on CT is indistinct in the study. There is a small amount of consolidation over the right lower lung. Please see full dictation for additional detail.
[2025-01-28 11:48] LABS: Glucose - Point of Care 191 mg/dl (70-99)
--- NOTE | 2025-01-28 11:56 | W.PN.HOSP.TC ---
Today's Communication/Plan
-
Continue oral antibiotics. encourage ambulation.
Assessment / Plan
Assessment / Plan
Diagnosis present prior to admit:
ppc-tpgrbxa-nrjthilhc diabetes,
essential hypertension,
chronic pain requiring opioids,
depression,
history of spinal stenosis with chronic back pain,
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
s/p Cholecystectomy, , Spinal surgery
Initial presentation and hospital course by problem:
80-year-old woman with a PMH described above, presented after feeling unwell for about a day. She was found hypoxic (80's) and hypotensive (SBP 60's) and was placed on BiPAP and started with levo by EMS. She denied other symptoms, and did not
endorse to significant cough. She was taken off BiPAP in the ED and placed on 15L mid flow. She admited to not taking her meds regularly, except for her opiates.
1. Septic shock POA / CAP, complicated by:
Acute hypoxic resp failure POA
end organ damages evidenced by lactic acidosis, elevated trop, HECTOR, all POA
A CT Chest showed BL consolidation L > R. She responded to antibiotics and was taken Off pressor, off IVF. Her O2 supplementation was weaned from 15L mid flow to 2L NC, which she continues to wean as tolerated. Of note the pt is not on home O2.
Her blood cultures showed coag neg staph, on 01/23 and 1 out of 2, (this was thought to be a contaminant by ID). Her MRSA screen was negative, as was her urine Legionella/Strep Ag. Lastly, her COVID/Flu tests were negative as well. The initial
Zosyn/Vanc was transitioned to Ceftriaxone, and then to oral cefdinir. The cefdinir is to be continued until 02/03/25. She had a SPL evaluation and was cleared for solid/thin. She continues to have occasional cough, WBC is improving.
Continue oral abx and observe for clinical effect
The patient has had multiple infections recquiring admits over the last few weeks.
There may be a deeper underlying issue causing the repeat infections
Have ID and other specialist appointments set up prior to discharge.
2. prerenal HECTOR, resolved
SCr 1.5 -> 0.7; her baseline is 0.8
3. Non-ACS troponin elevation. No chest pain or further symptoms during admit.
4. Essential HTN - chronic
She was resumed on her ususal dose Cardizem
Her BP became better controlled
We recommend to Continue the outpatient lisinopril as well.
5. Non-insulin dependent DM II with an A1C of 6%
The [employer] metformin was on hold while inpatient. This can be resumed at discharge given renal function is back to baseline.
6. Depression - chronic
Continue Remeron, buspirone and venlafaxine
She appears to be in a reasonable mood at time of discharge
7. history of spinal stenosis with chronic back pain, complicated by opiate dependence
Continue [employer] morphine 15 mg p.o. twice daily
Cont [employer] Percocet PRN
8. 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
DVT prophylaxis [employer] Eliquis
CODE STATUS full code
Anticipated Discharge: 24 - 48 hours
Subjective/Interval History
-
Date of Service: January 28, 2025
Feels well. No complaints.
Objective Data
-
Labs:
Laboratory Results
01/28/25
06:37
WBC 12.2 H
Hgb 10.7 L
Hct 33.5 L
Plt Count 355
Sodium 133 L
Potassium 4.0
Chloride 102
Carbon Dioxide 25
BUN 13
Creatinine 0.7
Glucose 108 H
Calcium 8.8
Total Bilirubin 0.3
AST 17
ALT 17
Alkaline Phosphatase 33 L
Vital Signs:
Vital Signs
Temp Pulse Resp BP Pulse Ox
98.7 F 89 18 140/65 1
01/28/25 07:12 01/28/25 07:12 01/28/25 07:12 01/28/25 07:12 01/28/25 08:30
I&O
01/27/25 01/28/25 01/29/25
06:59 06:59 06:59
Intake Total 480 / 480 237 / 237
Balance 480 / 480 237 / 237
Review of Systems
-
History Source: Patient
All other systems: Reviewed and negative
Physical Exam
-
General: Well Developed, Well Nourished, No Apparent Distress, Comfortable and Conversant
Respiratory: Rhonchi and Crackles
Cardiac: Regular Rhythm and S1/S2
GI: Soft, Nontender and Nondistended
Musculoskeletal: No Clubbing and No Cyanosis
Skin: Warm and Dry
Neuro: Awake and Alert
Psych: Calm
Data Reviewed
-
Labs: Labs Reviewed by me
--- NOTE | 2025-01-28 12:00 | CM ---
CM reviewed chart, auth approved for [facility]: 01/27-02/02, NRD 02/03- auth #[id number], call for updates [phone] (Yoel).
CM spoke with patients daughter, Ivelisse Yu- requesting call from Hospitalist, concerns regarding d/c. Update to Hospitalist.
D/c removed.
Plan; [facility] when stable
[facility]
Report: [phone]
[2025-01-28] MEDS: DESENEX/MITRAZOL/ZEASORB TOPICAL (13:20)
[2025-01-28] MEDS: NOVOLOG FLEXPEN-LOW RESISTANCE 1 UNITS SC (13:20)
[2025-01-28] MEDS: DESENEX/MITRAZOL/ZEASORB 1 APPLIC TOPICAL ×2 (15:30→20:22)
--- NOTE | 2025-01-28 15:32 | PTCARENOTE ---
pt refused tri wraps today,see bp, resting, call robin in reach
[2025-01-28 15:57] VITALS: BP 139/63
[2025-01-28 17:06] LABS: Glucose - Point of Care 119 mg/dl (70-99)
[2025-01-28] MEDS: COLACE 100 MG PO (17:33)
--- NOTE | 2025-01-28 17:34 | PTCARENOTE ---
pt oob to chair for meals today with rw and assist of 1
[2025-01-28] MEDS: SENNA SYRUP 8.8 MG PO (20:21)
[2025-01-28] MEDS: DESYREL 150 MG PO (20:23)
[2025-01-28] MEDS: REMERON 15 MG PO (20:25)
[2025-01-28 22:12] LABS: Glucose - Point of Care 146 mg/dl (70-99)
[2025-01-28 23:52] VITALS: BP 150/72
[2025-01-29 07:00] VITALS: BP 154/70
[2025-01-29 07:02] LABS: Hematocrit 31.0 % (37.0-47.0); Hemoglobin 10.2 g/dL (12.0-16.0); Mean Corp Hgb Conc. 32.9 g/dL (33.0-37.0); Mean Corpuscular Volume 88.8 fL (81.0-99.0); Nucleated Red Blood Cells % 0 %; Platelet Count 400 10^3/uL (130-400); Red Cell Dist. Width 14.9 % (11.5-14.5)
--- NOTE | 2025-01-29 07:03 | W.PN.HOSP.TC ---
Today's Communication/Plan
-
Continue current care.
CM please help set up early specialist appointments (Infec Disease)
Assessment / Plan
Assessment / Plan
Diagnosis present prior to admit:
wio-yesdjje-dxutkohtc diabetes,
essential hypertension,
chronic pain requiring opioids,
depression,
history of spinal stenosis with chronic back pain,
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
s/p Cholecystectomy, , Spinal surgery
Initial presentation and hospital course by problem:
80-year-old woman with a PMH described above, presented after feeling unwell for about a day. She was found hypoxic (80's) and hypotensive (SBP 60's) and was placed on BiPAP and started with levo by EMS. She denied other symptoms, and did not
endorse to significant cough. She was taken off BiPAP in the ED and placed on 15L mid flow. She admitted to not taking her meds regularly, except for her opiates.
1. Septic shock POA / CAP, complicated by:
Acute hypoxic resp failure POA
end organ damages evidenced by lactic acidosis, elevated trop, HECTOR, all POA
A CT Chest showed BL consolidation L > R. She responded to antibiotics and was taken Off pressor, off IVF. Her O2 supplementation was weaned from 15L mid flow to 2L NC, which she continues to wean as tolerated. Of note the pt is not on home O2.
Her blood cultures showed coag neg staph, on 01/23 and 1 out of 2, (this was thought to be a contaminant by ID). Her MRSA screen was negative, as was her urine Legionella/Strep Ag. Lastly, her COVID/Flu tests were negative as well. The initial
Zosyn/Vanc was transitioned to Ceftriaxone, and then to oral cefdinir. The cefdinir is to be continued until 02/03/25. She had a SPL evaluation and was cleared for solid/thin. She continues to have occasional cough, WBC is improving.
Continue oral abx and observe for clinical effect
Today's WBC is normal (10.7)
The patient has had multiple infections requiring admits over the last few weeks.
There may be a deeper underlying issue causing the repeat infections, or failure to thrive
It is reasonable to have ID and other specialist appointments set up prior to discharge to optimize handoff to outpatient care and prevent bouncebacks.
2. prerenal HECTOR, resolved
SCr 1.5 -> 0.7; her baseline is 0.8
3. Non-ACS troponin elevation. No chest pain or further symptoms during admit.
4. Essential HTN - chronic
She was resumed on her ususal dose Cardizem
Her BP became better controlled
We recommend to Continue the outpatient lisinopril as well.
5. Non-insulin dependent DM II with an A1C of 6%
The PYR[employer] MECHANIC metformin was on hold while inpatient. This can be resumed at discharge given renal function is back to baseline.
6. Depression - chronic
Continue Remeron, buspirone and venlafaxine
She appears to be in a reasonable mood at time of discharge
7. history of spinal stenosis with chronic back pain, complicated by opiate dependence
Continue PYROM[employer]CH[employer] morphine 15 mg p.o. twice daily
Cont [employer]YR[employer]CH[employer] Percocet PRN
Note that in prior admits she was very sedated with this regimen, now seems ok.
8. 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
DVT prophylaxis PYROM[employer] MECH[employer] Eliquis
CODE STATUS full code
Anticipated Discharge: 24 - 48 hours
Subjective/Interval History
-
Date of Service: January 29, 2025
Sleeping comfortably
Objective Data
-
Labs:
Laboratory Results
01/29/25
06:22
WBC 10.7
Hgb 10.2 L
Hct 31.0 L
Plt Count 400
Sodium Pending
Potassium Pending
Chloride Pending
Carbon Dioxide Pending
BUN Pending
Creatinine Pending
Glucose Pending
Calcium Pending
Total Bilirubin Pending
AST Pending
ALT Pending
Alkaline Phosphatase Pending
Vital Signs:
Vital Signs
Temp Pulse Resp BP Pulse Ox
98.3 F 83 18 150/72 93
01/28/25 23:52 01/28/25 23:52 01/28/25 23:52 01/28/25 23:52 01/28/25 23:52
I&O
01/28/25 01/29/25 01/30/25
06:59 06:59 06:59
Intake Total 237 / 237 630 / 630
Balance 237 / 237 630 / 630
Review of Systems
-
History Source: Patient
All other systems: Reviewed and negative
Physical Exam
-
General: Well Developed, Well Nourished, No Apparent Distress and Comfortable
HEENT: Normocephalic and Atraumatic
Respiratory: Crackles (occasional at bases) and Decreased Breath Sounds
Cardiac: Regular Rhythm and S1/S2
GI: Soft, Nontender and Nondistended
Skin: Warm and Dry
Psych: Calm
Data Reviewed
-
Labs: Labs Reviewed by me
[2025-01-29 07:18] LABS: ALT (SGPT) 22 U/L (0-35); AST (SGOT) 27 U/L (14-36); Albumin 2.6 g/dl (3.5-5.0); Alkaline Phosphatase 37 U/L (38-126); Blood Urea Nitrogen 15 mg/dl (7-17); Calcium 9.2 mg/dl (8.4-10.2); Carbon Dioxide 26 mmol/L (22-30); Chloride 101 mmol/L (98-107); Estimated Creatinine Clearance 43 ml/min; Glucose 105 mg/dl (70-99); Potassium 3.9 mmol/L (3.5-5.1); Sodium 130 mmol/L (135-145); Total Protein 5.1 g/dl (6.3-8.2); eGFR > 60.00
[2025-01-29 07:37] LABS: Glucose - Point of Care 115 mg/dl (70-99)
[2025-01-29] MEDS: NOVOLOG FLEXPEN-LOW RESISTANCE SC (08:41)
[2025-01-29] MEDS: BUSPAR 10 MG PO ×2 (08:42→19:18)
[2025-01-29] MEDS: EFFEXOR XR 225 MG PO (08:42)
[2025-01-29] MEDS: PROTONIX 40 MG PO (08:42)
[2025-01-29] MEDS: CARDIZEM CD 300 MG PO (08:42)
[2025-01-29] MEDS: ZESTRIL 40 MG PO (08:42)
[2025-01-29] MEDS: MS CONTIN (EXTENDED RELEASE) 15 MG PO ×2 (08:43→19:18)
[2025-01-29] MEDS: OMNICEF 300 MG PO ×2 (08:43→19:19)
[2025-01-29] MEDS: SENNA SYRUP 8.8 MG PO ×2 (08:43→19:18)
[2025-01-29] MEDS: ELIQUIS 2.5 MG PO ×2 (08:43→19:18)
[2025-01-29] MEDS: DESENEX/MITRAZOL/ZEASORB 1 APPLIC TOPICAL ×2 (08:49→19:20)
--- NOTE | 2025-01-29 10:26 | W.PN.ID1 ---
Date of Service
Date of Service: January 29, 2025
Today's Communication
continue oral cefdinir through 02/03/25
Assessment / Plan
PNA (CAP)
Leukocytosis
Positive blood culture (1 of 4; anaerobic bottle); possible contaminant
HTN
DM
Anxiety/depression
Hx DVT
Chronic low back pain
Recommendations:
Sputum culture with only usual respiratory simona.
continue oral cefdinir through 02/03/25
Trend white count and temperature curve.
discussed with Dr Kent who reports daughter is concerned about recurrent infections (pneumonia, UTI and diarrhea - thought to be due to metformin), will check IgM, IgG, IgA levels
Patient can follow up with PCP
����������������������������������������������������������
Chief Complaint
-: Leukocytosis and Pneumonia
Subjective / Review of Systems
afebrile
bp stable
no events overnight
no complaints
Vital Signs / Physical Exam
Vital Signs
Vital Signs
Temp Pulse Resp BP Pulse Ox
98.2 F 78 16 154/70 93
01/29/25 07:00 01/29/25 07:00 01/29/25 07:00 01/29/25 08:42 01/29/25 07:00
Physical Exam
Constitutional: No Acute Distress
Cardiovascular: Regular Rate and S1/S2; Negative Murmur or Rub
Pulmonary: Clear and Symmetric; Negative Wheezes or Rales
Gastrointestinal: Soft, Non Tender, Non Distended and Normal Bowel Sounds
Skin: Warm and Dry; Negative Rash or Jaundice
Objective Data
Lab Data
Lab Results
01/29/25 06:22
01/29/25 06:22
Estimated Creat Clear 43 ml/min 01/29/25 06:22
Lactic Acid Cancelled 01/24/25 05:52
Total Bilirubin 0.3 mg/dl (0.2-1.3) 01/29/25 06:22
AST 27 U/L (14-36) 01/29/25 06:22
ALT 22 U/L (0-35) 01/29/25 06:22
Alkaline Phosphatase 37 U/L (38-126) L 01/29/25 06:22
Most recent labs reviewed.
Micro Results:
01/23/25 14:44 Blood Culture - Final
Blood/Venous No Growth - Final Report
01/25/25 14:30 Respiratory Culture - Final
Sputum Usual Respiratory Simona
Gram Stain - Final
01/23/25 14:44 Blood Culture - Preliminary
Blood/Venous Coagulase neg. staphylococcus
Additional testing on request
Gram Stain - Preliminary
01/24/25 06:46 Legionella Urinary Antigen - Final
Urine Negative for Legionella pneumophila Serogroup 1 antigen.
A negative result does not rule out the possiblity of
Legionella infection due to other serogroups or species of
Legionella. Clinical correlation is recommended.
Streptococcus pneumoniae Antigen (M - Final
Negative for Streptococcus pneumoniae antigen.
A negative result does not exclude infection with
Streptococcus pneumoniae. Clinical correlation is
recommended.
01/23/25 16:52 Nasal Screen MRSA (PCR) - Final
Nose MRSA not detected - performed by PCR methodology.
01/23/25 16:52 Influenza Types A & B ([facility]) - Final
Nasal Swab Negative for Influenza A & B, NAAT
Negative results must be combined with clinical observations
and patient history.
Nucleic Acid Amplification test (NAAT)performed on the
[employer] platform.
Imaging:
01/23/2025 CT chest (PE study): no pulmonary embolism identified. There is bilateral consolidation consistent with pneumonia, greater in the left lung as compared to the right. There are small pulmonary nodules noted. A small hiatal hernia is
noted. Ingested material throughout the esophagus is consistent with significant dysmotility or reflux. There are multiple mild compression deformities of the thoracic spine with probable chronic appearance. Please see full dictation for
additional detail. Film personally viewed.
01/23/2025 CXR (portable): consolidation throughout the left lung seen on CT is indistinct in the study. There is a small amount of consolidation over the right lower lung. Please see full dictation for additional detail.
Care Review
Plan reviewed with: Physician (Dr Kent - recurrent infections)
[2025-01-29] MEDS: PERCOCET 5/325 1 TABLET PO ×3 (11:07→20:06)
[2025-01-29 11:57] LABS: Glucose - Point of Care 216 mg/dl (70-99)
[2025-01-29] MEDS: NOVOLOG FLEXPEN-LOW RESISTANCE 2 UNITS SC (14:15)
[2025-01-29 15:00] VITALS: BP 133/72
[2025-01-29 16:39] LABS: Glucose - Point of Care 164 mg/dl (70-99)
[2025-01-29] MEDS: NOVOLOG FLEXPEN-LOW RESISTANCE 1 UNITS SC (16:54)
[2025-01-29] MEDS: REMERON 15 MG PO (21:10)
[2025-01-29] MEDS: DESYREL 150 MG PO (21:10)
[2025-01-29 22:04] LABS: Glucose - Point of Care 166 mg/dl (70-99)
[2025-01-29 23:20] VITALS: BP 145/67
[2025-01-30 07:20] VITALS: BP 148/67
[2025-01-30 07:20] LABS: Glucose - Point of Care 108 mg/dl (70-99)
[2025-01-30] MEDS: NOVOLOG FLEXPEN-LOW RESISTANCE SC ×2 (08:01→11:44)
[2025-01-30 08:04] LABS: Hematocrit 31.2 % (37.0-47.0); Hemoglobin 10.2 g/dL (12.0-16.0); Mean Corp Hgb Conc. 32.7 g/dL (33.0-37.0); Mean Corpuscular Volume 89.7 fL (81.0-99.0); Nucleated Red Blood Cells % 0 %; Platelet Count 460 10^3/uL (130-400); Red Cell Dist. Width 14.9 % (11.5-14.5)
[2025-01-30] MEDS: PROTONIX 40 MG PO (08:53)
[2025-01-30] MEDS: ELIQUIS 2.5 MG PO (08:54)
[2025-01-30] MEDS: COLACE 100 MG PO (08:54)
[2025-01-30] MEDS: EFFEXOR XR 225 MG PO (08:54)
[2025-01-30] MEDS: OMNICEF 300 MG PO (08:54)
[2025-01-30] MEDS: SENNA SYRUP 8.8 MG PO (08:54)
[2025-01-30] MEDS: MS CONTIN (EXTENDED RELEASE) 15 MG PO (08:54)
[2025-01-30] MEDS: PERCOCET 5/325 1 TABLET PO (08:54)
[2025-01-30] MEDS: BUSPAR 10 MG PO (08:54)
[2025-01-30] MEDS: CARDIZEM CD 300 MG PO (08:54)
[2025-01-30] MEDS: DESENEX/MITRAZOL/ZEASORB 1 APPLIC TOPICAL (08:55)
[2025-01-30] MEDS: ZESTRIL 40 MG PO (08:55)
[2025-01-30 09:08] LABS: ALT (SGPT) 35 U/L (0-35); AST (SGOT) 43 U/L (14-36); Albumin 2.6 g/dl (3.5-5.0); Alkaline Phosphatase 42 U/L (38-126); Blood Urea Nitrogen 13 mg/dl (7-17); Calcium 8.9 mg/dl (8.4-10.2); Carbon Dioxide 25 mmol/L (22-30); Chloride 102 mmol/L (98-107); Estimated Creatinine Clearance 49 ml/min; Glucose 99 mg/dl (70-99); Potassium 4.3 mmol/L (3.5-5.1); Sodium 132 mmol/L (135-145); Total Protein 5.1 g/dl (6.3-8.2); eGFR > 60.00
[2025-01-30 09:33] VITALS: O2SAT 91
[2025-01-30 11:38] LABS: Glucose - Point of Care 147 mg/dl (70-99)
--- NOTE | 2025-01-30 12:32 | CM ---
Pt discharged today to [facility] today at 5PM. Pt is on 1 LPM nasal cannula. Dtr Alysa dooley
--- NOTE | 2025-01-30 13:43 | W.PN.ID1 ---
Date of Service
Date of Service: January 30, 2025
Today's Communication
Continue antibiotics. See below�
Assessment / Plan
PNA (CAP)
Leukocytosis
Positive blood culture (1 of 4; anaerobic bottle); possible contaminant
HTN
DM
Anxiety/depression
Hx DVT
Chronic low back pain
Recommendations:
Sputum culture with only usual respiratory simona.
continue oral cefdinir through 02/03/25
Immunoglobulin levels ordered; await results
Patient can follow up with PCP
����������������������������������������������������������
Chief Complaint
-: Leukocytosis and Pneumonia
Subjective / Review of Systems
Review of Systems: No Fever, No Chills, No Cough and No Sputum Production
Vital Signs / Physical Exam
Vital Signs
Vital Signs
Temp Pulse Resp BP Pulse Ox
98.3 F 81 20 148/67 93
01/30/25 07:20 01/30/25 07:20 01/30/25 07:20 01/30/25 07:20 01/30/25 07:20
Physical Exam
Constitutional: No Acute Distress
Cardiovascular: S1/S2 and S3/S4
Pulmonary: Clear, Symmetric and Non Labored; Negative Wheezes or Rales
Gastrointestinal: Soft, Non Tender, Non Distended and Normal Bowel Sounds
Skin: Warm and Dry; Negative Rash or Jaundice
Neurological: Awake and Alert
Psychological: Calm
Objective Data
Lab Data
Lab Results
01/30/25 07:06
01/30/25 07:06
Estimated Creat Clear 49 ml/min 01/30/25 07:06
Lactic Acid Cancelled 01/24/25 05:52
Total Bilirubin 0.2 mg/dl (0.2-1.3) 01/30/25 07:06
AST 43 U/L (14-36) H 01/30/25 07:06
ALT 35 U/L (0-35) 01/30/25 07:06
Alkaline Phosphatase 42 U/L (38-126) 01/30/25 07:06
Most recent labs reviewed.
Micro Results:
01/23/25 14:44 Blood Culture - Final
Blood/Venous Coagulase neg. staphylococcus
Additional testing on request
Gram Stain - Final
01/23/25 14:44 Blood Culture - Final
Blood/Venous No Growth - Final Report
01/25/25 14:30 Respiratory Culture - Final
Sputum Usual Respiratory Simona
Gram Stain - Final
01/24/25 06:46 Legionella Urinary Antigen - Final
Urine Negative for Legionella pneumophila Serogroup 1 antigen.
A negative result does not rule out the possiblity of
Legionella infection due to other serogroups or species of
Legionella. Clinical correlation is recommended.
Streptococcus pneumoniae Antigen (M - Final
Negative for Streptococcus pneumoniae antigen.
A negative result does not exclude infection with
Streptococcus pneumoniae. Clinical correlation is
recommended.
01/23/25 16:52 Nasal Screen MRSA (PCR) - Final
Nose MRSA not detected - performed by PCR methodology.
01/23/25 16:52 Influenza Types A & B ([facility]) - Final
Nasal Swab Negative for Influenza A & B, NAAT
Negative results must be combined with clinical observations
and patient history.
Nucleic Acid Amplification test (NAAT)performed on the
[employer] platform.
Imaging:
01/23/2025 CT chest (PE study): no pulmonary embolism identified. There is bilateral consolidation consistent with pneumonia, greater in the left lung as compared to the right. There are small pulmonary nodules noted. A small hiatal hernia is
noted. Ingested material throughout the esophagus is consistent with significant dysmotility or reflux. There are multiple mild compression deformities of the thoracic spine with probable chronic appearance. Please see full dictation for
additional detail. Film personally viewed.
01/23/2025 CXR (portable): consolidation throughout the left lung seen on CT is indistinct in the study. There is a small amount of consolidation over the right lower lung. Please see full dictation for additional detail.
Chest X-Ray: Image Reviewed and Report Reviewed
CT Scan: Image Reviewed and Report Reviewed
[2025-01-30 15:19] VITALS: BP 137/70
== END 2025-01-30 17:00 | DRG 871 ==
LOC: 4 WEST ACU 17:05
PROVIDERS: ADMITTING PHYSICIAN Internal Medicine; ATTENDING PHYSICIAN Internal Medicine; EMERGENCY PHYSICIAN Emergency Medicine; FAMILY PHYSICIAN Family Medicine; OTHER PHYSICIAN Internal Medicine Infectious Disease
DX: A41.9 Sepsis, unspecified organism (principal); J18.9 Pneumonia, unspecified organism; R65.21 Severe sepsis with septic shock; J96.01 Acute respiratory failure with hypoxia; E87.20 Acidosis, unspecified; N17.9 Acute kidney failure, unspecified; F11.20 Opioid dependence, uncomplicated; E11.9 Type 2 diabetes mellitus without complications; I10 Essential (primary) hypertension; G89.29 Other chronic pain; F32.A Depression, unspecified; M48.00 Spinal stenosis, site unspecified; Z90.49 Acquired absence of other specified parts of digestive tract; Z86.718 Personal history of other venous thrombosis and embolism; Z79.01 Long term (current) use of anticoagulants; Z79.84 Long term (current) use of oral hypoglycemic drugs; Z79.899 Other long term (current) drug therapy; F41.9 Anxiety disorder, unspecified; Z11.52 Encounter for screening for COVID-19; L89.611 Pressure ulcer of right heel, stage 1; L89.621 Pressure ulcer of left heel, stage 1
CPT/HCPCS: 71045; 71275; 80048; 80053; 80202; 81003; 81015; 82784; 82962; 83036; 83605; 83880; 84484; 85025; 87040; 87070; 87147; 87154; 87205; 87449; 87502; 87641; 87811; 87899; 92526; 92610; 93005; 94640; 96361; 96374; 97116; 97163; 97167; 97530; 97535; 99291; Q9967

== ENCOUNTER → 2025-02-02 10:59 | Outpatient (REF) | payer OTHER, SELFPAY ==
[2025-02-02 11:26] LABS: Hematocrit 29.3 % (37.0-47.0); Hemoglobin 9.5 g/dL (12.0-16.0); Mean Corp Hgb Conc. 32.4 g/dL (33.0-37.0); Mean Corpuscular Volume 87.2 fL (81.0-99.0); Nucleated Red Blood Cells % 0 %; Platelet Count 513 10^3/uL (130-400); Red Cell Dist. Width 14.8 % (11.5-14.5)
[2025-02-02 14:05] LABS: Blood Urea Nitrogen 12 mg/dl (7-17); Calcium 8.5 mg/dl (8.4-10.2); Carbon Dioxide 28 mmol/L (22-30); Chloride 101 mmol/L (98-107); Glucose 152 mg/dl (70-99); Potassium 4.6 mmol/L (3.5-5.1); Sodium 130 mmol/L (135-145); eGFR > 60.00
== END ==
LOC: OLABP 10:59
PROVIDERS: ATTENDING PHYSICIAN Family Medicine
DX: J18.9 Pneumonia, unspecified organism (principal); A41.9 Sepsis, unspecified organism; I10 Essential (primary) hypertension; E11.9 Type 2 diabetes mellitus without complications; F41.9 Anxiety disorder, unspecified; F32.A Depression, unspecified; M54.50 Low back pain, unspecified
CPT/HCPCS: 36415; 80048; 85025

== ENCOUNTER → 2025-02-03 11:19 | Outpatient (REF) | payer OTHER, SELFPAY ==
[2025-02-03 12:19] LABS: Blood Urea Nitrogen 13 mg/dl (7-17); Calcium 8.2 mg/dl (8.4-10.2); Carbon Dioxide 28 mmol/L (22-30); Chloride 99 mmol/L (98-107); Glucose 98 mg/dl (70-99); Potassium 5.0 mmol/L (3.5-5.1); Sodium 129 mmol/L (135-145); eGFR > 60.00
== END ==
LOC: OLABP 11:19
PROVIDERS: ATTENDING PHYSICIAN Family Medicine
DX: J18.9 Pneumonia, unspecified organism (principal); A41.9 Sepsis, unspecified organism; I10 Essential (primary) hypertension; E11.9 Type 2 diabetes mellitus without complications; F41.9 Anxiety disorder, unspecified; F32.A Depression, unspecified; M54.50 Low back pain, unspecified
CPT/HCPCS: 36415; 80048

== ENCOUNTER → 2025-02-06 10:16 | Outpatient (REF) | payer OTHER, SELFPAY ==
[2025-02-06 11:42] LABS: Blood Urea Nitrogen 20 mg/dl (7-17); Calcium 8.9 mg/dl (8.4-10.2); Carbon Dioxide 27 mmol/L (22-30); Chloride 101 mmol/L (98-107); Glucose 127 mg/dl (70-99); Potassium 5.0 mmol/L (3.5-5.1); Sodium 131 mmol/L (135-145); eGFR > 60.00
== END ==
LOC: OLABP 10:16
PROVIDERS: ATTENDING PHYSICIAN Family Medicine
DX: M54.50 Low back pain, unspecified (principal); J18.9 Pneumonia, unspecified organism; A41.9 Sepsis, unspecified organism; I10 Essential (primary) hypertension; E11.9 Type 2 diabetes mellitus without complications; F41.9 Anxiety disorder, unspecified; F32.A Depression, unspecified
CPT/HCPCS: 36415; 80048

== ENCOUNTER → 2025-02-13 09:59 | Outpatient (REF) | payer OTHER, SELFPAY ==
[2025-02-13 12:51] LABS: Blood Urea Nitrogen 17 mg/dl (7-17); Calcium 8.9 mg/dl (8.4-10.2); Carbon Dioxide 26 mmol/L (22-30); Chloride 104 mmol/L (98-107); Glucose 79 mg/dl (70-99); Potassium 4.7 mmol/L (3.5-5.1); Sodium 132 mmol/L (135-145); eGFR > 60.00
== END ==
LOC: OLABP 09:59
PROVIDERS: ATTENDING PHYSICIAN Family Medicine
DX: J18.9 Pneumonia, unspecified organism (principal); A41.9 Sepsis, unspecified organism; E11.9 Type 2 diabetes mellitus without complications; F41.9 Anxiety disorder, unspecified; F32.A Depression, unspecified; M54.50 Low back pain, unspecified
CPT/HCPCS: 36415; 80048

== ENCOUNTER → 2025-02-17 10:26 | Outpatient (REF) | payer OTHER, SELFPAY ==
[2025-02-17 11:50] LABS: Blood Urea Nitrogen 31 mg/dl (7-17); Calcium 8.6 mg/dl (8.4-10.2); Carbon Dioxide 25 mmol/L (22-30); Chloride 100 mmol/L (98-107); Glucose 81 mg/dl (70-99); Potassium 4.8 mmol/L (3.5-5.1); Sodium 129 mmol/L (135-145); eGFR 50.17
== END ==
LOC: OLABP 10:26
PROVIDERS: ATTENDING PHYSICIAN Family Medicine
DX: J18.9 Pneumonia, unspecified organism (principal); A41.9 Sepsis, unspecified organism; I10 Essential (primary) hypertension; E11.9 Type 2 diabetes mellitus without complications; F41.9 Anxiety disorder, unspecified; F32.A Depression, unspecified; M54.50 Low back pain, unspecified
CPT/HCPCS: 36415; 80048

== ENCOUNTER → 2025-02-21 12:39 | Outpatient (REF) | payer OTHER, SELFPAY ==
[2025-02-21 14:54] LABS: Blood Urea Nitrogen 24 mg/dl (7-17); Calcium 9.3 mg/dl (8.4-10.2); Carbon Dioxide 24 mmol/L (22-30); Chloride 104 mmol/L (98-107); Glucose 78 mg/dl (70-99); Potassium 4.8 mmol/L (3.5-5.1); Sodium 131 mmol/L (135-145); eGFR > 60.00
== END ==
LOC: OLABP 12:39
PROVIDERS: ATTENDING PHYSICIAN Family Medicine
DX: I10 Essential (primary) hypertension (principal); E11.9 Type 2 diabetes mellitus without complications; F41.9 Anxiety disorder, unspecified; F32.A Depression, unspecified; M54.50 Low back pain, unspecified
CPT/HCPCS: 36415; 80048

== ENCOUNTER → 2025-02-22 09:23 | Outpatient (REF) | payer OTHER, SELFPAY | LOC: RST 09:23 | PROVIDERS: FAMILY PHYSICIAN Family Medicine | DX: R13.10 Dysphagia, unspecified (principal) | CPT/HCPCS: 74220 ==